=== PATIENT | male | born 1950 | race Caucasian/White ===

== ENCOUNTER 2018-08-11 03:12 | Outpatient (CLI) | payer MEDICARE, OTHER, SELFPAY ==
[2018-08-11 09:03] LABS: ALT 39 U/L (12-78); AST 22 U/L (15-37); Albumin 3.7 g/dL (3.4-5.0); Alkaline Phosphatase 81 U/L (46-116); Anion Gap 10.7 mmol/L (3-11); BUN 17 mg/dL (7-18); Bilirubin, Total 1.1 mg/dL (0.2-1.0); CO2 27.3 mmol/L (21.0-32.0); CREATININE 0.88 mg/dL (0.70-1.30); Calcium 8.8 mg/dL (8.5-10.1); Chloride 103 mmol/L (98-107); Cholesterol 143 mg/dL (50-200); Glucose 95 mg/dL (70-100); HDL Cholesterol 59 mg/dL (40-60); LDL CHOLESTEROL 79 mg/dL (<100); Potassium 4.2 mmol/L (3.5-5.1); Sodium 141 mmol/L (136-145); Triglyceride 80 mg/dL (30-150)
== END 2018-08-11 03:32 ==
PROVIDERS: PCP Family Medicine; Visit Provider Family Medicine
DX: E78.5 Hyperlipidemia, unspecified (principal); I10 Essential (primary) hypertension; I25.810 Atherosclerosis of coronary artery bypass graft(s) without angina pectoris
CPT/HCPCS: 36415; 80053; 80061; 83721

== ENCOUNTER 2019-10-03 01:37 | Outpatient (CLI) | payer MEDICARE, OTHER, SELFPAY ==
[2019-10-03 08:06] LABS: HCT 48.3 % (40.0-50.0); HGB 16.3 g/dL (13.5-17.5); Mean Corp. HGB Concentration 33.7 g/dL (32.0-36.0); Mean Corpuscular Hemoglobin 32.3 pg (27.0-33.0); Mean Corpuscular Volume 95.8 fL (80-95); Mean Platelet Volume 9.4 fL (8.0-11.0); Platelet Count 273 x1000/uL (130-400); RBC 5.04 m/cumm (4.50-6.00); White Blood Cell Count 6.73 k/cumm (4.4-10.8)
[2019-10-03 09:30] LABS: ALT 40 U/L (16-63); AST 17 U/L (15-37); Albumin 3.6 g/dL (3.4-5.0); Alkaline Phosphatase 84 U/L (46-116); Anion Gap 8.9 mmol/L (3-11); BUN 15 mg/dL (7-18); Bilirubin, Total 0.8 mg/dL (0.2-1.0); CO2 28.1 mmol/L (21.0-32.0); CREATININE 0.82 mg/dL (0.70-1.30); Calcium 8.9 mg/dL (8.5-10.1); Calculated LDL 83 mg/dL; Chloride 104 mmol/L (98-107); Cholesterol 159 mg/dL (<200); Glucose 102 mg/dL (74-106); HDL Cholesterol 56 mg/dL (40-60); Potassium 4.1 mmol/L (3.5-5.1); Sodium 141 mmol/L (136-145); Total Protein 7.3 g/dL (6.4-8.2); Triglyceride 102 mg/dL (<150)
== END 2019-10-03 01:57 ==
PROVIDERS: PCP Family Medicine; Visit Provider Family Medicine
DX: E78.5 Hyperlipidemia, unspecified (principal); I25.810 Atherosclerosis of coronary artery bypass graft(s) without angina pectoris
CPT/HCPCS: 36415; 80053; 80061; 85027

== ENCOUNTER 2020-09-01 02:46 | Outpatient (CLI) | payer MEDICARE, OTHER, SELFPAY ==
[2020-09-01 10:31] LABS: ALT 52 U/L (16-63); AST 28 U/L (15-37); Albumin 3.7 g/dL (3.4-5.0); Alkaline Phosphatase 75 U/L (46-116); Anion Gap 10.5 mmol/L (3-11); BUN 17 mg/dL (7-18); Bilirubin, Total 0.8 mg/dL (0.2-1.0); CO2 26.5 mmol/L (21.0-32.0); Calcium 8.9 mg/dL (8.5-10.1); Calculated LDL 86 mg/dL (<100); Chloride 105 mmol/L (98-107); Cholesterol 167 mg/dL (<200); Glucose 102 mg/dL (74-106); HDL Cholesterol 62 mg/dL (40-60); Magnesium 2.2 mg/dL (1.8-2.4); Potassium 4.4 mmol/L (3.5-5.1); Sodium 142 mmol/L (136-145); Total Protein 7.3 g/dL (6.4-8.2); Triglyceride 96 mg/dL (<150)
== END 2020-09-01 03:06 ==
PROVIDERS: PCP Family Medicine; Visit Provider Family Medicine
DX: E78.5 Hyperlipidemia, unspecified (principal); I10 Essential (primary) hypertension; I25.810 Atherosclerosis of coronary artery bypass graft(s) without angina pectoris
CPT/HCPCS: 36415; 80053; 80061; 83735

== ENCOUNTER 2021-03-03 17:01 | Emergency (ER) | payer MEDICARE, OTHER, SELFPAY ==
[2021-03-03 17:07] VITALS: BP 131/72; PULSE 68; RESP 20; TEMP 36.2; O2SAT 95
[2021-03-03] MEDS: Acetaminophen 500 MG TAB 1000 MG PO (17:26)
--- NOTE | 2021-03-03 17:28 | W.ED.GENAD ---
Discharge Plan Disposition Patient Disposition: HOME Condition: Improving Discharge Details Clinical Impression: Laceration of left ring finger Primary Care Provider: Jenise Corbin ED Provider: Jamie Joyce Home Meds and New Rx's Prescriptions: Continued loratadine [Allergy Relief (loratadine)] 10 mg tablet 10 mg PO DAILY RF: 0 atorvastatin 40 mg tablet 40 mg PO DAILY Qty: 90 RF: 12 betamethasone dipropionate 0.05 % ointment 1 applic topical BID PRN (Reason: rash) Qty: 45 RF: 3 clopidogrel [Plavix] 75 mg tablet 75 mg PO DAILY Qty: 90 RF: 4 celecoxib [Celebrex] 200 mg capsule 200 mg PO DAILY Qty: 90 RF: 5 diltiazem HCl [Cartia XT] 180 mg capsule,extended release 24hr 180 mg PO DAILY Qty: 90 RF: 12 magnesium chloride [Mag 64] 64 mg tablet,delayed release (DR/EC) 128 mg PO DAILY Qty: 180 RF: 4 nitroglycerin [Nitrostat] 0.3 mg tablet, sublingual 0.3 mg sublingual Q5-15M MDD 3 PRN (Reason: chest pain) Qty: 25 RF: 4 triamterene-hydrochlorothiazid 37.5-25 mg tablet 0.5 tab PO DAILY Qty: 45 RF: 5 aspirin [Ecotrin Low Strength] 81 MG tablet,delayed release (DR/EC) 81 mg PO DAILY RF: 0 gzvtlpxscrp-miiqzkoxo-rqd C-Mn 1 EACH tablet 1 ea PO BID RF: 0 cinnamon bark (bulk) 1 GM powder 1 tsp PO DAILY RF: 0 multivitamin [Daily Vitamin] 1 EACH tablet 1 tab PO DAILY RF: 0 honey flavor (bulk) 120 ML liquid 1 tsp PO QAM RF: 0 Discharge Instructions Instructions: Finger Laceration (ED) Additional Instructions: Return for removal of sutures in 7 to 10 days time. Return sooner if you develop fever, foul-smelling discharge from the wound, spreading redness, or any other acute concerns. Leave current Band-Aid in place for 48 hours, then may perform once daily gentle soap and water cleanse, pat dry and replace Band-Aid. Wear splint as needed for comfort. Continue your regular medications. Medical Decision Making 70-year-old male who lacerated the volar surface of his right ring finger while lifting up an unknown hitched tailgate on a 1 ton dump truck. Finger was pinched. He states his tetanus is up-to-date. He was not injured in any other way. He has slight dysesthesia of the distal radial aspect of the volar pad of the finger. Sensation is otherwise intact including two-point discrimination approximately 1 cm. Patient referred for x-ray which does not reveal underlying bony injury. The wound was anesthetized with digital block, irrigated, examined in a bloodless field without evidence of foreign body. Repaired with interrupted 8-0 nylon sutures. Splint offered for comfort. Patient will return to ER for removal of stitches. He understands return indications in the interim. HPI General Mode of arrival: ambulatory. Date/Time Provider Initiated Documentation: 03/03/21 17:03. Limitations to Documentation: no limitations. Information obtained by: patient. History of Present Illness 70 year old M presents to the emergency department with the chief complaint of R 4th finger inj, described as moderate, Quality is described as dull and constant, and is localized to the right and upper extremity. Patient reports no radiation. Patient started experiencing this minute(s) and it has been constant. No relieving factors improve symptom(s), No exacerbating factors reported . Patient notes no other symptoms.. Patient did receive the following treatments prior to arrival, none HPI Narrative: R 4th ring finger injury Related Data Home Medications Medication Instructions Recorded Confirmed aspirin [Ecotrin Low Strength] 81 mg PO DAILY tab-cap 04/04/13 03/03/21 yqrblkxdlrj-gjhpsqqgy-eff C-Mn 1 ea PO BID 04/04/13 03/03/21 cinnamon bark (bulk) 1 tsp PO DAILY 07/31/13 03/03/21 multivitamin [Daily Vitamin] 1 tab PO DAILY 07/30/14 03/03/21 honey flavor (bulk) 1 tsp PO QAM 07/13/15 03/03/21 loratadine 10 mg tablet 10 mg PO DAILY 10/09/19 03/03/21 atorvastatin 40 mg tablet 40 mg PO DAILY #90 tab-cap 10/13/20 03/03/21 betamethasone dipropionate 0.05 % 1 applic TOPICAL BID PRN #45 g 10/13/20 03/03/21 topical ointment celecoxib 200 mg capsule 200 mg PO DAILY #90 cap 10/13/20 03/03/21 clopidogrel 75 mg tablet 75 mg PO DAILY #90 tab-cap 10/13/20 03/03/21 diltiazem HCl 180 mg 180 mg PO DAILY #90 tab-cap 10/13/20 03/03/21 capsule,extended release 24 hr magnesium chloride 64 mg 128 mg PO DAILY #180 tab 10/13/20 03/03/21 (magnesium chloride) tablet,delayed release nitroglycerin 0.3 mg sublingual 0.3 mg SUBLINGUAL Q5-15M PRN #25 10/13/20 03/03/21 tablet tab-cap MDD 3 triamterene 37.5 0.5 tab PO DAILY #45 tab 10/13/20 03/03/21 mg-hydrochlorothiazide 25 mg tablet Previous Rx's Medication Instructions Recorded atorvastatin 40 mg tablet 40 mg PO DAILY #90 tab-cap 10/13/20 betamethasone dipropionate 0.05 % 1 applic TOPICAL BID PRN #45 g 10/13/20 topical ointment celecoxib 200 mg capsule 200 mg PO DAILY #90 cap 10/13/20 clopidogrel 75 mg tablet 75 mg PO DAILY #90 tab-cap 10/13/20 diltiazem HCl 180 mg 180 mg PO DAILY #90 tab-cap 10/13/20 capsule,extended release 24 hr magnesium chloride 64 mg 128 mg PO DAILY #180 tab 10/13/20 (magnesium chloride) tablet,delayed release nitroglycerin 0.3 mg sublingual 0.3 mg SUBLINGUAL Q5-15M PRN #25 10/13/20 tablet tab-cap MDD 3 triamterene 37.5 0.5 tab PO DAILY #45 tab 10/13/20 mg-hydrochlorothiazide 25 mg tablet Allergies Allergy/AdvReac Type Severity Reaction Status Date / Time Tetanus Vaccines and Toxoid Allergy Unknown LARGE Unverified 03/03/21 17:11 [Tetanus Vaccines \T\ Toxoid] LOCAL REACTION oxycodone AdvReac Intermediate HALLUCINATI Unverified 03/03/21 17:11 ONS ezetimibe AdvReac INTOLERANT Unverified 03/03/21 17:11 CAT HAIR Allergy Unknown Uncoded 03/03/21 17:11 DUST Allergy Unknown Uncoded 03/03/21 17:11 POLLEN EXTRACTS Allergy Unknown Uncoded 03/03/21 17:11 General Stated Complaint: Laceration HUONG: 4 Review of Systems Narrative: Tetatnus up to date, no other injury [facility], [facility] Medical History Actinic keratosis (08/15/17) CAD (coronary artery disease) [place] 1987 w/ CABG stents placed 05/06 stress test 07/2014 CAD (coronary artery disease) of artery bypass graft (10/15/14) [place] 1987 w/ CABG stents placed 05/06 stress test 07/2014 Chronic cystitis CVA (cerebral vascular accident) CVA (cerebral vascular accident) (10/15/14) about 48yoa risidual left sided parasthesias Diverticulosis (10/15/14) pandiverticulosis Eczema (10/15/14) Essential hypertension Essential hypertension (10/05/13) Herpes zoster (09/22/01) Hyperlipidemia Hyperlipidemia (04/09/13) Old myocardial infarction (09/22/88) Smoker Transient ischemic attack Tubular adenoma of colon (10/15/14) Vertigo Surgical History Appendectomy CABG x 3 2002 Colonoscopy - MAC (06/04/16) 06/04/16 Dr Marek Cano, fragements tubular adenoma, repeat 3 years 2008 2012 Patellectomy Status post appendectomy Status post three vessel coronary artery bypass Status post tonsillectomy Status post vasectomy Tonsillectomy Vasectomy Family History (Updated 10/14/20 @ 11:12 by Krysten Harding) Mother , age 67 Breast cancer Lung cancer Brain cancer Father , age 69 Diabetes Alcohol abuse Heart disease Stroke Paternal Grandfather Hypertensive disorder, systemic arterial Heart disease Paternal Grandmother Hypertensive disorder, systemic arterial Maternal Grandmother Diabetes Social History (Updated 10/14/20 @ 11:07 by Krysten Harding) Smoking/Tobacco Use Status: Former Tobacco Use Quit Date: 10/24/1967 Tobacco: How many years used: 5 Second Hand Exposure: Yes Smoking risk assessment performed?: Yes Alcohol Intake: current Alcohol Intake frequency: 0-2 drinks per day Alcohol type: beer and hard liquor Drug use: Never Substance use type: does not use Caregiver/Support person: No Household members: spouse Housing: house Communication Needs: None Do you need help understanding health information?: Rarely Pets and animals: No Sexually active: Yes Do you think of yourself as: straight/heterosexual Current gender identity: male What is your relationship status?: How often do you talk on the phone with friends or family?: three or more times per week How often do you get together with friends or relatives?: three or more times per week How often do you attend mandaeism or sabianist services?: decline to answer Do you belong to any clubs or organized social groups?: decline to answer Panel score (0-1 are the most socially isolated patients): 2 What type of physical activity do you participate in: walking Duration: 30-45 minutes/day Frequency: 5-6 times per week Adrianna/Synagogue: [employer] Special adrianna needs: No Seatbelt use: always Helmet use: Yes Helmet use: always Drive intox or ride w/intox [employer] driver: No Do you feel safe at home: Yes Do you feel safe in your relationship?: Yes Victim of physical abuse: No Victim of emotional abuse: No Victim of sexual abuse: No Would you like helpful sources: No Exam Narrative Exam Narrative: GEN: awake, alert, oriented 3. Pleasant, well groomed, interactive. HEAD: Normocephalic, atraumatic EXT: Right ring finger laceration, motor intact, slight dysesthesia of the distal radial aspect of the volar pad of the finger, chevron shaped volar, 3 cm laceration overlying the midportion of the palmar aspect of the right ring finger. Full ROM, no edema, no rash Neuro: Grossly normal neurologic exam, conversant, interactive. Psych: Speech fluent, thoughts congruent, affect normal Course Vital Signs Vital signs: Vital Signs Temperature 36.2 C L 03/03/21 17:07 Pulse 68 03/03/21 17:07 Respiratory Rate 20 03/03/21 17:07 Blood Pressure 131/72 03/03/21 17:07 Pulse Oximetry 95 03/03/21 17:07 Temperature 36.2 C L 03/03/21 17:07 Temperature Source Temporal Artery Scan 03/03/21 17:07 Pulse 68 03/03/21 17:07 Respiratory Rate 20 03/03/21 17:07 Respiratory Effort 03/03/21 17:15 Blood Pressure 131/72 03/03/21 17:07 Blood Pressure Position Supine 03/03/21 17:07 Pulse Oximetry 95 03/03/21 17:07 Oxygen Delivery Method Room Air 03/03/21 17:07 Oxygen Flow Rate 0 03/03/21 17:07 Pain Level 2 03/03/21 17:26 Procedures Laceration Laceration 1: Site: hand Side (If applicable): right Size (cm): 3.0 Description: irregular and clean Depth: simple, single layer Local Anesthetic: Lidocaine 1% Pre-repair: wound explored, irrigated extensively and deep structures intact Skin layer closed with: nylon Size (cm): 4-0 Number of sutures: 8 Technique: simple, interrupted
--- NOTE | 2021-03-03 17:52 | DI.RAD_ITS ---
Exam(s) XR FINGER RT RING POST REDUC EXAM: XR FINGER RT RING POST REDUC CLINICAL HISTORY: mid volar pain. TECHNIQUE: 2D digital imaging was performed. COMPARISON: No exams were available for comparison FINDINGS: In there is no evidence of acute fracture or dislocation no radiopaque foreign body. No osseous lesi ons. There is moderate narrowing of the metacarpophalangeal joint of the 3rd finger. No erosions at this level nor elsewhere. Significant degenerative changes also noted at the interphalangeal joint of the thumb. Also degenerative changes at the DIP joints of the 2nd-index finger and small calcific density adjacent to this. Also significant degenerative changes at the articulation between the austin mb metacarpal and trapezium. IMPRESSION: DATA REPOSITORY: RADIATION DOSE DELIVERED:
--- NOTE | 2021-03-03 18:06 | DI.VRAD_ITS ---
PROCEDURE INFORMATION: Exam: XR Right Finger(s) Exam date and time: 03/03/2021 5:54 PM Age: 70 years old Clinical indication: Finger(s); Right; Patient HX: Mid volar pain TECHNIQUE: Imaging protocol: XR Right fingers. Views: Minimum 2 views. COMPARISON: No relevant prior studies available. FINDINGS: Bones/joints: There is arthrosis involving the right triscaphe, thumb carpometacarpal and thumb interphalangeal joints with loss of joint space and marginal osteophyte formation, and there is also prominent subchondral cystic change seen at the thumb carpometacarpal articulation. There is spurring of the volar margin of the 3rd metacarpal head and mild arthrosis involving the right index finger interphalangeal joint. No acute fractures are detected. Soft tissues: Unremarkable. 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 Dictated and Authenticated by: Geremias Chaney MD. Ordering:MILTON Ayala MD
== END 2021-03-03 18:17 | disposition home or self-care (01) ==
PROVIDERS: Emergency Provider Emergency Medicine; PCP Family Medicine
DX: S67.194A Crushing injury of right ring finger, initial encounter (principal); S61.214A Laceration without foreign body of right ring finger without damage to nail, initial encounter; W23.0XXA Caught, crushed, jammed, or pinched between moving objects, initial encounter
CPT/HCPCS: 12002; 73140; 99281

== ENCOUNTER 2021-03-13 08:47 | Emergency (ER) | payer MEDICARE, OTHER, SELFPAY ==
--- NOTE | 2021-03-13 08:51 | W.ED.GENAD ---
Discharge Plan Disposition Patient Disposition: HOME Condition: Good Discharge Details Clinical Impression: Laceration of left ring finger Primary Care Provider: Jenise Corbin ED Provider: Kimberley Mullins Home Meds and New Rx's Prescriptions: No Action loratadine [Allergy Relief (loratadine)] 10 mg tablet 10 mg PO DAILY RF: 0 atorvastatin 40 mg tablet 40 mg PO DAILY Qty: 90 RF: 12 betamethasone dipropionate 0.05 % ointment 1 applic topical BID PRN (Reason: rash) Qty: 45 RF: 3 clopidogrel [Plavix] 75 mg tablet 75 mg PO DAILY Qty: 90 RF: 4 celecoxib [Celebrex] 200 mg capsule 200 mg PO DAILY Qty: 90 RF: 5 diltiazem HCl [Cartia XT] 180 mg capsule,extended release 24hr 180 mg PO DAILY Qty: 90 RF: 12 magnesium chloride [Mag 64] 64 mg tablet,delayed release (DR/EC) 128 mg PO DAILY Qty: 180 RF: 4 nitroglycerin [Nitrostat] 0.3 mg tablet, sublingual 0.3 mg sublingual Q5-15M MDD 3 PRN (Reason: chest pain) Qty: 25 RF: 4 triamterene-hydrochlorothiazid 37.5-25 mg tablet 0.5 tab PO DAILY Qty: 45 RF: 5 aspirin [Ecotrin Low Strength] 81 MG tablet,delayed release (DR/EC) 81 mg PO DAILY RF: 0 vxzdgaxtren-gvhbdccbu-cso C-Mn 1 EACH tablet 1 ea PO BID RF: 0 cinnamon bark (bulk) 1 GM powder 1 tsp PO DAILY RF: 0 multivitamin [Daily Vitamin] 1 EACH tablet 1 tab PO DAILY RF: 0 honey flavor (bulk) 120 ML liquid 1 tsp PO QAM RF: 0 Discharge Instructions Instructions: Finger Laceration (ED) Additional Instructions: Please return with spreading redness, worsening pain, or with any new or concerning symptoms Should you have persistent diminished sensation, please follow-up with orthopedics as listed the follow-up alone Referrals: Stefano Hutson MD [ [facility] STAFF PHYSICIAN] - Medical Decision Making Orthopedic referral should symptoms of paresthesia persist No evidence of secondary cellulitis, discharged home to condition with stable vitals Differential Diagnosis Differential Diagnosis: Laceration, tendon injury, abrasion, cellulitis HPI General Mode of arrival: ambulatory. Date/Time Provider Initiated Documentation: 03/13/21 08:48. Limitations to Documentation: no limitations. Information obtained by: patient. HPI Narrative: This 70-year-old gentleman is here for suture removal. He is due to placed on 03 March. He has some mild paresthesias to the distal aspect of the finger but range of motion is intact patient denies any strength or sensation change. Related Data Home Medications Medication Instructions Recorded Confirmed aspirin [Ecotrin Low Strength] 81 mg PO DAILY tab-cap 04/04/13 03/03/21 tnfagizjzii-ayvxtlklb-ugu C-Mn 1 ea PO BID 04/04/13 03/03/21 cinnamon bark (bulk) 1 tsp PO DAILY 07/31/13 03/03/21 multivitamin [Daily Vitamin] 1 tab PO DAILY 07/30/14 03/03/21 honey flavor (bulk) 1 tsp PO QAM 07/13/15 03/03/21 loratadine 10 mg tablet 10 mg PO DAILY 10/09/19 03/03/21 atorvastatin 40 mg tablet 40 mg PO DAILY #90 tab-cap 10/13/20 03/03/21 betamethasone dipropionate 0.05 % 1 applic TOPICAL BID PRN #45 g 10/13/20 03/03/21 topical ointment celecoxib 200 mg capsule 200 mg PO DAILY #90 cap 10/13/20 03/03/21 clopidogrel 75 mg tablet 75 mg PO DAILY #90 tab-cap 10/13/20 03/03/21 diltiazem HCl 180 mg 180 mg PO DAILY #90 tab-cap 10/13/20 03/03/21 capsule,extended release 24 hr magnesium chloride 64 mg 128 mg PO DAILY #180 tab 10/13/20 03/03/21 (magnesium chloride) tablet,delayed release nitroglycerin 0.3 mg sublingual 0.3 mg SUBLINGUAL Q5-15M PRN #25 10/13/20 03/03/21 tablet tab-cap MDD 3 triamterene 37.5 0.5 tab PO DAILY #45 tab 10/13/20 03/03/21 mg-hydrochlorothiazide 25 mg tablet Previous Rx's Medication Instructions Recorded atorvastatin 40 mg tablet 40 mg PO DAILY #90 tab-cap 10/13/20 betamethasone dipropionate 0.05 % 1 applic TOPICAL BID PRN #45 g 10/13/20 topical ointment celecoxib 200 mg capsule 200 mg PO DAILY #90 cap 10/13/20 clopidogrel 75 mg tablet 75 mg PO DAILY #90 tab-cap 10/13/20 diltiazem HCl 180 mg 180 mg PO DAILY #90 tab-cap 10/13/20 capsule,extended release 24 hr magnesium chloride 64 mg 128 mg PO DAILY #180 tab 10/13/20 (magnesium chloride) tablet,delayed release nitroglycerin 0.3 mg sublingual 0.3 mg SUBLINGUAL Q5-15M PRN #25 10/13/20 tablet tab-cap MDD 3 triamterene 37.5 0.5 tab PO DAILY #45 tab 10/13/20 mg-hydrochlorothiazide 25 mg tablet Allergies Allergy/AdvReac Type Severity Reaction Status Date / Time Tetanus Vaccines and Toxoid Allergy Unknown LARGE Unverified 03/03/21 17:11 [Tetanus Vaccines \T\ Toxoid] LOCAL REACTION oxycodone AdvReac Intermediate HALLUCINATI Unverified 03/03/21 17:11 ONS ezetimibe AdvReac INTOLERANT Unverified 03/03/21 17:11 CAT HAIR Allergy Unknown Uncoded 03/03/21 17:11 DUST Allergy Unknown Uncoded 03/03/21 17:11 POLLEN EXTRACTS Allergy Unknown Uncoded 03/03/21 17:11 General HUONG: 4 Review of Systems Narrative: ROS obtained x3 aside from where indicated in HPI [facility] Medical History Actinic keratosis (08/15/17) CAD (coronary artery disease) [place] 1987 w/ CABG stents placed 05/06 stress test 07/2014 CAD (coronary artery disease) of artery bypass graft (10/15/14) [place] 1987 w/ CABG stents placed 05/06 stress test 07/2014 Chronic cystitis CVA (cerebral vascular accident) CVA (cerebral vascular accident) (10/15/14) about 48yoa risidual left sided parasthesias Diverticulosis (10/15/14) pandiverticulosis Eczema (10/15/14) Essential hypertension Essential hypertension (10/05/13) Herpes zoster (09/22/01) Hyperlipidemia Hyperlipidemia (04/09/13) Old myocardial infarction (09/22/88) Smoker Transient ischemic attack Tubular adenoma of colon (10/15/14) Vertigo Surgical History Appendectomy CABG x 3 2002 Colonoscopy - MAC (06/04/16) 06/04/16 Dr Marek Cano, fragements tubular adenoma, repeat 3 years 2008 2012 Patellectomy Status post appendectomy Status post three vessel coronary artery bypass Status post tonsillectomy Status post vasectomy Tonsillectomy Vasectomy Family History (Updated 10/14/20 @ 11:12 by Krysten Harding) Mother , age 67 Breast cancer Lung cancer Brain cancer Father , age 69 Diabetes Alcohol abuse Heart disease Stroke Paternal Grandfather Hypertensive disorder, systemic arterial Heart disease Paternal Grandmother Hypertensive disorder, systemic arterial Maternal Grandmother Diabetes Social History (Updated 10/14/20 @ 11:07 by Krysten Harding) Smoking/Tobacco Use Status: Former Tobacco Use Quit Date: 10/24/1967 Tobacco: How many years used: 5 Second Hand Exposure: Yes Smoking risk assessment performed?: Yes Alcohol Intake: current Alcohol Intake frequency: 0-2 drinks per day Alcohol type: beer and hard liquor Drug use: Never Substance use type: does not use Caregiver/Support person: No Household members: spouse Housing: house Communication Needs: None Do you need help understanding health information?: Rarely Pets and animals: No Sexually active: Yes Do you think of yourself as: straight/heterosexual Current gender identity: male What is your relationship status?: How often do you talk on the phone with friends or family?: three or more times per week How often do you get together with friends or relatives?: three or more times per week How often do you attend orthodox or evangelical services?: decline to answer Do you belong to any clubs or organized social groups?: decline to answer Panel score (0-1 are the most socially isolated patients): 2 What type of physical activity do you participate in: walking Duration: 30-45 minutes/day Frequency: 5-6 times per week Adrianna/Worship: Yazidism Special adrianna needs: No Seatbelt use: always Helmet use: Yes Helmet use: always Drive intox or ride w/intox driver utility worker: No Do you feel safe at home: Yes Do you feel safe in your relationship?: Yes Victim of physical abuse: No Victim of emotional abuse: No Victim of sexual abuse: No Would you like helpful sources: No Exam Neuro Other: left 4th digit with well-approximated laceration without evidence of secondary infection, ROM intact mild diminished sensation to tuft, brisk cap refill
[2021-03-13 08:52] VITALS: BP 139/75; PULSE 76; RESP 14; TEMP 36.4; O2SAT 99
== END 2021-03-13 09:11 | disposition home or self-care (01) ==
PROVIDERS: Emergency Provider Physician Assistant; PCP Family Medicine
DX: Z48.02 Encounter for removal of sutures (principal); S61.215D Laceration without foreign body of left ring finger without damage to nail, subsequent encounter; X58.XXXD Exposure to other specified factors, subsequent encounter

== ENCOUNTER 2021-09-03 02:24 | Outpatient (CLI) | payer MEDICARE, OTHER, SELFPAY ==
[2021-09-05 14:43] LABS: Lipoprotein (a) 287 nmol/L (<75)
== END 2021-09-03 02:25 | disposition home or self-care (01) ==
LOC: LBO 02:24
PROVIDERS: PCP Family Medicine; Visit Provider Family Medicine
DX: I25.810 Atherosclerosis of coronary artery bypass graft(s) without angina pectoris (principal)
CPT/HCPCS: 36415; 83695

== ENCOUNTER 2021-10-06 03:02 | Outpatient (CLI) | payer MEDICARE, OTHER, SELFPAY ==
[2021-10-06 08:12] LABS: HGB 14.2 g/dL (13.5-17.5); MCH 31.7 pg (27.0-33.0); MCHC 32.3 % (32.0-36.0); MCV 98.2 fL (80-95); Platelet Count 303 10^3/uL (130-400); RBC 4.48 10^6/uL (4.36-5.78); RDW 12.9 % (11.8-14.1); RDW-SD 46.3 fL
[2021-10-06 08:48] LABS: ALT 35 U/L (16-63); AST 18 U/L (15-37); Albumin 3.2 g/dL (3.4-5.0); Alkaline Phosphatase 96 U/L (46-116); Anion Gap 8.6 mmol/L (3-11); BUN 15 mg/dL (7-18); Bilirubin, Total 0.7 mg/dL (0.2-1.0); CO2 28.4 mmol/L (21.0-32.0); CREATININE 0.8 mg/dL (0.70-1.30); Calcium 8.7 mg/dL (8.5-10.1); Calculated LDL 78 mg/dL (<100); Chloride 103 mmol/L (98-107); Cholesterol 138 mg/dL (<200); Glucose 106 mg/dL (74-106); HDL Cholesterol 38 mg/dL (40-60); Magnesium 2.1 mg/dL (1.8-2.4); Potassium 4.2 mmol/L (3.5-5.1); Sodium 140 mmol/L (136-145); Total Protein 7.4 g/dL (6.4-8.2); Triglyceride 111 mg/dL (<150)
== END 2021-10-06 03:03 | disposition home or self-care (01) ==
LOC: LBO 03:02
PROVIDERS: PCP Family Medicine; Visit Provider Family Medicine
DX: I10 Essential (primary) hypertension (principal); E78.5 Hyperlipidemia, unspecified
CPT/HCPCS: 36415; 80053; 80061; 85027; 83735

== ENCOUNTER → 2022-04-05 02:01 | Outpatient (CLI) | payer MEDICARE, OTHER, SELFPAY ==
--- NOTE | 2022-04-05 07:00 | DI.MAMMO_ITS ---
Exam(s) US BREAST LT COMPLETE MG MAMMO DIAGNOSTIC BI EXAM: MG MAMMO DIAGNOSTIC BI CLINICAL HISTORY: lt breast lump under nipple,n63.0. COMPARISON: US US BREAST LT COMPLETE from 04/05/2022 [id number] TECHNIQUE: Craniocaudal and mediolateral oblique Full Field Digital Mammography views of both breast s with Computer Aided Diagnosis followed by Tomosynthesis and left breast ultrasound. FINDINGS: Mammography/Tomosynthesis: Masses/Architectural Distortion: None seen. Microcalcifications: No suspicious pleomorphic-type are seen. Skin Thickening/Nipple Retraction: None. There is breast tissue development in the subareolar region of the left breast. The right breast is completely fatty. Left breast US: Echotexture: Small amount of glandular tissue development is noted in the subareolar region.. Shadowing: No suspicious foci. Cyst: None. Solid lesions: None seen. Ductal dilation: None. IMPRESSION: 1. No evidence of malignancy is noted. Findings are consistent with left gynecomastia. BI-RADS Category 2 - Benign Findings Breast Density - Category A - Almost entirely fatty A negative radiographic report should not delay biopsy if a dominant or clinically suspicious mass is present. Up to ten percent of cancers are not identified on mammography. A negative report may reinforce clinical impression. Adenosis and dense breasts may obscure an underlying neoplasm. False positive reports average 6 to 10%. Patient will receive a letter notifying them of these results.
== END ==
PROVIDERS: PCP Nurse Practitioner Family; Visit Provider Nurse Practitioner
DX: N63.42 Unspecified lump in left breast, subareolar (principal); N62 Hypertrophy of breast
CPT/HCPCS: 76642; 77062; 77066; G0279

== ENCOUNTER 2022-08-03 02:56 | Outpatient (CLI) | payer MEDICARE, OTHER, SELFPAY ==
[2022-08-03 07:48] LABS: Hemoglobin A1C 5.9 % (<5.7)
[2022-08-03 08:30] LABS: ALT 33 U/L (16-63); AST 19 U/L (15-37); Albumin 3.5 g/dL (3.4-5.0); Alkaline Phosphatase 91 U/L (46-116); Anion Gap 7.9 mmol/L (3-11); BUN 16 mg/dL (7-18); Bilirubin, Total 0.7 mg/dL (0.2-1.0); CO2 29.1 mmol/L (21.0-32.0); CREATININE 0.7 mg/dL (0.70-1.30); Calcium 9.2 mg/dL (8.5-10.1); Calculated LDL 67 mg/dL (<100); Chloride 102 mmol/L (98-107); Cholesterol 138 mg/dL (<200); Estimated GFR 96.69 (mL/min/1.73m2); Glucose 94 mg/dL (74-106); HDL Cholesterol 52 mg/dL (40-60); Potassium 4.3 mmol/L (3.5-5.1); Sodium 139 mmol/L (136-145); Total Protein 8.4 g/dL (6.4-8.2); Triglyceride 97 mg/dL (<150)
[2022-08-03 18:52] LABS: PSA, Screening 2.3 ng/mL (<=6.5)
== END 2022-08-03 02:57 | disposition home or self-care (01) ==
LOC: LBO 02:56
PROVIDERS: PCP Nurse Practitioner Family; Visit Provider Nurse Practitioner Family
DX: E78.5 Hyperlipidemia, unspecified (principal); I10 Essential (primary) hypertension; R73.01 Impaired fasting glucose; Z85.46 Personal history of malignant neoplasm of prostate; Z12.5 Encounter for screening for malignant neoplasm of prostate
CPT/HCPCS: 36415; 80053; 80061; 84153; 83036

== ENCOUNTER 2023-01-31 13:52 | Outpatient (CLI) | payer MEDICARE, OTHER, SELFPAY ==
--- NOTE | 2023-01-31 13:45 | RT.EKG_ITS ---
APPROVED REPORT Exam: Resting ECG Reason for Exam: CVA Patient Location: O HR:75 bpm ECG Measurements Heart Rate 75 AXIS RI 187 P 67 QRSd 92 QRS 47 QT 380 T 4 QTc 425 Conclusion Sinus rhythm...normal P axis, V-rate 50- 99 Multiple ventricular premature complexes...V complexes w/ short R-R intervls Left atrial enlargement...P, P'>60mS, <-0.15mV V1
== END 2023-01-31 13:53 | disposition home or self-care (01) ==
LOC: DI.CM 13:53
PROVIDERS: PCP Nurse Practitioner Family; Visit Provider Nurse Practitioner Family
DX: I63.9 Cerebral infarction, unspecified (principal); I49.3 Ventricular premature depolarization; I51.7 Cardiomegaly
CPT/HCPCS: 93010

== ENCOUNTER 2023-02-03 09:26 | Outpatient (CLI) | payer MEDICARE, OTHER, SELFPAY | END 2023-02-03 09:27 | disposition home or self-care (01) | PROVIDERS: PCP Nurse Practitioner Family; Visit Provider Nurse Practitioner Family | DX: I63.9 Cerebral infarction, unspecified (principal) | CPT/HCPCS: 93270 ==

== ENCOUNTER 2023-03-11 07:11 | Outpatient (CLI) | payer MEDICARE, SELFPAY ==
--- NOTE | 2023-03-11 08:28 | W.CARDEVENT ---
Date of service: 03/11/23 Time of Service: 08:29 Cardiac Event Recorder Referring Provider:: Syeda Singh Indications:: Cerebral infarction Cardiac Event Note: This is a cardiac event monitor ordered for cerebral infarction Patient was monitored for a total of 28 days. Rhythm throughout was sinus with an average heart rate of 84. Minimum was 58, maximum 111 There was no atrial fibrillation. There was possible very brief atrial flutter vs sinus rhythm with atrial premature beats and artifact There were occasional ventricular ectopic beats, several 3-4 beat runs of nonsustained ventricular tachycardia There were no apparent patient symptoms
== END 2023-03-11 07:12 | disposition home or self-care (01) ==
LOC: CARDOPNVT 07:11
PROVIDERS: PCP Nurse Practitioner Family; Visit Provider Internal Medicine Cardiovascular Disease
DX: I63.9 Cerebral infarction, unspecified (principal); I49.1 Atrial premature depolarization; I49.3 Ventricular premature depolarization; I47.20 Ventricular tachycardia, unspecified
CPT/HCPCS: 93272

== ENCOUNTER 2023-08-18 03:59 | Outpatient (CLI) | payer MEDICARE, SELFPAY ==
[2023-08-18 12:52] LABS: Hemoglobin A1C 5.6 % (<5.7)
[2023-08-18 12:55] LABS: ALT 46 U/L (16-63); AST 22 U/L (15-37); Albumin 3.7 g/dL (3.4-5.0); Alkaline Phosphatase 82 U/L (46-116); Anion Gap 9.1 mmol/L (3-11); BUN 24 mg/dL (7-18); Bilirubin, Total 0.6 mg/dL (0.2-1.0); CO2 26.9 mmol/L (21.0-32.0); Calcium 9.4 mg/dL (8.5-10.1); Chloride 103 mmol/L (98-107); Estimated GFR 78.49 (mL/min/1.73m2); Glucose 102 mg/dL (74-106); Potassium 4.5 mmol/L (3.5-5.1); Sodium 139 mmol/L (136-145); Total Protein 8.1 g/dL (6.4-8.2)
[2023-08-19 08:53] LABS: Hepatitis C Ab w Rflx HCV PCR Negative (Negative)
== END 2023-08-18 04:00 | disposition home or self-care (01) ==
LOC: LBO 03:59
PROVIDERS: PCP Nurse Practitioner Family; Visit Provider Nurse Practitioner Family
DX: R73.03 Prediabetes (principal); Z00.00 Encounter for general adult medical examination without abnormal findings
CPT/HCPCS: 36415; 80053; 86803; 83036

== ENCOUNTER → 2023-08-23 00:55 | Outpatient (CLI) | payer MEDICARE, SELFPAY ==
--- NOTE | 2023-08-23 07:15 | DI.NM_ITS ---
APPROVED REPORT Exam: Pharmacologic Patient Location: Out-Patient Room/Bed: Stress Nurse: Mariaelena Royal RN Ordering Provider:JOCELYN OROPEZA, Contact Number: [phone] BMI: 27.45 Baseline Rhythm: Sinus Rhythm Comment: Frequent PVC's Indications: CAD, intermittent chest pain, atherosclerotic heart disease Medical History Medical History: CAD, intermittent chest pain, CVA, [place], herpes zoster, TIA, former smoker, TIA, HTN, prediabetes, HLD Cardiac Medications: Aspirin, atorvastatin, celecoxib, clopidogrel, magnesium chloride, multivitamin, nitro, triamterene-hydrochlorothiazide, Allergies: Oxycodone, ezetimibe, tetanus vaccines, cat hair, dust, pollen Cardiac Risk Factors: Family hx, HTN, HLD, CVD, prediabetes, former smoker Previous Cardiac Procedures: Cardiac stents, 3 vessel bipass per patient report Pretest Chest Pain Characteristics: None Exercise History: Physically active Physical Disabilities: None Lung Sounds: Clear to auscultation Heart Sounds: Regular Stress Test Details Test: Pharmacologic stress was paired with low level exercise. Reason for pharmacologic stress test: ? intermittent BBB. Nuclear Acquisition: Rest Tc-99m/Stress Tc-99m 1 day Rest Isotope: Tc-99m Sestamibi. Dose: 9.5 Date: 08/23/2023 Injection Time: 0900 Stress Isotope: Tc-99m Sestamibi. Dose: 31.0 Date: 08/23/2023 Injection Time: 1020 HR Resting HR Supine: 61 bpm Max Heart Rate (APMHR): 145.474450 bpm Resting HR Standin bpm Target HR (85% APMHR): 123.157867 bpm Max HR Achieved: 128 bpm % of APMHR: 88.28 Recovery HR: 71 bpm HR response to stress: Normal HR response to stress BP Resting BP Supine: 150/90 mmHg Resting BP Standin/90 mmHg Max BP: 150/90 mmHg Recovery BP: 140/76 mmHg BP response to stress: Blunted blood pressure response to stress. ECG Resting ECG: Sinus Rhythm Ectopy: Occasional PVC's Stress ECG: Sinus Tachycardia Arrhythmia: Frequent PVC's, couplets, ? patient going in and out of BBB Recovery ECG: Sinus Rhythm Recovery Arrhythmia: Frequent PVC's, couplets, ? patient going in and out of BBB Clinical Stress Symptoms: 3/10 chest discomfort Exercise duration: 07 min00 sec Highest Stage Reached: 3 Exercise capacity: 6.90 METs Angina Score: Non-Limiting Jennings Treadmill Score: 0.4 Rate Pressure Product: 73701 Stress ECG Conclusion 1. Resting electrocardiogram showed first-degree AV block 2. Patient underwent testing using a combination of low-level exercise and pharmacologic stress with regadenoson. Peak workload achieved was a 6.9 METS. Peak heart rate was 88% of predicted for age 3. Electrocardiographic portion of the test was consistent with myocardial ischemia 4. PVCs were noted 5. See MPI report Jennings Treadmill Score is 0.4 which is Moderate risk. Stress Test Summary STAGE Time (mins) Speed (mph) Grade (%) HR BP SpO2 SYMPTOMS METS Supine 61 150/90 98 Standing 72 150/90 98 1 3 1.7 10 101 140/78 98 4.5 1 min post Lexiscan injection 106 150/78 3 min post Lexiscan injection 73 130/70 6 min post Lexiscan injection 75 140/76 MPI Conclusion Myocardial perfusion is abnormal. The posterolateral wall demonstrates moderate reversible ischemia superimposed on some degree of infarction Ejection fraction is 38%. Posterior lateral wall is hypokinetic Radiologist Interpretation Radiologist Interpretation by: Maikol Hobson MD Interpretation Date/Time: 08/23/2023 15:57:37
[2023-08-23] MEDS: Regadenoson 0.4 MG/5 ML SYR IVP (11:18)
== END ==
PROVIDERS: PCP Nurse Practitioner Family; Visit Provider Nurse Practitioner Family
DX: I25.10 Atherosclerotic heart disease of native coronary artery without angina pectoris (principal)
CPT/HCPCS: 78452; 93016; 93018; 93017; J2785

== ENCOUNTER 2023-11-21 03:52 | Outpatient (CLI) | payer MEDICARE, SELFPAY ==
[2023-11-21 12:38] LABS: Calculated LDL 86 mg/dL (<100); Cholesterol 172 mg/dL (<200); HDL Cholesterol 54 mg/dL (40-60); Triglyceride 164 mg/dL (<150)
== END 2023-11-21 03:53 | disposition home or self-care (01) ==
LOC: LOS 03:52
PROVIDERS: PCP Nurse Practitioner Family; Visit Provider Internal Medicine Cardiovascular Disease
DX: E78.5 Hyperlipidemia, unspecified (principal); I25.10 Atherosclerotic heart disease of native coronary artery without angina pectoris
CPT/HCPCS: 36415; 80061

== ENCOUNTER 2024-03-08 05:07 | Outpatient (CLI) | payer MEDICARE, SELFPAY ==
[2024-03-08 09:42] LABS: HCT 49.3 % (40.0-50.0); HGB 16.2 g/dL (13.5-17.5); MCHC 32.9 % (32.0-36.0); MCV 100 fL (80-95); MPV 9.3 fL (8.0-11.0); Platelet Count 230 10^3/uL (130-400); RBC 4.91 10^6/uL (4.36-5.78); RDW 12.8 % (11.8-14.1); RDW-SD 48.2 fL; WBC 6.71 10^3/uL (4.4-10.8)
[2024-03-08 10:50] LABS: ALT 37 U/L (16-63); AST 24 U/L (15-37); Alkaline Phosphatase 75 U/L (46-116); Anion Gap 8.3 mmol/L (3-11); BUN 25 mg/dL (7-18); CO2 29.7 mmol/L (21.0-32.0); Calcium 9.3 mg/dL (8.5-10.1); Calculated LDL 75 mg/dL (<100); Chloride 103 mmol/L (98-107); Cholesterol 157 mg/dL (<200); Estimated GFR 78.49 (mL/min/1.73m2); Glucose 106 mg/dL (74-106); HDL Cholesterol 63 mg/dL (40-60); Magnesium 2.3 mg/dL (1.8-2.4); Potassium 4.6 mmol/L (3.5-5.1); Sodium 141 mmol/L (136-145); TSH (W/Ref FT4) 1.86 uIU/mL (0.36-3.74); Total Protein 8.4 g/dL (6.4-8.2); Triglyceride 96 mg/dL (<150)
[2024-03-08 21:04] LABS: PSA, Screening 2.3 ng/mL (<=6.5)
== END 2024-03-08 05:08 | disposition home or self-care (01) ==
PROVIDERS: PCP Nurse Practitioner Family; Visit Provider Nurse Practitioner Family
DX: Z86.73 Personal history of transient ischemic attack (TIA), and cerebral infarction without residual deficits (principal); Z12.5 Encounter for screening for malignant neoplasm of prostate; L40.9 Psoriasis, unspecified; I25.10 Atherosclerotic heart disease of native coronary artery without angina pectoris
CPT/HCPCS: 36415; 80053; 80061; 84153; 85027; 83735; 84443

== ENCOUNTER 2024-03-31 07:45 | Emergency (ER) | payer MEDICARE, SELFPAY ==
[2024-03-31] VITALS (48 sets, daily range): BP systolic 118–153; BP diastolic 59–91; PULSE 46–81; RESP 12–27; TEMP 36.5; O2SAT 96–98
--- NOTE | 2024-03-31 07:45 | RT.EKG_ITS ---
APPROVED REPORT Exam: Resting ECG Reason for Exam: Patient Location: E HR:63 bpm ECG Measurements Heart Rate 63 AXIS TX 189 P -8 QRSd 96 QRS 60 QT 387 T -21 QTc 397 Conclusion Sinus rhythm...normal P axis, V-rate 60- 99 Ventricular trigeminy...trigeminy string>6 w/ V complexes Borderline ST elevation, anterior leads...ST >0.15mV in V1-V4
[2024-03-31] MEDS: Normal Saline Flush 10 ML SYR IVP (08:00)
--- NOTE | 2024-03-31 08:00 | DI.RAD_ITS ---
Exam(s) XR PORTABLE CHEST AP EXAM: XR PORTABLE CHEST AP CLINICAL HISTORY: chest pain. TECHNIQUE: 2D digital imaging was performed. COMPARISON: No exams were available for comparison FINDINGS: Single AP portable view. There is sternotomy wires and evidence of previous CABG. Mild cardiomegaly. Mediastinum is not widened. Lungs are clear. No infiltrates nor obvious pleural effusions. No evidence of pulmonary edema. IMPRESSION: No acute pulmonary findings on this single AP portable view of the chest. Sternotomy and mild cardiomegaly. DATA REPOSITORY: RADIATION DOSE DELIVERED:
[2024-03-31 08:10] LABS: Abs Immature Grans 0.01 10^3/uL (0.0-0.06); Absolute Basophil Count 0.04 10^3/uL (0.0-0.2); Absolute Eosinophil Count 0.38 10^3/uL (0.0-0.7); Absolute Lymphocyte Count 2.31 10^3/uL (1.2-3.4); Absolute Monocyte Count 0.68 10^3/uL (0.1-0.8); Absolute Neutrophil Count 3.72 10^3/uL (1.2-6.7); Basophils % 0.6 %; Eosinophils % 5.3 %; HCT 47.8 % (40.0-50.0); Immature Grans % 0.1 %; Lymphocytes % 32.4 %; MCH 33.3 pg (27.0-33.0); MCHC 33.5 % (32.0-36.0); MCV 99 fL (80-95); MPV 9.3 fL (8.0-11.0); Monocytes % 9.5 %; Neutrophils % 52.1 %; Platelet Count 211 10^3/uL (130-400); RBC 4.81 10^6/uL (4.36-5.78); RDW 12.7 % (11.8-14.1); RDW-SD 46.7 fL; WBC 7.14 10^3/uL (4.4-10.8)
[2024-03-31 08:25] LABS: PTT Activated 25.8 sec (23.6-32.8)
[2024-03-31 08:28] LABS: ALT 37 U/L (16-63); AST 19 U/L (15-37); Albumin 3.6 g/dL (3.4-5.0); Alkaline Phosphatase 70 U/L (46-116); Anion Gap 9.2 mmol/L (3-11); BUN 20 mg/dL (7-18); Bilirubin, Total 0.9 mg/dL (0.2-1.0); CO2 28.8 mmol/L (21.0-32.0); CREATININE 1.1 mg/dL (0.70-1.30); Calcium 8.8 mg/dL (8.5-10.1); Chloride 103 mmol/L (98-107); Estimated GFR 70.01 (mL/min/1.73m2); Glucose 105 mg/dL (74-106); Magnesium 2.1 mg/dL (1.8-2.4); Potassium 4.5 mmol/L (3.5-5.1); Sodium 141 mmol/L (136-145); Total Protein 7.7 g/dL (6.4-8.2); Troponin I < 50 ng/L (< or =60)
--- NOTE | 2024-03-31 09:02 | DI.VRAD_ITS ---
PROCEDURE INFORMATION: Exam: XR Chest Exam date and time: 03/31/2024 8:45 AM Age: 73 years old Clinical indication: Other: Chest pain TECHNIQUE: Imaging protocol: Radiologic exam of the chest. Views: 1 view. COMPARISON: No relevant prior studies available. FINDINGS: Lungs: No focal consolidation seen. Pleural spaces: No large pleural effusion seen. Heart/Mediastinum: Enlarged cardiac silhouette. Bones/joints: Grossly unremarkable. IMPRESSION: Enlarged cardiac silhouette. Dictated and Authenticated by: Tamia Rao MD. Ordering:CASTRO Alvares MD
--- NOTE | 2024-03-31 09:07 | W.ED.GENAD ---
Discharge Plan Disposition Patient Disposition: Home Condition: Stable Discharge Details Clinical Impression: Acute pain of left shoulder Primary Care Provider: Syeda Singh ED Provider: Giorgio Law Home Meds and New Rx's Prescriptions: Continued loratadine [Allergy Relief (loratadine)] 10 mg tablet 10 mg PO DAILY magnesium chloride [Mag 64] 64 mg tablet,delayed release (DR/EC) 128 mg PO DAILY Qty: 180 4RF aspirin 81 mg tablet,delayed release (DR/EC) 81 mg PO DAILY atorvastatin 80 mg tablet 80 mg PO DAILY uicfrxpjjsi-gukeozion-zum C-Mn 1 EACH tablet 1 ea PO BID cinnamon bark (bulk) 1 GM powder 1 tsp PO DAILY Rx Instructions: MIXES WITH 1 TBSPN HONEY multivitamin [Daily Vitamin] 1 EACH tablet 1 tab PO DAILY triamterene-hydrochlorothiazid 37.5-25 mg tablet 0.5 tab PO DAILY Qty: 45 3RF clopidogrel [Plavix] 75 mg tablet 75 mg PO DAILY Qty: 90 3RF celecoxib [Celebrex] 200 mg capsule 200 mg PO DAILY PRN (Reason: pain) Qty: 90 3RF nitroglycerin 0.4 mg tablet, sublingual 0.4 mg sublingual Q5-15M PRN (Reason: chest pain) Qty: 25 3RF Rx Instructions: 1 tablet every 5 minutes x 3 doses if needed for chest pain. Seek emergency services if not improving after first dose metoprolol succinate 50 mg tablet extended release 24 hr 50 mg PO DAILY Qty: 90 3RF honey flavor (bulk) 120 ML liquid 1 tsp PO QAM Discharge Instructions Instructions: Shoulder Pain (ED) Additional Instructions: Please rest over the next few days. Avoid any activities that worsen pain. Please contact your primary care physician to arrange follow-up. Return to the ER immediately for any worsening or new concerning symptoms. Referrals: Syeda Singh NP [Primary Care Provider] - Discharge Data Discharge Date/Time-TO BE ENTERED AT DEPARTURE: 03/31/24 12:13 HPI General Mode of arrival: ambulatory. Date/Time Provider Initiated Documentation: 03/31/24 07:58. Limitations to Documentation: no limitations. Information obtained by: patient. HPI Narrative: 73-year-old male with multiple medical problems including history of ASCVD, status post CABG and then subsequent stenting, CVA, hyperlipidemia, hypertension, here with chief complaint of left shoulder pain. Patient notes he woke up in the [facility] with left shoulder pain. Pain radiated to his neck. He took some nitroglycerin and went back to bed. When he woke up later in the morning he noted continued pain. Pain is improved without movement and laying flat. He notes when he moves his arm pain seems to worsen. Patient seems to be somewhat of a poor historian with poor short-term memory post CVA. Patient denies chest pain, abdominal pain, shortness of breath, nausea vomiting. Pain does not feel like prior cardiac chest pain. Related Data Home Medications Medication Instructions Recorded Confirmed [id number] C-Mn 750 1 ea PO BID 04/04/13 03/31/24 mg-600 mg-55 mg-5 mg tablet cinnamon bark (bulk) 1 tsp PO DAILY 07/31/13 03/31/24 multivitamin (Daily Vitamin tablet) 1 tab PO DAILY 07/30/14 03/31/24 honey flavor (bulk) 1 tsp PO QAM 07/13/15 03/31/24 loratadine 10 mg tablet (Allergy 10 mg PO DAILY 10/09/19 03/31/24 Relief (loratadine)) magnesium chloride 64 mg 128 mg (2 x 64 mg) PO DAILY #180 10/13/20 03/31/24 (magnesium chloride) tabs tablet,delayed release (Mag 64) aspirin 81 mg tablet,delayed 81 mg PO DAILY 01/31/23 03/31/24 release celecoxib 200 mg capsule (Celebrex) 200 mg PO DAILY PRN pain #90 caps 05/04/23 03/31/24 clopidogrel 75 mg tablet (Plavix) 75 mg PO DAILY #90 tab-caps 05/04/23 03/31/24 nitroglycerin 0.4 mg sublingual 0.4 mg sublingual Q5-15M PRN chest 05/04/23 03/31/24 tablet pain #25 tabs triamterene 37.5 0.5 tab PO DAILY #45 tabs 05/04/23 03/31/24 mg-hydrochlorothiazide 25 mg tablet metoprolol succinate 50 mg 50 mg PO DAILY #90 tabs 11/25/23 03/31/24 tablet,extended release 24 hr atorvastatin 80 mg tablet 80 mg PO DAILY 02/13/24 03/31/24 Previous Rx's Medication Instructions Recorded magnesium chloride 64 mg 128 mg (2 x 64 mg) PO DAILY #180 10/13/20 (magnesium chloride) tabs tablet,delayed release (Mag 64) celecoxib 200 mg capsule (Celebrex) 200 mg PO DAILY PRN pain #90 caps 05/04/23 clopidogrel 75 mg tablet (Plavix) 75 mg PO DAILY #90 tab-caps 05/04/23 nitroglycerin 0.4 mg sublingual 0.4 mg sublingual Q5-15M PRN chest 05/04/23 tablet pain #25 tabs triamterene 37.5 0.5 tab PO DAILY #45 tabs 05/04/23 mg-hydrochlorothiazide 25 mg tablet metoprolol succinate 50 mg 50 mg PO DAILY #90 tabs 11/25/23 tablet,extended release 24 hr Allergies Allergy/AdvReac Type Severity Reaction Status Date / Time Tetanus Vaccines and Toxoid Allergy Unknown LARGE Verified 03/31/24 08:14 [Tetanus Vaccines \T\ Toxoid] LOCAL REACTION oxycodone AdvReac Intermediate HALLUCINATI Verified 03/31/24 08:14 ONS ezetimibe AdvReac INTOLERANT Verified 03/31/24 08:14 CAT HAIR Allergy Mild Wheezing Uncoded 03/31/24 08:14 DUST Allergy Unknown Wheezing Uncoded 03/31/24 08:14 POLLEN EXTRACTS Allergy Unknown Wheezing Uncoded 03/31/24 08:14 General Stated Complaint: Chest Pain HUONG: 2 Review of Systems All systems reviewed & are unremarkable except as noted in HPI and below Constitutional Constitutional: Denies fever(s) Cardiovascular Cardiovascular: Reports as per HPI Exam Const General: cooperative and no acute distress HENND Mouth: moist mucous membranes Eyes Conjunctivae: normal conjunctivae Sclera: normal sclerae Neck Neck: trachea midline Resp Auscultation: clear to auscultation bilaterally, no rales, no rhonchi and no wheezes Cardio Rate: regular rate and not tachycardic Rhythm: regular rhythm Heart Sounds: no murmurs GI Palpation: soft, not firm, no guarding, no masses, not rigid and nontender Back/Spine/Pelvis Other: ttp left trapezius Skin General skin exam: no rashes or lesions noted Neuro General: patient alert, patient awake, patient oriented x3 and tone normal Extrem General: no calf tenderness and no edema Left upper extremity: shoulder/upper arm Details: no tenderness, no swelling, no ecchymosis, no deformity and no unsual warmth Psych Appearance: grossly normal Mental Status: mental status grossly normal Course Vital Signs Vital signs: Vital Signs Temperature 36.5 C 03/31/24 07:51 Pulse 79 03/31/24 07:51 Respiratory Rate 12 03/31/24 07:51 Blood Pressure 149/91 H 03/31/24 07:51 Pulse Oximetry 98 03/31/24 07:51 Temperature 36.5 C 03/31/24 07:51 Temperature Source Oral 03/31/24 07:51 Pulse 50 L 03/31/24 09:01 Pulse 63 03/31/24 09:01 Respiratory Rate 15 03/31/24 09:01 Respiratory Effort Normal, Non-Labored 03/31/24 08:10 Respiratory Depth Normal 03/31/24 08:10 Respiratory Pattern Normal 03/31/24 08:10 Blood Pressure 148/69 H 03/31/24 09:01 Blood Pressure Mean 94 03/31/24 09:01 Blood Pressure Position Supine 03/31/24 07:51 Pulse Oximetry 98 03/31/24 07:51 Oxygen Delivery Method Room Air 03/31/24 07:51 Oxygen Flow Rate 0 03/31/24 07:51 Pain Level 0 03/31/24 07:51 Lab/Test Results Lab/Test Results: Laboratory Tests Range/Units 03/31/24 08:00 WBC (4.4-10.8) 10^3/uL 7.14 RBC (4.36-5.78) 10^6/uL 4.81 Hgb (13.5-17.5) g/dL 16.0 Hct (40.0-50.0) % 47.8 MCV (80-95) fL 99 H MCH (27.0-33.0) pg 33.3 H MCHC (32.0-36.0) % 33.5 RDW (11.8-14.1) % 12.7 Plt Count (130-400) 10^3/uL 211 MPV (8.0-11.0) fL 9.3 Immature Gran % % 0.1 Neutrophils % % 52.1 Lymphocytes % % 32.4 Monocytes % % 9.5 Eosinophils % % 5.3 Basophils % % 0.6 Nucleated RBC % (0.0-0.3) % 0.0 Absolute Neutrophils (1.2-6.7) 10^3/uL 3.72 Absolute Lymphocytes (1.2-3.4) 10^3/uL 2.31 Absolute Monocytes (0.1-0.8) 10^3/uL 0.68 Absolute Eosinophils (0.0-0.7) 10^3/uL 0.38 Absolute Basophils (0.0-0.2) 10^3/uL 0.04 APTT (23.6-32.8) sec 25.8 Sodium (136-145) mmol/L 141 Potassium (3.5-5.1) mmol/L 4.5 Chloride (98-107) mmol/L 103 Carbon Dioxide (21.0-32.0) mmol/L 28.8 Anion Gap (3-11) mmol/L 9.2 BUN (7-18) mg/dL 20 H Creatinine (0.70-1.30) mg/dL 1.1 Est GFR (CKD-EPI 2020) (mL/min/1.73m2) 70.01 Glucose (74-106) mg/dL 105 Calcium (8.5-10.1) mg/dL 8.8 Magnesium (1.8-2.4) mg/dL 2.1 Total Bilirubin (0.2-1.0) mg/dL 0.9 AST (15-37) U/L 19 ALT (16-63) U/L 37 Alkaline Phosphatase (46-116) U/L 70 Troponin I (< or =60) ng/L < 50 Total Protein (6.4-8.2) g/dL 7.7 Albumin (3.4-5.0) g/dL 3.6 Medical Decision Making 910?- 73-year-old male with multiple medical problems including history of ASCVD, status post remote CABG and subsequent stenting, CVA, cognitive impairment with short-term memory loss, hypertension, hyperlipidemia, here with left shoulder pain that woke him in the [facility], radiated into his left neck. Pain no longer present. EKG was reviewed and interpreted by me: Please report, sinus rhythm 63 bpm, ventricular trigeminy, borderline ST elevation noted leads V1 and V2. Does not meet STEMI criteria. -- Initial troponin negative. --Chest x-ray was reviewed and interpreted by radiology: Enlarged cardiac silhouette --Delta troponin negative. Repeat EKG was reviewed and interpreted by me: Patient's been observed in the emergency department for greater than 3 hours and has had no arrhythmia noted. He states he is feeling well and is requesting discharge home. We discussed results and potential treatment options. Patient and prefers discharge and understands importance of timely outpatient follow-up. Disposition decision was made weighing the risks and benefits of hospitalization versus outpatient treatment, the risk for further decompensation, and the patient's wishes. The patient was stable and requested discharge. Prior to discharge, my usual and customary return precautions were reviewed with the patient - this included follow-up instructions and reason to return to the emergency department if condition worsens, does not improve as expected, or other new concerns arise. Quality:SDOH Health Related Social Needs: No Data to Display PFSH All Active Problems (Updated 03/31/24 @ 11:59 by Giorgio Law MD) Acute pain of left shoulder (Acute) ASCVD (arteriosclerotic cardiovascular disease) (Chronic) MS 1987 s/p CABG x 3 in 2002 and SYED to left circumflex artery in 2013. 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 Essential hypertension (Chronic) Hyperlipidemia (Chronic) Psoriasis (Chronic) Prediabetes (Chronic) Sensorineural hearing loss, bilateral (Chronic) Bilateral hearing aids Diverticulosis of colon (Chronic) Medical History Tubular adenoma of colon /2015 CVA (cerebral vascular accident) (~10/2022) And 1997 Myocardial infarction (~1987) Herpes zoster Smoker Transient ischemic attack Surgical History S/P coronary artery stent placement (~2013) SYED to LCX Status post appendectomy Status post three vessel coronary artery bypass (~2002) Status post tonsillectomy Status post vasectomy Family History Mother , age 67 Breast cancer Lung cancer Brain cancer Father , age 69 Diabetes Alcohol abuse Heart disease Stroke Paternal Grandfather Hypertensive disorder, systemic arterial Heart disease Paternal Grandmother Hypertensive disorder, systemic arterial Maternal Grandmother Diabetes Social History Smoking/Tobacco Use Status: Former Tobacco Use tobacco type: cigarettes Tobacco: How many years used: 5 Second Hand Exposure: Yes Smoking risk assessment performed?: Yes Alcohol Intake: current Alcohol Intake frequency: a few times a week Alcohol type: beer and hard liquor Drug use: Never Substance use type: does not use Adopted: No Caregiver/Support person: No Foster care: No Household members: spouse Housing: house Number of Children: 2 number of grandchildren: 4 Communication Needs: None Education Level: high school Do you need help understanding health information?: Rarely current occupation: Retired Pets and animals: No Sexually active: Yes Do you think of yourself as: straight/heterosexual Current gender identity: male What is your relationship status?: How often do you talk on the phone with friends or family?: three or more times per week How often do you get together with friends or relatives?: three or more times per week How often do you attend mormonism or roman catholic services?: decline to answer Do you belong to any clubs or organized social groups?: decline to answer Panel score (0-1 are the most socially isolated patients): 2 What type of physical activity do you participate in: walking Duration: 15-30 minutes/day Frequency: daily Adrianna/Yazdanism: Orthodoxy Special adrianna needs: No Agree to transfusion: Yes Seatbelt use: always Helmet use: Yes Helmet use: always Drive intox or ride w/intox commercial truck driver: No Working smoke detector in home: Yes Carbon monox detector in home: Yes Firearms in home: Yes Firearms unloaded and locked: No Do you feel safe at home: Yes Do you feel safe in your relationship?: Yes Victim of physical abuse: No Victim of emotional abuse: No Victim of sexual abuse: No Would you like helpful sources: No PAWSS Have you Been Recently Intoxicated or Drunk Within the Last 30 days?: Yes Have you Ever Experienced Previous Episodes of Alcohol Withdrawal?: No Have you ever Experienced Withdrawal Seizures?: No Have you ever Experienced Delirium Tremens(DT)s?: No Have you ever undergone Alcohol Rehabilitation Treatment (i.e, inpt ot outpatient treatment programs)?: No Have you ever Experienced Blackouts?: No Have you ever Combined Alcohol with other Downers within the last 90 days?: No Have you ever Combined Alcohol with any other Substance of Abuse during the last 90 days?: No Positive Blood Alcohol level on Presentation? [PCS.BAL]: No Evidence of Increased Autonomic Activity (i.e. HR>120, tremor, sweating, agitation, nausea)?: No Result: 1
[2024-03-31 11:40] LABS: Troponin I < 50 ng/L (< or =60)
--- NOTE | 2024-03-31 11:45 | RT.EKG_ITS ---
APPROVED REPORT Exam: Resting ECG Reason for Exam: repeat for shoulder pain Patient Location: E HR:56 bpm ECG Measurements Heart Rate 56 AXIS NH 228 P -15 QRSd 95 QRS 50 QT 364 T -32 QTc 353 Conclusion Sinus rhythm...normal P axis, V-rate 60- 99 Ventricular trigeminy...trigeminy string>6 w/ V complexes Prolonged NH interval...NH >220, V-rate 50- 90 Nonspecific T abnormalities, inferior leads...T <-0.10mV, II III aVF
== END 2024-03-31 12:13 | disposition home or self-care (01) ==
PROVIDERS: Emergency Provider Student in an Organized Health Care Education/Training Program; PCP Nurse Practitioner Family
DX: M25.512 Pain in left shoulder (principal); I10 Essential (primary) hypertension; E78.5 Hyperlipidemia, unspecified; I25.2 Old myocardial infarction; Z95.1 Presence of aortocoronary bypass graft; Z95.5 Presence of coronary angioplasty implant and graft; Z79.02 Long term (current) use of antithrombotics/antiplatelets; Z87.891 Personal history of nicotine dependence; Z79.82 Long term (current) use of aspirin
CPT/HCPCS: 36415; 80053; 93005; 99284; 71045; 83735; 84484; 85025; 85730; 93010

== ENCOUNTER 2024-04-20 08:08 | Emergency (ER) | payer MEDICARE, SELFPAY ==
[2024-04-20] VITALS (60 sets, daily range): BP systolic 123–153; BP diastolic 57–82; PULSE 48–101; RESP 11–26; O2SAT 96–100
--- NOTE | 2024-04-20 08:00 | RT.EKG_ITS ---
APPROVED REPORT Exam: Resting ECG Reason for Exam: Chest pain Patient Location: E HR:82 bpm ECG Measurements Heart Rate 82 AXIS CO 76 P 0 QRSd 102 QRS 23 QT 381 T -27 QTc 447 Conclusion Sinus rhythm...normal P axis, V-rate 60- 99 Ventricular bigeminy...bigeminy string>4 w/ V complexes Normal sinus rhythm at a rate of 82 with ventricular bigeminy. Interventricular conduction delay. P R and QTc within normal limits. ST segment elevation in 3 and aVF. Left lateral chest wall ST segme nt depressions extending out into lead I and aVL appear slightly more pronounced compared to prior da chad earlier this month. Not meeting occlusion ID criteria.
--- NOTE | 2024-04-20 08:17 | W.ED.GENAD ---
Discharge Plan Disposition Patient Disposition: Transfer-Acute Inpatient Care Specific Acute Inpt Facility: [facility] Condition: Stable Discharge Details Clinical Impression: Non-ST elevation [place] (NSTEMI) Primary Care Provider: Syeda Singh ED Provider: Surinder Haddad Home Meds and New Rx's Prescriptions: No Action loratadine [Allergy Relief (loratadine)] 10 mg tablet 10 mg PO DAILY magnesium chloride [Mag 64] 64 mg tablet,delayed release (DR/EC) 128 mg PO DAILY Qty: 180 4RF aspirin 81 mg tablet,delayed release (DR/EC) 81 mg PO DAILY atorvastatin 80 mg tablet 80 mg PO DAILY wunuykrlbmi-dvhibajwd-cop C-Mn 1 EACH tablet 1 ea PO BID cinnamon bark (bulk) 1 GM powder 1 tsp PO DAILY Rx Instructions: MIXES WITH 1 TBSPN HONEY multivitamin [Daily Vitamin] 1 EACH tablet 1 tab PO DAILY triamterene-hydrochlorothiazid 37.5-25 mg tablet 0.5 tab PO DAILY Qty: 45 3RF clopidogrel [Plavix] 75 mg tablet 75 mg PO DAILY Qty: 90 3RF celecoxib [Celebrex] 200 mg capsule 200 mg PO DAILY PRN (Reason: pain) Qty: 90 3RF nitroglycerin 0.4 mg tablet, sublingual 0.4 mg sublingual Q5-15M PRN (Reason: chest pain) Qty: 25 3RF Rx Instructions: 1 tablet every 5 minutes x 3 doses if needed for chest pain. Seek emergency services if not improving after first dose metoprolol succinate 50 mg tablet extended release 24 hr 50 mg PO DAILY Qty: 90 3RF honey flavor (bulk) 120 ML liquid 1 tsp PO QAM HPI General Date/Time Provider Initiated Documentation: 04/20/24 08:17. HPI Narrative: 73 year-old male presents to ED today by POV/ambulating with a chief complaint of chest pain with onset around 0500 this morning upon awakening. Patient has extensive cardiac history with stents. Quality described as left sided discomfort currently- looks as though he is in significant pain, no radiation to fever, recent illness, endorses lightheadedness and shortness of breath, denies diaphoresis at onset, denies slurred speech, severe headache, weakness. Severity is described as severe at onset, mild currently. Palliating factors include took 81mg ASA this morning, and on SL nitro with some relief of pain. Provoking factors include nothing specific, no exertion prior to onset. Events leading up to the incident/Associated Symptoms: CABG x3, stents, history of CVA. Patient not anticoagulated. Related Data Home Medications Medication Instructions Recorded Confirmed bgmoqclkcjv-qohddntcg-ofu C-Mn 750 1 ea PO BID 04/04/13 04/20/24 mg-600 mg-55 mg-5 mg tablet cinnamon bark (bulk) 1 tsp PO DAILY 07/31/13 04/20/24 multivitamin (Daily Vitamin tablet) 1 tab PO DAILY 07/30/14 04/20/24 honey flavor (bulk) 1 tsp PO QAM 07/13/15 04/20/24 loratadine 10 mg tablet (Allergy 10 mg PO DAILY 10/09/19 04/20/24 Relief (loratadine)) magnesium chloride 64 mg 128 mg (2 x 64 mg) PO DAILY #180 10/13/20 04/20/24 (magnesium chloride) tabs tablet,delayed release (Mag 64) aspirin 81 mg tablet,delayed 81 mg PO DAILY 01/31/23 04/20/24 release celecoxib 200 mg capsule (Celebrex) 200 mg PO DAILY PRN pain #90 caps 05/04/23 04/20/24 clopidogrel 75 mg tablet (Plavix) 75 mg PO DAILY #90 tab-caps 05/04/23 04/20/24 nitroglycerin 0.4 mg sublingual 0.4 mg sublingual Q5-15M PRN chest 05/04/23 04/20/24 tablet pain #25 tabs triamterene 37.5 0.5 tab PO DAILY #45 tabs 05/04/23 04/20/24 mg-hydrochlorothiazide 25 mg tablet metoprolol succinate 50 mg 50 mg PO DAILY #90 tabs 11/25/23 04/20/24 tablet,extended release 24 hr atorvastatin 80 mg tablet 80 mg PO DAILY 02/13/24 04/20/24 Previous Rx's Medication Instructions Recorded magnesium chloride 64 mg 128 mg (2 x 64 mg) PO DAILY #180 10/13/20 (magnesium chloride) tabs tablet,delayed release (Mag 64) celecoxib 200 mg capsule (Celebrex) 200 mg PO DAILY PRN pain #90 caps 05/04/23 clopidogrel 75 mg tablet (Plavix) 75 mg PO DAILY #90 tab-caps 05/04/23 nitroglycerin 0.4 mg sublingual 0.4 mg sublingual Q5-15M PRN chest 05/04/23 tablet pain #25 tabs triamterene 37.5 0.5 tab PO DAILY #45 tabs 05/04/23 mg-hydrochlorothiazide 25 mg tablet metoprolol succinate 50 mg 50 mg PO DAILY #90 tabs 11/25/23 tablet,extended release 24 hr Allergies Allergy/AdvReac Type Severity Reaction Status Date / Time Tetanus Vaccines and Toxoid Allergy Unknown LARGE Verified 04/20/24 08:18 [Tetanus Vaccines \T\ Toxoid] LOCAL REACTION oxycodone AdvReac Intermediate HALLUCINATI Verified 04/20/24 08:18 ONS ezetimibe AdvReac INTOLERANT Verified 04/20/24 08:18 CAT HAIR Allergy Mild Wheezing Uncoded 04/20/24 08:18 DUST Allergy Unknown Wheezing Uncoded 04/20/24 08:18 POLLEN EXTRACTS Allergy Unknown Wheezing Uncoded 04/20/24 08:18 General Stated Complaint: Chest Pain HUONG: 2 Review of Systems All systems reviewed & are unremarkable except as noted in HPI and below Exam Narrative Exam Narrative: GENERAL APPEARANCE: Well-nourished, non-toxic, awake and alert, atraumatic, no acute distress. SKIN: Warm, pink, dry, intact, without rashes/lesions/ulcerations. HEAD: Normocephalic, atraumatic, normal hair distribution for gender/age. EYES: Normal conjunctiva, no exudates on lids/lashes. ENT: Nares patent, no circumoral cyanosis, no facial swelling NECK: Supple, trachea midline, painless cervical ROM. LUNGS/CHEST: Lungs CTA bilaterally- no rhonchi/rales/wheezes diffusely, non-labored respirations, normal A/P diameter, symmetrical expansion, no chest wall deformity HEART (CV/PV): Regular rate and rhythm without murmur, no carotid bruit, no peripheral edema, no JVD. ABDOMEN: Soft, non-distended, no guarding, no tenderness. MSK: Normal ROM, no swelling/deformity to bilateral UEs or LEs, moving all extremities without weakness, no cyanosis, spine midline without tenderness, normal curvature. NEURO: Mental Status AAOx4 - alert to person, place, time, events No facial droop, no forehead involvement. Motor: No focal weakness - strength 5/5 in bilateral UEs and LEs, proximal and distal, symmetric. Sensory: sensation intact to light touch globally. Gait normal: patient ambulated without ataxia into ED room. PSYCH: euthymic, cooperative, pleasant, appropriate speech Course Vital Signs Vital signs: Vital Signs Pulse 86 04/20/24 08:14 Respiratory Rate 14 04/20/24 08:14 Blood Pressure 146/82 H 04/20/24 08:14 Pulse Oximetry 98 04/20/24 08:14 Temperature Source Temporal Artery Scan 04/20/24 08:14 Pulse 86 04/20/24 08:14 Respiratory Rate 14 04/20/24 08:14 Blood Pressure 146/82 H 04/20/24 08:14 Blood Pressure Position Sitting 04/20/24 08:14 Pulse Oximetry 98 04/20/24 08:14 Oxygen Delivery Method Room Air 04/20/24 08:14 Oxygen Flow Rate 0 04/20/24 08:14 Pain Level 5 04/20/24 08:14 Medical Decision Making This dictation utilizes [id number] dictation software and may contain unedited grammatical errors. 73 year-old male presents to ED today by POV/ambulating with a chief complaint of chest pain with onset around 0500 this morning upon awakening. Patient has extensive cardiac history with stents. Quality described as left sided discomfort currently- looks as though he is in significant pain, no radiation to fever, recent illness, endorses lightheadedness and shortness of breath, denies diaphoresis at onset, denies slurred speech, severe headache, weakness. Severity is described as severe at onset, mild currently. Palliating factors include took 81mg ASA this morning, and on SL nitro with some relief of pain. Provoking factors include nothing specific, no exertion prior to onset. Events leading up to the incident/Associated Symptoms: CABG x3, stents, history of CVA. Patients' medical history: History of CVA-1997 and 2022, myocardial infarction, TIA, status post coronary artery stent placement in 2013, CABG X 12/2002, hyperlipidemia, prediabetes. Family and social history: lives independently with , eats well, exercises. Pertinent exam findings / vital signs include no JVD or profound heart murmur, neuro intact, benign abdomen, lungs CTA. Differential / pathologies of concern include ACS, less likely PE, not stroke. Diagnostic studies of: -CBC, CMP, Lipase, Serial Trop I, EKG, CXR. -CBC benign -CMP benign -Lipase wnl -Initial trop 58, had prior <50- will likely go up -1hr repeat troponin is 98 -3hr trop 132 -EKG shows sinus rhythm at 82 bpm with ventricular bigeminy, ST segment elevation in lead III and aVF, some ST depression in 1 and aVL, V4, dynamic change since most recent EKG earlier this month -R sided EKG shows NSR -77 bpm with persistent inferior ST segment elevation in lead III more pronounced compared to priors, mild ST depression in lead I and aVL -CXR shows no acute abnormality Interventions of: -243 ASA given, nitro PRN, morphine PRN -Consult [facility] for slightly bumped trop, EKG changes, convincing story. Accepted for transfer by [facility] - Dr. Pleitez as accepting at 0924. Recommend repeat 1hr stat trop, R sided EKG, start heparin ACS protocol ED Course/Assessment/Plan: 73-year-old male presents with chest pain onset at rest upon awakening this morning, has extensive cardiac history with stents, CABG X3 many years ago. Appears in significant distress with some EKG changes showing new ST depressions and mild ST segment elevation in lead III and aVF, he was accepted to [facility] at 09 24. Awaiting bed, patient is currently pain-free. Initial troponins are rising indicating patient is likely having NSTEMI, no other acute lab abnormalities, no abnormality on chest x-ray. Provided 243 ASA, nitro/morphine PRN, and patient is on heparin. -6hr trop pending at shift-change. Patient signed out to Brandie Garcia NP with admission accepted to [facility] [facility], bed has been assigned. Findings not consistent with STEMI, hypoxic respiratory failure, cardiac arrest. Disposition of Non-ST Elevation [place] (NSTEMI). Patient verbalized understanding of the plan and return to ED criteria and engaged in shared decision making. Medical Records Medical records reviewed: Yes I reviewed the patient's medical records. Imaging Data Radiologic Study: Attestation: I personally reviewed and interpreted this imaging study as follows: Imaging: X-Ray Radiologist's impression: EXAM: XR PORTABLE CHEST AP CLINICAL HISTORY: chest pain TECHNIQUE: 2D digital imaging was performed of the chest. One image was obtained. An AP view was obtained. COMPARISON: CR,XR XR PORTABLE CHEST AP from 03/31/2024 FINDINGS: MEDIASTINUM: Normal. HEART: Cardiomegaly. Status post CABG. PULMONARY VASCULATURE: Normal. LUNGS: Clear. PLEURAL SPACE: No pleural effusion or pneumothorax. BONE:Within normal limits for the patient's age. OTHER FINDINGS:Normal. IMPRESSION: No acute pulmonary findings. Lab Data Lab results reviewed: Yes I reviewed the patient's lab results. Labs: Laboratory Tests Range/Units 04/20/24 04/20/24 04/20/24 08:19 08:24 09:30 WBC (4.4-10.8) 10^3/uL 7.36 RBC (4.36-5.78) 10^6/uL 4.51 Hgb (13.5-17.5) g/dL 15.1 Hct (40.0-50.0) % 44.6 MCV (80-95) fL 99 H MCH (27.0-33.0) pg 33.5 H MCHC (32.0-36.0) % 33.9 RDW (11.8-14.1) % 13.1 Plt Count (130-400) 10^3/uL 236 MPV (8.0-11.0) fL 9.9 Immature Gran % % 0.3 Neutrophils % % 53.1 Lymphocytes % % 32.5 Monocytes % % 8.6 Eosinophils % % 5.0 Basophils % % 0.5 Nucleated RBC % (0.0-0.3) % 0.0 Absolute Neutrophils (1.2-6.7) 10^3/uL 3.91 Absolute Lymphocytes (1.2-3.4) 10^3/uL 2.39 Absolute Monocytes (0.1-0.8) 10^3/uL 0.63 Absolute Eosinophils (0.0-0.7) 10^3/uL 0.37 Absolute Basophils (0.0-0.2) 10^3/uL 0.04 PT (9.1-11.1) sec 11.7 H INR (0.9-1.1) 1.2 H APTT (23.6-32.8) sec 26.1 Sodium (136-145) mmol/L 139 Potassium (3.5-5.1) mmol/L 4.1 Chloride (98-107) mmol/L 103 Carbon Dioxide (21.0-32.0) mmol/L 28.0 Anion Gap (3-11) mmol/L 8.0 BUN (7-18) mg/dL 30 H Creatinine (0.70-1.30) mg/dL 1.1 Est GFR (CKD-EPI 2020) (mL/min/1.73m2) 70.01 Glucose (74-106) mg/dL 109 H Calcium (8.5-10.1) mg/dL 8.6 Total Bilirubin (0.2-1.0) mg/dL 0.92 AST (15-37) U/L 23 ALT (16-63) U/L 41 Alkaline Phosphatase (46-116) U/L 71 Troponin I (< or =60) ng/L 58 98 H* Total Protein (6.4-8.2) g/dL 7.8 Albumin (3.4-5.0) g/dL 3.7 Lipase Cancelled 52 Range/Units 04/20/24 11:25 WBC (4.4-10.8) 10^3/uL RBC (4.36-5.78) 10^6/uL Hgb (13.5-17.5) g/dL Hct (40.0-50.0) % MCV (80-95) fL MCH (27.0-33.0) pg MCHC (32.0-36.0) % RDW (11.8-14.1) % Plt Count (130-400) 10^3/uL MPV (8.0-11.0) fL Immature Gran % % Neutrophils % % Lymphocytes % % Monocytes % % Eosinophils % % Basophils % % Nucleated RBC % (0.0-0.3) % Absolute Neutrophils (1.2-6.7) 10^3/uL Absolute Lymphocytes (1.2-3.4) 10^3/uL Absolute Monocytes (0.1-0.8) 10^3/uL Absolute Eosinophils (0.0-0.7) 10^3/uL Absolute Basophils (0.0-0.2) 10^3/uL PT (9.1-11.1) sec INR (0.9-1.1) APTT (23.6-32.8) sec Sodium (136-145) mmol/L Potassium (3.5-5.1) mmol/L Chloride (98-107) mmol/L Carbon Dioxide (21.0-32.0) mmol/L Anion Gap (3-11) mmol/L BUN (7-18) mg/dL Creatinine (0.70-1.30) mg/dL Est GFR (CKD-EPI 2020) (mL/min/1.73m2) Glucose (74-106) mg/dL Calcium (8.5-10.1) mg/dL Total Bilirubin (0.2-1.0) mg/dL AST (15-37) U/L ALT (16-63) U/L Alkaline Phosphatase (46-116) U/L Troponin I (< or =60) ng/L 132 H* Total Protein (6.4-8.2) g/dL Albumin (3.4-5.0) g/dL Lipase Quality:SDOH Health Related Social Needs: No Data to Display PFSH All Active Problems (Updated 04/20/24 @ 12:24 by AMADO Carrington) Non-ST elevation [place] (NSTEMI) (Acute) Acute pain of left shoulder (Acute) ASCVD (arteriosclerotic cardiovascular disease) (Chronic) [place] 1987 s/p CABG x 3 in 2002 and SYED to left circumflex artery in 2013. 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 Essential hypertension (Chronic) Hyperlipidemia (Chronic) Psoriasis (Chronic) Prediabetes (Chronic) Sensorineural hearing loss, bilateral (Chronic) Bilateral hearing aids Diverticulosis of colon (Chronic) Medical History Tubular adenoma of colon 2008/2012/2015 CVA (cerebral vascular accident) (~10/2022) And 1997 Myocardial infarction (~1987) Herpes zoster Smoker Transient ischemic attack Surgical History S/P coronary artery stent placement (~2013) SYED to LCX Status post appendectomy Status post three vessel coronary artery bypass (~2002) Status post tonsillectomy Status post vasectomy Family History Mother , age 67 Breast cancer Lung cancer Brain cancer Father , age 69 Diabetes Alcohol abuse Heart disease Stroke Paternal Grandfather Hypertensive disorder, systemic arterial Heart disease Paternal Grandmother Hypertensive disorder, systemic arterial Maternal Grandmother Diabetes Social History Smoking/Tobacco Use Status: Former Tobacco Use tobacco type: cigarettes Tobacco: How many years used: 5 Second Hand Exposure: Yes Smoking risk assessment performed?: Yes Alcohol Intake: current Alcohol Intake frequency: a few times a week Alcohol type: beer and hard liquor Drug use: Never Substance use type: does not use Adopted: No Caregiver/Support person: No Foster care: No Household members: spouse Housing: house Number of Children: 2 number of grandchildren: 4 Communication Needs: None Education Level: high school Do you need help understanding health information?: Rarely current occupation: Retired Pets and animals: No Sexually active: Yes Do you think of yourself as: straight/heterosexual Current gender identity: male What is your relationship status?: How often do you talk on the phone with friends or family?: three or more times per week How often do you get together with friends or relatives?: three or more times per week How often do you attend restoration or christian services?: decline to answer Do you belong to any clubs or organized social groups?: decline to answer Panel score (0-1 are the most socially isolated patients): 2 What type of physical activity do you participate in: walking Duration: 15-30 minutes/day Frequency: daily Adrianna/Zoroastrianism: Uatsdin Special adrianna needs: No Agree to transfusion: Yes Seatbelt use: always Helmet use: Yes Helmet use: always Drive intox or ride w/intox 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 Stable throughout ED visit, do not expect any interventions will be required Last updated by Surinder Haddad PA at 04/20/24 15:14
[2024-04-20] MEDS: Aspirin 81 MG CHEW 243 MG CH (08:32)
[2024-04-20 08:41] LABS: Abs Immature Grans 0.02 10^3/uL (0.0-0.06); Absolute Basophil Count 0.04 10^3/uL (0.0-0.2); Absolute Eosinophil Count 0.37 10^3/uL (0.0-0.7); Absolute Lymphocyte Count 2.39 10^3/uL (1.2-3.4); Absolute Monocyte Count 0.63 10^3/uL (0.1-0.8); Absolute Neutrophil Count 3.91 10^3/uL (1.2-6.7); Basophils % 0.5 %; HCT 44.6 % (40.0-50.0); HGB 15.1 g/dL (13.5-17.5); Immature Grans % 0.3 %; Lymphocytes % 32.5 %; MCH 33.5 pg (27.0-33.0); MCHC 33.9 % (32.0-36.0); MCV 99 fL (80-95); MPV 9.9 fL (8.0-11.0); Monocytes % 8.6 %; Neutrophils % 53.1 %; Platelet Count 236 10^3/uL (130-400); RBC 4.51 10^6/uL (4.36-5.78); RDW 13.1 % (11.8-14.1); RDW-SD 47.1 fL; WBC 7.36 10^3/uL (4.4-10.8)
--- NOTE | 2024-04-20 08:48 | DI.RAD_ITS ---
Exam(s) XR PORTABLE CHEST AP EXAM: XR PORTABLE CHEST AP CLINICAL HISTORY: chest pain TECHNIQUE: 2D digital imaging was performed of the chest. One image was obtained. An AP view was ob tained. COMPARISON: CR,XR XR PORTABLE CHEST AP from 03/31/2024 FINDINGS: MEDIASTINUM: Normal. HEART: Cardiomegaly. Status post CABG. PULMONARY VASCULATURE: Normal. LUNGS: Clear. PLEURAL SPACE: No pleural effusion or pneumothorax. BONE:Within normal limits for the patient's age. OTHER FINDINGS:Normal. IMPRESSION: No acute pulmonary findings. DATA REPOSITORY: RADIATION DOSE DELIVERED:
[2024-04-20 08:49] LABS: INR 1.2 (0.9-1.1); PTT Activated 26.1 sec (23.6-32.8); Prothrombin Time 11.7 sec (9.1-11.1)
[2024-04-20 08:54] LABS: ALT 41 U/L (16-63); AST 23 U/L (15-37); Albumin 3.7 g/dL (3.4-5.0); Alkaline Phosphatase 71 U/L (46-116); BUN 30 mg/dL (7-18); Bilirubin, Total 0.92 mg/dL (0.2-1.0); CREATININE 1.1 mg/dL (0.70-1.30); Calcium 8.6 mg/dL (8.5-10.1); Chloride 103 mmol/L (98-107); Estimated GFR 70.01 (mL/min/1.73m2); Glucose 109 mg/dL (74-106); Lipase 52 U/L (16-77); Potassium 4.1 mmol/L (3.5-5.1); Sodium 139 mmol/L (136-145); Total Protein 7.8 g/dL (6.4-8.2); Troponin I 58 ng/L (< or =60)
--- NOTE | 2024-04-20 09:15 | RT.EKG_ITS ---
APPROVED REPORT Exam: Resting ECG Reason for Exam: R sided EKG; chest pain Patient Location: E HR:77 bpm ECG Measurements Heart Rate 77 AXIS OK 206 P -49 QRSd 99 QRS 24 QT 380 T -12 QTc 379 Conclusion Sinus rhythm...normal P axis, V-rate 60- 99 Multiple ventricular premature complexes...V complexes w/ short R-R intervls Anterolateral infarct, age indeterminate...Q >35mS, flat/neg T, V3-V6,I,aVL Right-sided ECG showing normal sinus rhythm at a rate of 77. Persistent inferior ST segment elevatio n in lead III. No significant ST segment elevations also. Mild ST segment depression in lead I and aVL. Prolonged OK with first-degree block at a rate of 206 ms. QTc within normal limits.
[2024-04-20] MEDS: Heparin in 0.45% NaCl 25,000 UNIT/250 ML BAG 8.5 UNIT IV (09:51)
[2024-04-20 09:56] LABS: Troponin I 98 ng/L (< or =60)
[2024-04-20 11:52] LABS: Troponin I 132 ng/L (< or =60)
[2024-04-20 15:32] LABS: Troponin I 251 ng/L (< or =60)
--- NOTE | 2024-04-20 15:40 | W.EDPROG ---
Date of service: 04/20/24 Time of Service: 15:30 Medical Decision Making Handoff report received from Surinder Haddad, candelario ASIYA. Please see his note for full HPI/ROS and physical exam. Pan is a 73-year-old male presents to the emergency department today for evaluation of chest pain, diagnosed with NSTEMI. Initial troponin 58, followed by repeat of 98, 132, then 251. EKG reassuring, notable for multiple PVCs, heart rate 77. Persistent inferior ST segment elevation 3, mild ST segment depression in lead I and aVL. While in the emergency department 243 aspirin given, with nitro and morphine as needed. [place] [facility]. 1600: I did check in to see patient before he was [place] [facility] Resting comfortably with at bedside, denies chest pain, shortness of breath, lightheadedness at this time; heparin is running per protocol. 1645: Pan reports mild L sided headache, no associated dizziness, vision changes, weakness, obvious neurodeficits concerning for spontaneous intracranial hemorrhage or other serious etiology at this time. Patient is alert and oriented, clear speech. Tylenol given. Quality:[facility] Health Related Social Needs: No Data to Display Sign Out Sign Out Data: Sign Out Comment: Patient awaiting transfer for NSTEMI, SYLVIAEX @ 1615. Stable throughout ED visit, do not expect any interventions will be required Last updated by Surinder Haddad PA at 04/20/24 15:14 Discharge Plan Disposition Patient Disposition: Transfer-Acute Inpatient Care Specific Acute Inpt Facility: [facility] Condition: Stable Discharge Details Clinical Impression: Non-ST elevation [place] (NSTEMI) Primary Care Provider: Syeda Singh ED Provider: Brandie Leroy Home Meds and New Rx's Prescriptions: No Action loratadine [Allergy Relief (loratadine)] 10 mg tablet 10 mg PO DAILY magnesium chloride [Mag 64] 64 mg tablet,delayed release (DR/EC) 128 mg PO DAILY Qty: 180 4RF aspirin 81 mg tablet,delayed release (DR/EC) 81 mg PO DAILY atorvastatin 80 mg tablet 80 mg PO DAILY elmkhwvhnid-szoplmgbl-vhb C-Mn 1 EACH tablet 1 ea PO BID cinnamon bark (bulk) 1 GM powder 1 tsp PO DAILY Rx Instructions: MIXES WITH 1 TBSPN HONEY multivitamin [Daily Vitamin] 1 EACH tablet 1 tab PO DAILY triamterene-hydrochlorothiazid 37.5-25 mg tablet 0.5 tab PO DAILY Qty: 45 3RF clopidogrel [Plavix] 75 mg tablet 75 mg PO DAILY Qty: 90 3RF celecoxib [Celebrex] 200 mg capsule 200 mg PO DAILY PRN (Reason: pain) Qty: 90 3RF nitroglycerin 0.4 mg tablet, sublingual 0.4 mg sublingual Q5-15M PRN (Reason: chest pain) Qty: 25 3RF Rx Instructions: 1 tablet every 5 minutes x 3 doses if needed for chest pain. Seek emergency services if not improving after first dose metoprolol succinate 50 mg tablet extended release 24 hr 50 mg PO DAILY Qty: 90 3RF honey flavor (bulk) 120 ML liquid 1 tsp PO QAM
[2024-04-20] MEDS: Acetaminophen 325 MG TAB 650 MG PO (16:58)
== END 2024-04-20 17:03 | disposition short-term general hospital (02) ==
PROVIDERS: Physician Assistant; Emergency Provider Nurse Practitioner Family; PCP Nurse Practitioner Family
DX: R07.9 Chest pain, unspecified (principal); I21.4 Non-ST elevation (NSTEMI) myocardial infarction; I25.10 Atherosclerotic heart disease of native coronary artery without angina pectoris; Z95.5 Presence of coronary angioplasty implant and graft; Z95.1 Presence of aortocoronary bypass graft; Z86.73 Personal history of transient ischemic attack (TIA), and cerebral infarction without residual deficits; I25.2 Old myocardial infarction; E78.5 Hyperlipidemia, unspecified; F17.210 Nicotine dependence, cigarettes, uncomplicated
CPT/HCPCS: 00123; 36415; 80053; 83690; 93005; 96365; 96366; 96375; 99285; 71045; 84484; 85025; 85610; 85730; 93010; J1644

== ENCOUNTER 2024-05-09 13:29 | Outpatient (CLI) | payer MEDICARE, SELFPAY ==
--- NOTE | 2024-05-09 13:15 | RT.EKG_ITS ---
APPROVED REPORT Exam: Resting ECG Reason for Exam: CAD Patient Location: O HR:59 bpm ECG Measurements Heart Rate 59 AXIS FL 197 P -9 QRSd 103 QRS 34 QT 400 T -2 QTc 397 Conclusion Sinus rhythm...normal P axis, V-rate 50- 99 Borderline T abnormalities, inferior leads...T flat/neg, II III aVF
== END 2024-05-09 13:30 | disposition home or self-care (01) ==
LOC: DI.CM 13:29
PROVIDERS: PCP Nurse Practitioner Family; Visit Provider Nurse Practitioner Family
DX: I25.10 Atherosclerotic heart disease of native coronary artery without angina pectoris (principal); I48.91 Unspecified atrial fibrillation; I21.4 Non-ST elevation (NSTEMI) myocardial infarction
CPT/HCPCS: 93010

== ENCOUNTER 2024-05-14 09:38 | Outpatient (CLI) | payer MEDICARE, SELFPAY | END 2024-05-14 09:39 | disposition home or self-care (01) | PROVIDERS: PCP Nurse Practitioner Family; Visit Provider Nurse Practitioner Family | DX: I48.91 Unspecified atrial fibrillation (principal) | CPT/HCPCS: 93246 ==

== ENCOUNTER 2024-05-18 11:01 | Outpatient (RCR) | payer MEDICARE, SELFPAY | END 2024-05-23 23:59 | disposition home or self-care (01) | LOC: CR 11:01 | PROVIDERS: PCP Nurse Practitioner Family; Visit Provider Internal Medicine Cardiovascular Disease | DX: I21.4 Non-ST elevation (NSTEMI) myocardial infarction (principal) | CPT/HCPCS: S9472 ==

== ENCOUNTER 2024-06-05 09:56 | Outpatient (CLI) | payer MEDICARE, SELFPAY ==
--- NOTE | 2024-06-05 15:23 | W.CARDEVENT ---
Date of service: 06/05/24 Time of Service: 15:23 Cardiac Event Recorder Referring Provider:: Syeda Singh Indications:: Atrial fibrillation Cardiac Event Note: This is a cardiac event monitor. Patient was monitored for 7 days 31 minutes Rhythm throughout was sinus with an average heart rate of 81. Minimum was 49, maximum 100 There were rare atrial premature beats. There was no atrial fibrillation There were frequent ventricular ectopic beats. There were several brief runs of nonsustained ventricular tachycardia. These were generally 4-5 beats in duration. There was no high-grade AV block, no pauses greater than 3 seconds
== END 2024-06-05 09:57 | disposition home or self-care (01) ==
LOC: CARDOPNVT 09:56
PROVIDERS: PCP Nurse Practitioner Family; Visit Provider Internal Medicine Cardiovascular Disease
DX: I48.91 Unspecified atrial fibrillation (principal); I49.3 Ventricular premature depolarization
CPT/HCPCS: 93248

== ENCOUNTER 2024-06-15 13:32 | Outpatient (RCR) | payer MEDICARE, SELFPAY | END 2024-06-23 23:59 | disposition home or self-care (01) | LOC: CR 13:32 | PROVIDERS: PCP Nurse Practitioner Family; Visit Provider Internal Medicine Cardiovascular Disease | DX: I21.4 Non-ST elevation (NSTEMI) myocardial infarction (principal); Z51.89 Encounter for other specified aftercare | CPT/HCPCS: S9472 ==

== ENCOUNTER 2024-06-20 10:56 | Inpatient (IN) | payer MEDICARE, SELFPAY ==
[2024-06-20] VITALS (64 sets, daily range): BP systolic 102–161; BP diastolic 39–99; PULSE 58–121; RESP 13–33; TEMP 36.6; O2SAT 92–98
--- NOTE | 2024-06-20 10:45 | RT.EKG_ITS ---
APPROVED REPORT Exam: Resting ECG Reason for Exam: dizziness Patient Location: E HR:66 bpm ECG Measurements Heart Rate 66 AXIS NM 182 P 4 QRSd 98 QRS 25 QT 410 T 48 QTc 417 Conclusion Sinus rhythm...normal P axis, V-rate 60- 99 Multiple ventricular premature complexes...V complexes w/ short R-R intervls Narrow complex normal sinus rhythm at a rate of 66. Normal axis. Intervals within normal limits. M ild new ST segment elevation in aVF. Slightly more pronounced ST segment elevation in lead III. No ST segment depressions. Several PVCs.
--- NOTE | 2024-06-20 11:03 | W.ED.GENAD ---
Discharge Plan Discharge Details Chief Complaint: Nausea/Vomit/Diar Clinical Impression: Myocardial injury, Weakness Primary Care Provider: Syeda Singh ED Provider: Woo Cardoso [place] Meds and New Rx's Prescriptions: No Action loratadine [Allergy Relief (loratadine)] 10 mg tablet 10 mg PO DAILY magnesium chloride [Mag 64] 64 mg tablet,delayed release (DR/EC) 128 mg PO DAILY Qty: 180 4RF aspirin 81 mg tablet,delayed release (DR/EC) 81 mg PO DAILY atorvastatin 80 mg tablet 80 mg PO DAILY triamterene-hydrochlorothiazid 37.5-25 mg tablet 0.5 tab PO DAILY Qty: 45 3RF clopidogrel [Plavix] 75 mg tablet 75 mg PO DAILY Qty: 90 3RF nitroglycerin 0.4 mg tablet, sublingual 0.4 mg sublingual Q5-15M PRN (Reason: chest pain) Qty: 25 3RF Rx Instructions: 1 tablet every 5 minutes x 3 doses if needed for chest pain. Seek emergency services if not improving after first dose apixaban 5 mg tablet 5 mg PO BID Qty: 180 3RF lbzquhlexzp-lozlsvnsu-sjv C-Mn 1 EACH tablet 1 ea PO BID cinnamon bark (bulk) 1 GM powder 1 tsp PO DAILY Rx Instructions: MIXES WITH 1 TBSPN HONEY multivitamin [Daily Vitamin] 1 EACH tablet 1 tab PO DAILY metoprolol succinate 50 mg tablet extended release 24 hr 50 mg PO DAILY Qty: 90 3RF pantoprazole 40 mg tablet,delayed release (DR/EC) 40 mg PO DAILY Rx Instructions: [place] [facility] [place] celecoxib [Celebrex] 200 mg capsule 200 mg PO DAILY PRN (Reason: pain) Qty: 90 3RF honey flavor (bulk) 120 ML liquid 1 tsp PO QAM HPI General Date/Time Provider Initiated Documentation: 06/20/24 11:03. HPI Narrative: MDM Patient overall very well-appearing normothermic and not tachycardic 74-year-old male with significant history of coronary artery disease with decreased energy concerning for the possibility of ACS versus acute electrolyte abnormality for which patient will receive labs and cardiac monitoring. No pain out of proportion to suggest necrotizing soft tissue infection. Patient has had diarrhea but has a soft nontender abdomen so I am not suspicious for intra-abdominal process I do not feel he requires a CT scan of his abdomen. I considered sepsis however the patient was not tachycardic nor febrile and he appears well so I did not order lactate treat empirically with IV antibiotics nor check blood cultures. No dysuria or frequency so doubt UTI. Patient has not been vomiting to suggest increased risk for small bowel obstruction. No chest pain to suggest pneumonia nor ACS. No rash to chest to suggest zoster. Patient is neurologically intact so my suspicion for acute CVA is low so I did not feel that he required an MRI nor a neurology consult. No nystagmus nor dizziness so I did not apply the hints exam as I was not suspicious for posterior circulation CVA. Patient does have a history of cognitive impairment and prior stroke which was likely the cause of his transient confusion several nights ago. I considered acute heart failure however the patient is not volume overloaded so I withheld chest x-ray and diuretics. I did not think that that represented a TIA given that the patient is neurologically intact do not feel he requires hospitalization for TIA workup. Given sick contact and patient's son will complete POC COVID swab and if negative will proceed to PCR. No confusion at the moment to suggest encephalitis. No nuchal rigidity nor fevers to suggest meningitis I do not feel he requires an MRI. No tonic-clonic activity to suggest seizure so I did not feel that he required an EEG. No recent tick bites to suggest a tickborne illness so I diuretics a tick panel. Will provide 250 cc of crystalloid and reassess following labs. 11:51 AM Iewiv-aq-qnlr COVID influenza all negative. CBC shows leukopenia which is new. No anemia. No thrombocytopenia. Patient also has lymphopenia. Will increase sensitivity for COVID with PCR nasal swab. 1 PM COVID influenza RSV PCR all negative. 1:33 PM Patient was making troponin to the level of 133 ng/L. This is slightly lower than his maximal troponin earlier this summer when he was transferred to [facility] He had no SHIRA and normal renal function. I repeated the ECG and his < [address] segment elevation in aVF had improved slightly. Will touch base with cardiology at [facility]. Patient received 324 mg of aspirin. Basic metabolic panel no SHIRA. Mild hyperglycemia but no anion gap and normal bicarbonate??not consistent with DKA. Normal reassuring magnesium. Patient reportedly has been adherent with his home medications per his who he refers to as the boss. 2:15 PM I spoke with Dr. Alatorre from cardiology who will review the patient's EKGs with the cardiology attending. I uploaded an intermediate ECG from April following the patient's inpatient cardiology stay at [facility]. 2:37 PM I spoke with Dr. Alatorre from cardiology at [facility]. He had reviewed the patient's case with the interventional attending who requested an echocardiogram. He advised against heparinization and clopidogrel load. Patient had had an echo performed as an inpatient at [facility] prior to discharge. It showed moderate LV dilatation with an EF of approximately 32% with mild RV dilatation. We do not have an echocardiogram in our system. 3:40 PM Unfortunately an echocardiogram cannot be obtained today. I printed the results off of the [facility] echocardiogram. Given that patient is making troponin and cardiology advised an echocardiogram will elected to keep patient in-house to obtain echocardiogram in the morning and monitor serial troponins. I met with the patient and his and they are amenable to this plan. Chart review at [facility] reveals that pt had a staged with impella support. 3:50 PM Patient having chest pain for which I ordered a repeat ECG. I signed patient out at bedside to Dr. Moran. I ordered a nitro and a repeat troponin. Chronic conditions affecting the care of the patient: Coronary artery disease History obtained from an outside historian: Patient's External record review: [facility] E[place] Diagnostic interpretations performed by me: Per my independent interpretation EKG shows: Narrow complex normal sinus rhythm at a rate of 66. Normal axis. Intervals within normal limits. Mild new ST segment elevation in aVF. Slightly more pronounced ST segment elevation in lead III. No ST segment depressions. Several PVCs. ]Medications: Continue 50 cc crystalloid Social determinants of health affecting disposition: N/A Management discussed with: Dr. Dean gutierrez Treatment/interventions considered: N/A Response to therapies provided: N/A HPI This is a 74-year-old male with history of coronary artery disease status post stenting at [facility] last month prior to the emergency department via private vehicle in setting of decreased energy and had some dizziness this morning. Patient reportedly had a single episode of diarrhea 3 days ago. He has not recently been on any antibiotics. He took a dose of Imodium and his diarrhea resolved. Yesterday he had decreased energy and was confused and reportedly wandering around his house at approximately 5 AM. His noted that he had cold sweats at that point in time. He had decreased p.o. by mouth yesterday. He slept well overnight. This morning he was nauseous and had a small episode of emesis. He was only able to eat a small amount of breakfast. notes that he has a prior history of CVA and has had short-term memory lapses in the past. He has not been confused this morning. He is not dizzy now. He denies abdominal pain chest pain fevers cough and shortness of breath beyond baseline. He does have baseline he gets some shortness of breath when he walks a distance. Exam General: Well-appearing in no acute distress speaking in complete sentences. Head: Normocephalic, atraumatic. Eye:[Pupils equal, round reactive to light.] Extraocular eye movements intact. No conjunctival injection. No scleral icterus. Ear, nose, mouth, throat: Grossly normal inspection. Normal voice, handling secretions normally. Neck: Trachea midline. Cardiovascular: Well-perfused distal extremities. Regular rate and rhythm Respiratory: Nonlabored respiration. Clear lungs bilaterally soft nontender Gastrointestinal: Nondistended abdomen. Musculoskeletal: No significant lower extremity pitting edema. Moving all 4 extremities spontaneously. Skin: Normal for age and race, grossly normal temperature and turgor. No acute rash. Neurologic: Alert and appropriate, no apparent acute deficits. GCS 15. Cranial nerves II through XII intact grossly. 5 out of 5 bilateral upper and lower extremity strength. Psychiatric: Mood and manner are appropriate. Grooming and personal hygiene are appropriate. Related Data Home Medications ?Medication ?Instructions ?Recorded ?Confirmed puvygbbsjeu-vhzlefbzr-szm C-Mn 750 1 ea PO BID 04/04/13 06/20/24 mg-600 mg-55 mg-5 mg tablet cinnamon bark (bulk) 1 tsp PO DAILY 07/31/13 06/20/24 multivitamin (Daily Vitamin tablet) 1 tab PO DAILY 07/30/14 06/20/24 honey flavor (bulk) 1 tsp PO QAM 07/13/15 06/20/24 loratadine 10 mg tablet (Allergy 10 mg PO DAILY 10/09/19 06/20/24 Relief (loratadine)) magnesium chloride 64 mg 128 mg (2 x 64 mg) PO DAILY #180 10/13/20 06/20/24 (magnesium chloride) tabs tablet,delayed release (Mag 64) aspirin 81 mg tablet,delayed 81 mg PO DAILY 01/31/23 06/20/24 release metoprolol succinate 50 mg 50 mg PO DAILY #90 tabs 11/25/23 06/20/24 tablet,extended release 24 hr atorvastatin 80 mg tablet 80 mg PO DAILY 02/13/24 06/20/24 pantoprazole 40 mg tablet,delayed 40 mg PO DAILY 05/03/24 06/20/24 release apixaban 5 mg tablet 5 mg PO BID #180 tabs 05/09/24 06/20/24 clopidogrel 75 mg tablet (Plavix) 75 mg PO DAILY #90 tabs 05/09/24 06/20/24 nitroglycerin 0.4 mg sublingual 0.4 mg sublingual Q5-15M PRN chest 05/09/24 06/20/24 tablet pain #25 tabs triamterene 37.5 0.5 tab PO DAILY #45 tabs 05/09/24 06/20/24 mg-hydrochlorothiazide 25 mg tablet celecoxib 200 mg capsule (Celebrex) 200 mg PO DAILY PRN pain #90 caps 05/21/24 06/20/24 Previous Rx's ?Medication ?Instructions ?Recorded magnesium chloride 64 mg 128 mg (2 x 64 mg) PO DAILY #180 10/13/20 (magnesium chloride) tabs tablet,delayed release (Mag 64) metoprolol succinate 50 mg 50 mg PO DAILY #90 tabs 11/25/23 tablet,extended release 24 hr apixaban 5 mg tablet 5 mg PO BID #180 tabs 05/09/24 clopidogrel 75 mg tablet (Plavix) 75 mg PO DAILY #90 tabs 05/09/24 nitroglycerin 0.4 mg sublingual 0.4 mg sublingual Q5-15M PRN chest 05/09/24 tablet pain #25 tabs triamterene 37.5 0.5 tab PO DAILY #45 tabs 05/09/24 mg-hydrochlorothiazide 25 mg tablet celecoxib 200 mg capsule (Celebrex) 200 mg PO DAILY PRN pain #90 caps 05/21/24 Allergies Allergy/AdvReac Type Severity Reaction Status Date / Time Tetanus Vaccines and Toxoid Allergy Unknown LARGE Verified 06/20/24 11:01 (Tetanus Vaccines \T\ Toxoid) LOCAL REACTION oxycodone AdvReac Intermediate HALLUCINATI Verified 06/20/24 11:01 ONS ezetimibe AdvReac INTOLERANT Verified 06/20/24 11:01 CAT HAIR Allergy Mild Wheezing Uncoded 06/20/24 11:01 DUST Allergy Unknown Wheezing Uncoded 06/20/24 11:01 POLLEN EXTRACTS Allergy Unknown Wheezing Uncoded 06/20/24 11:01 General Stated Complaint: Nausea/Vomit/Diar HUONG: 3 Course Vital Signs Vital signs: Vital Signs Temperature 36.6 C 06/20/24 10:57 Pulse 65 06/20/24 10:57 Respiratory Rate 16 06/20/24 10:57 Blood Pressure 114/61 06/20/24 10:57 Pulse Oximetry 92 06/20/24 10:57 Temperature 36.6 C 06/20/24 10:57 Temperature Source Temporal Artery Scan 06/20/24 10:57 Pulse 65 06/20/24 10:57 Respiratory Rate 16 06/20/24 10:57 Blood Pressure 114/61 06/20/24 10:57 Blood Pressure Position Sitting 06/20/24 10:57 Pulse Oximetry 92 06/20/24 10:57 Oxygen Delivery Method Room Air 06/20/24 10:57 Oxygen Flow Rate 0 06/20/24 10:57 Pain Level 0 06/20/24 10:57 Medical Decision Making Quality:SDOH Health Related Social Needs: No Data to Display PFSH All Active Problems (Updated 06/20/24 @ 15:41 by Woo Cardoso MD) Weakness (Acute) Myocardial injury (Acute) Atrial fibrillation (Chronic ~03/2024) ASCVD (arteriosclerotic cardiovascular disease) (Chronic) [place] 1987 s/p CABG x 3 in 2002 and SYED to left circumflex artery in 2013. NSTEMI 03/2024 s/p SYED to LAD. 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 Essential hypertension (Chronic) Hyperlipidemia (Chronic) Psoriasis (Chronic) Prediabetes (Chronic) Sensorineural hearing loss, bilateral (Chronic) Bilateral hearing aids Diverticulosis of colon (Chronic) Medical History (Updated 06/20/24 @ 15:41 by Woo Cardoso MD) Tubular adenoma of colon CVA (cerebral vascular accident) (~10/2022) And 1997 Myocardial infarction (~1987) Herpes zoster Smoker Transient ischemic attack Surgical History (Updated 05/04/24 @ 09:29 by Syeda Singh NP) S/P coronary artery stent placement (04/24/24) SYED to LCX 2013, SYED to LAD 2023 Status post appendectomy Status post three vessel coronary artery bypass (~2002) Status post tonsillectomy Status post vasectomy Family History Mother , age 67 Breast cancer Lung cancer Brain cancer Father , age 69 Diabetes Alcohol abuse Heart disease Stroke Paternal Grandfather Hypertensive disorder, systemic arterial Heart disease Paternal Grandmother Hypertensive disorder, systemic arterial Maternal Grandmother Diabetes Social History Smoking/Tobacco Use Status: Former Tobacco Use tobacco type: cigarettes Tobacco: How many years used: 5 Second Hand Exposure: Yes Smoking risk assessment performed?: Yes Alcohol Intake: current Alcohol Intake frequency: a few times a week Alcohol type: beer and hard liquor Drug use: Never Substance use type: does not use Adopted: No Caregiver/Support person: No Foster care: No Household members: spouse Housing: house Number of Children: 2 number of grandchildren: 4 Communication Needs: None Education Level: high school Do you need help understanding health information?: Rarely current occupation: Retired Pets and animals: No Sexually active: Yes Do you think of yourself as: straight/heterosexual Current gender identity: male What is your relationship status?: How often do you talk on the phone with friends or family?: three or more times per week How often do you get together with friends or relatives?: three or more times per week How often do you attend buddhist or episcopalian services?: decline to answer Do you belong to any clubs or organized social groups?: decline to answer Panel score (0-1 are the most socially isolated patients): 2 What type of physical activity do you participate in: walking Duration: 15-30 minutes/day Frequency: daily Adrianna/Amish: Yazidism Special adrianna needs: No Agree to transfusion: Yes Seatbelt use: always Helmet use: Yes Helmet use: always Drive intox or ride w/intox wagon driver salesperson: No Working smoke detector in home: Yes Carbon monox detector in home: Yes Firearms in home: Yes Firearms unloaded and locked: No Do you feel safe at home: Yes Do you feel safe in your relationship?: Yes Victim of physical abuse: No Victim of emotional abuse: No Victim of sexual abuse: No Would you like helpful sources: No
[2024-06-20] MEDS: Normal Saline 500 ML 250 ML IV (11:27)
[2024-06-20 11:31] LABS: Abs Immature Grans 0.02 10^3/uL (0.0-0.06); Absolute Basophil Count 0.01 10^3/uL (0.0-0.2); Absolute Lymphocyte Count 0.26 10^3/uL (1.2-3.4); Absolute Monocyte Count 0.17 10^3/uL (0.1-0.8); Basophils % 0.2 %; HCT 45.1 % (40.0-50.0); HGB 15.2 g/dL (13.5-17.5); Immature Grans % 0.5 %; Lymphocytes % 6.4 %; MCH 33.5 pg (27.0-33.0); MCHC 33.7 % (32.0-36.0); MCV 99 fL (80-95); MPV 9.7 fL (8.0-11.0); Monocytes % 4.2 %; Neutrophils % 88.7 %; Platelet Count 133 10^3/uL (130-400); RBC 4.54 10^6/uL (4.36-5.78); RDW 12.4 % (11.8-14.1); RDW-SD 46.5 fL; WBC 4.06 10^3/uL (4.4-10.8)
[2024-06-20 12:47] LABS: COVID-19 PCR Negative (Negative); Influenza A PCR Negative (Negative); Influenza B PCR Negative (Negative); RSV PCR Negative (Negative)
[2024-06-20 12:50] LABS: Source Nasopharynx
--- NOTE | 2024-06-20 13:15 | RT.EKG_ITS ---
APPROVED REPORT Exam: Resting ECG Reason for Exam: weakness Patient Location: E HR:59 bpm ECG Measurements Heart Rate 59 AXIS CO 185 P -7 QRSd 103 QRS 27 QT 447 T 43 QTc 443 Conclusion Sinus bradycardia...rate< 60 Ventricular premature complex...V complex w/ short R-R interval Sinus bradycardia rate of 59. Normal axis. Interventricular conduction delay. CO and QTc within no rmal limits. Improved ST segment elevation in aVF. PVC. No acute injury pattern. No significant c hange compared to prior.
[2024-06-20 13:16] LABS: Anion Gap 10.6 mmol/L (3-11); BUN 23 mg/dL (7-18); CO2 24.4 mmol/L (21.0-32.0); CREATININE 1.1 mg/dL (0.70-1.30); Calcium 9.1 mg/dL (8.5-10.1); Chloride 99 mmol/L (98-107); Estimated GFR 69.57 (mL/min/1.73m2); Glucose 117 mg/dL (74-106); Magnesium 2.3 mg/dL (1.8-2.4); Potassium 3.9 mmol/L (3.5-5.1); Sodium 134 mmol/L (136-145)
[2024-06-20 13:23] LABS: Troponin I 133 ng/L (< or =60)
[2024-06-20] MEDS: Aspirin 81 MG CHEW 324 MG CH (13:24)
[2024-06-20 14:05] LABS: Troponin I 113 ng/L (< or =60)
--- NOTE | 2024-06-20 15:30 | DI.RAD_ITS ---
Exam(s) XR PORTABLE CHEST AP EXAM: XR PORTABLE CHEST AP CLINICAL HISTORY: weakness TECHNIQUE: 2D digital imaging was performed. COMPARISON: CR XR PORTABLE CHEST AP from 04/20/2024 FINDINGS: LUNGS: Clear. No pleural abnormality seen. HEART: Enlarged. Status post CABG. AORTA: Normal diameter. BONES: Sternal wires. Spine mostly obscured. Soft tissues: Unremarkable. IMPRESSION: No acute findings. DATA REPOSITORY: RADIATION DOSE DELIVERED:
--- NOTE | 2024-06-20 15:45 | RT.EKG_ITS ---
APPROVED REPORT Exam: Resting ECG Reason for Exam: chest pain Patient Location: E HR:87 bpm ECG Measurements Heart Rate 87 AXIS OK 201 P 51 QRSd 101 QRS 37 QT 350 T 111 QTc 422 Conclusion Sinus rhythm...normal P axis, V-rate 60- 99 Ventricular trigeminy...trigeminy string>6 w/ V complexes Left atrial enlargement...P, P'>60mS, <-0.15mV V1 Probable anteroseptal infarct, recent...Q, ST>0.15mV, T neg, V1-V2 Abnormal T, consider ischemia, lateral leads...T <-0.20mV, I aVL V5 V6 Physician: elevation in V1-2, lateral depression in V4-6. These are new findings, but it does not radha t stemi criterion
--- NOTE | 2024-06-20 15:45 | RT.EKG_ITS ---
APPROVED REPORT Exam: Resting ECG Reason for Exam: chest pain Patient Location: E HR:83 bpm ECG Measurements Heart Rate 83 AXIS NC 212 P 57 QRSd 107 QRS 40 QT 355 T 110 QTc 418 Conclusion Sinus rhythm...normal P axis, V-rate 60- 99 Borderline prolonged NC interval...NC >212, V-rate 50- 90 Left atrial enlargement...P, P'>60mS, <-0.15mV V1 Probable anteroseptal infarct, recent...Q, ST>0.15mV, T neg, V1-V2 Abnormal T, consider ischemia, lateral leads...T <-0.20mV, I aVL V5 V6 33 normal sinus rhythm at a rate of [address] segment elevations V1 and V2 with diff use ST segment depressions left lateral chest wall leads extending out to 1 and aVL. Concerning for acute injury pattern.
[2024-06-20] MEDS: nitroGLYcerin 0.4 MG TAB ×2 (15:56→16:08)
[2024-06-20 16:30] LABS: Troponin I 82 ng/L (< or =60)
--- NOTE | 2024-06-20 17:18 | W.PM.HP.N ---
Date of service: 06/20/24 Time of Service: 17:18 Assessment and Plan Assessment and plan (1) Fever: Status: Acute Assessment and plan: T max 100.7 w/o leukocytosis but lymphocytopenia blood culture UA (2) Weakness: Status: Acute (3) Atrial fibrillation: Status: Chronic Assessment and plan: Hisotry of now in SR HR 66 on EKG On home dose metoprolol (4) ASCVD (arteriosclerotic cardiovascular disease): Status: Chronic Assessment and plan: Stent a month ago at [facility] [place] Eliquis and Plavix On Statin ASA 324 mg for chest pain given in ED Now on ASA 81 mg will investigate the reason ASA 81 mg was held on 05/09/24 by PCP, might not be needed at discharge (5) History of stroke: Status: Chronic Assessment and plan: As above (6) Hyperlipidemia: Status: Chronic Assessment and plan: Continue home statin dose (7) Nausea & vomiting: Status: Acute Assessment and plan: PRN ondansetron (8) Elevated troponin: Status: Acute Assessment and plan: C/o chest pain resolving with nitro SL, ASA 324 given in ED Troponin on arrival 133, then 113 Chest pain and EKG change with repeat trop 82, then 138 and AM trop 121- no further trending unless symptomatic [facility] cardiology recommnded Echocardiogram and MPI. Did not recommend Heparin Echo this AM MPI this AM Discussed with Dr. Plummer History of Present Illness History of Present Illness Chief Complaint: Chest pain Narrative: This 74-year-old male patient with a past medical history of coronary artery disease status post stenting at [facility] a month ago with NSTEMI, HFrEF with an LVEF of 32%, CVA with short-term memory lapse presented to the ED at [facility] today for complaints of decreased energy and dizziness. The patient reported a single episode of diarrhea 3 days prior to presentation resolving with 1 dose of Imodium; reported use of prior antibiotics. Episode of confusion reported around 5 AM this morning with noticing cold sweats. Decreased oral intake reported yesterday as well as nausea and small episode of emesis this morning. On arrival to the ED the patient was no longer dizzy, denied abdominal pain, chest pain, fever, cough, or shortness of breath beyond baseline. The patient reported having baseline shortness of breath upon walking a certain distance. In the ED the initial EKG showed sinus rhythm rate [address] segment elevation in aVF and slightly more pronounced segment elevation in lead III, no ST segment depression at the time. Blood work was remarkable for initial troponin at 133, MCV at 99, absolute lymphocytopenia at 0.26, sodium at 134. Subsequent troponins was 113. Pulm consultation with [facility] cardiology, recommendation was given to keep the patient overnight and proceed with stress test and echocardiogram in the morning. Later in the emergency room the patient developed chest pain. A subsequent EKG showed slight elevation of ST segment in V1 and V2 as well as ST depression in V4, V5 and V6. The patient which she received nitro glycerin sublingual with resolution of chest pain. Aspirin and Plavix were also administered to the patient. Upon consulting [facility] cardiology team, STEMI criteria were not met as per consult. Repeated troponin showed a level of 82. Troponin to be repeated in 3 hours and trend. The hospitalist was consulted and the plan plan remains to admit the patient overnight for stress test and echocardiogram after discussion with Dr. Moran. The patient was admitted to the medical surgical floor with telemetry for evaluation and management of chest pain, elevated troponin and EKG changes.Upon discussion with Dr. Moran, heparin is not a recommendation as per [facility] cardiology; continue home dose Eliquis and home dose plavix. When seen, the patient reported another episode of nausea with position change and emesis after eating dinner. The patient denied dizziness, change in vision, chest pain, abdominal pain. oral temperature s/p vomiting was 100.7, a UA and blood cultures were added the to workup in the ED and pending. Patient had a sick contact upper respiratory viral results are negative today.The patient is a full code, but POA/spouse and family members verbalized understanding that code status could be reevaluated and reversed if needed. Review of Systems All systems reviewed & are unremarkable except as noted in HPI and below PFSH All Active Problems (Updated 06/21/24 @ 10:00 by Ursula Mason APRN) Elevated troponin (Acute) Nausea & vomiting (Acute) Fever (Acute) Weakness (Acute) Myocardial injury (Acute) Atrial fibrillation (Chronic ~03/2024) ASCVD (arteriosclerotic cardiovascular disease) (Chronic) MA 1987 s/p CABG x 3 in 2002 and SYED to left circumflex artery in 2013. NSTEMI 03/2024 s/p SYED to LAD. 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 Essential hypertension (Chronic) Hyperlipidemia (Chronic) Psoriasis (Chronic) Prediabetes (Chronic) Sensorineural hearing loss, bilateral (Chronic) Bilateral hearing aids Diverticulosis of colon (Chronic) Medical History Tubular adenoma of colon CVA (cerebral vascular accident) (~10/2022) And 1997 Myocardial infarction (~1987) Herpes zoster Smoker Transient ischemic attack Surgical History S/P coronary artery stent placement (04/24/24) SYED to LCX 2013, SYED to LAD 2023 Status post appendectomy Status post three vessel coronary artery bypass (~2002) Status post tonsillectomy Status post vasectomy Family History Mother , age 67 Breast cancer Lung cancer Brain cancer Father , age 69 Diabetes Alcohol abuse Heart disease Stroke Paternal Grandfather Hypertensive disorder, systemic arterial Heart disease Paternal Grandmother Hypertensive disorder, systemic arterial Maternal Grandmother Diabetes Social History Smoking/Tobacco Use Status: Former Tobacco Use tobacco type: cigarettes Tobacco: How many years used: 5 Second Hand Exposure: Yes Smoking risk assessment performed?: Yes Alcohol Intake: current Alcohol Intake frequency: a few times a week Alcohol type: beer and hard liquor Drug use: Never Substance use type: does not use Adopted: No Caregiver/Support person: No Foster care: No Household members: spouse Housing: house Number of Children: 2 number of grandchildren: 4 Communication Needs: None Education Level: high school Do you need help understanding health information?: Rarely current occupation: Retired Pets and animals: No Sexually active: Yes Do you think of yourself as: straight/heterosexual Current gender identity: male What is your relationship status?: How often do you talk on the phone with friends or family?: three or more times per week How often do you get together with friends or relatives?: three or more times per week How often do you attend mosque or alevism services?: decline to answer Do you belong to any clubs or organized social groups?: decline to answer Panel score (0-1 are the most socially isolated patients): 2 What type of physical activity do you participate in: walking Duration: 15-30 minutes/day Frequency: daily Adrianna/Denominational: Zoroastrianism Special adrianna needs: No Agree to transfusion: Yes Seatbelt use: always Helmet use: Yes Helmet use: always Drive intox or ride w/intox route driver: No Working smoke detector in home: Yes Carbon monox detector in home: Yes Firearms in home: Yes Firearms unloaded and locked: No Do you feel safe at home: Yes Do you feel safe in your relationship?: Yes Victim of physical abuse: No Victim of emotional abuse: No Victim of sexual abuse: No Would you like helpful sources: No Meds Allergies and Home Medications Allergies Allergy/AdvReac Type Severity Reaction Status Date / Time Tetanus Vaccines and Toxoid Allergy Unknown LARGE Verified 06/20/24 11:01 (Tetanus Vaccines \T\ Toxoid) LOCAL REACTION oxycodone AdvReac Intermediate HALLUCINATI Verified 06/20/24 11:01 ONS ezetimibe AdvReac INTOLERANT Verified 06/20/24 11:01 CAT HAIR Allergy Mild Wheezing Uncoded 06/20/24 11:01 DUST Allergy Unknown Wheezing Uncoded 06/20/24 11:01 POLLEN EXTRACTS Allergy Unknown Wheezing Uncoded 06/20/24 11:01 Home Medications ?Medication ?Instructions ?Recorded ?Confirmed ?Type [id number] C-Mn 750 1 ea PO BID 04/04/13 06/20/24 History mg-600 mg-55 mg-5 mg tablet cinnamon bark (bulk) 1 tsp PO DAILY 07/31/13 06/20/24 History multivitamin (Daily Vitamin tablet) 1 tab PO DAILY 07/30/14 06/20/24 History honey flavor (bulk) 1 tsp PO QAM 07/13/15 06/20/24 History loratadine 10 mg tablet (Allergy 10 mg PO DAILY 10/09/19 06/20/24 History Relief (loratadine)) magnesium chloride 64 mg 128 mg (2 x 64 mg) PO DAILY #180 10/13/20 06/20/24 Rx (magnesium chloride) tabs tablet,delayed release (Mag 64) aspirin 81 mg tablet,delayed 81 mg PO DAILY 01/31/23 06/20/24 History release metoprolol succinate 50 mg 50 mg PO DAILY #90 tabs 11/25/23 06/20/24 Rx tablet,extended release 24 hr atorvastatin 80 mg tablet 80 mg PO DAILY 02/13/24 06/20/24 History pantoprazole 40 mg tablet,delayed 40 mg PO DAILY 05/03/24 06/20/24 History release apixaban 5 mg tablet 5 mg PO BID #180 tabs 05/09/24 06/20/24 Rx clopidogrel 75 mg tablet (Plavix) 75 mg PO DAILY #90 tabs 05/09/24 06/20/24 Rx nitroglycerin 0.4 mg sublingual 0.4 mg sublingual Q5-15M PRN chest 05/09/24 06/20/24 Rx tablet pain #25 tabs triamterene 37.5 0.5 tab PO DAILY #45 tabs 05/09/24 06/20/24 Rx mg-hydrochlorothiazide 25 mg tablet celecoxib 200 mg capsule (Celebrex) 200 mg PO DAILY PRN pain #90 caps 05/21/24 06/20/24 Rx Exam Narrative Exam Narrative: Constitutional The patient stretcher w nausea and emesis s/p dinner intake, no chest pain , no abd pain, spouse and children at beside [facility]: Facial structures with normal appearance Eyes: Well aligned, intact ROM Neuro:alert and oriented X3, non-focal Resp: Clear lung bilaterally Cardio: regular rhythm, S1, S2, no murmur, capillary refill<3 sec., bilateral radial and dorsalis pedis pulses are positive GI: Abdomen is not distended, soft and non tender, bowel sounds are present : Negative Costovertebral angle tenderness Integumentary: No skin lesions or rash on exposed skin Extremities: strength 5/5 to bilateral lower and upper extremities Psych: RASS 0, congruent mood and normal affect. Results Labs 06/21/24 06:25 06/21/24 06:25 Labs: Laboratory Results - last 24 hr 06/20/24 06/20/24 06/20/24 11:18 11:54 13:35 WBC 4.06 L RBC 4.54 Hgb 15.2 Hct 45.1 MCV 99 H MCH 33.5 H MCHC 33.7 RDW 12.4 Plt Count 133 MPV 9.7 Immature Gran % 0.5 Neutrophils % 88.7 Lymphocytes % 6.4 Monocytes % 4.2 Eosinophils % 0.0 Basophils % 0.2 Nucleated RBC % 0.0 Absolute Neutrophils 3.60 Absolute Lymphocytes 0.26 L Absolute Monocytes 0.17 Absolute Eosinophils 0.00 Absolute Basophils 0.01 Sodium 134 L Potassium 3.9 Chloride 99 Carbon Dioxide 24.4 Anion Gap 10.6 BUN 23 H Creatinine 1.1 Est GFR (CKD-EPI 2020) 69.57 Glucose 117 H Calcium 9.1 Magnesium 2.3 Troponin I 133 H* 113 H* COVID-19 Source Nasopharynx SARS-CoV-2 (PCR) Negative Influenza Type A (PCR) Negative Influenza Type B (PCR) Negative RSV (PCR) Negative 06/20/24 16:03 WBC RBC Hgb Hct MCV MCH MCHC RDW Plt Count MPV Immature Gran % Neutrophils % Lymphocytes % Monocytes % Eosinophils % Basophils % Nucleated RBC % Absolute Neutrophils Absolute Lymphocytes Absolute Monocytes Absolute Eosinophils Absolute Basophils Sodium Potassium Chloride Carbon Dioxide Anion Gap BUN Creatinine Est GFR (CKD-EPI 2020) Glucose Calcium Magnesium Troponin I 82 H* COVID-19 Source SARS-CoV-2 (PCR) Influenza Type A (PCR) Influenza Type B (PCR) RSV (PCR) Last Vital Signs Temp 36.6 C 06/20/24 10:57 Pulse 92 H 06/20/24 16:46 Resp 25 H 06/20/24 16:46 BP 155/99 H 06/20/24 16:46 Pulse Ox 95 06/20/24 16:13 Time Spent Time spent with Patient: >75 minutes Time was spent: preparing to see the patient(eg.review tests), obtaining and/or reviewing separately otained hiistory, ordering medications,tests, procedures, referring, communicating with other health child care worker, indepentently interpreting results, counseling the patient and care coordination
--- NOTE | 2024-06-20 17:48 | ED.PROG_ITS ---
Date of service: 06/20/24 Time of Service: 17:49 Medical Decision Making Patient was signed out to me by my colleague Dr. Cardoso. Initially the plan with [facility] had been to admit, and perform echo and potential stress testing as well as serial troponins. Just prior to this happening the patient did get up and went to the bathroom, when he got back he developed chest pain, EKG was performed which showed ST elevations in V1 and V2 and depressions in V4 V5 and V6. These were new changes. He was given nitroglycerin and his pain resolved. We did reach back out to [facility] and I discussed the case with Dr. Alatorre, he reviewed the case, and at this time confirms that he does not believe that he meets STEMI criteria. He recommends continuation of plan of serial troponin trending, echo, and reassessment. He recommends and request that we reach out to him if anything changes, the troponins go up, or the echo comes back atypical. Additionally [facility] does not recommend heparinization as the patient is on Eliquis. They recommend continuation of aspirin and Plavix. I discussed the case with the hospitalist team. They agree with the plan, and the patient will be admitted. I have extensively reviewed the treatment plan with the patient. I have addressed all patient concerns at this time. I have also discussed the plan with the admitting physician and they agree with the current assessment and plan and have agreed to assume responsibility for the patient. All parties demonstrate verbal understanding and agreement with our assessment and plan at this time. The documentation in this chart was dictated using [employer] dictation software. Please excuse any dictation errors. Of note after discussion with the transfer team at 5:51 PM the patient did have an episode of nausea and threw up once, he also spiked a fever. Chest x-ray was negative, COVID flu and RSV negative. We will add a urinalysis to look for other potential infectious etiology, as well as blood cultures. This information/update will be given to the medicine team. Quality:[facility] Health Related Social Needs: No Data to Display Sign Out Sign Out Data: Sign Out Comment: high risk CP w/ECG changes & PCI < 2 months ago. FU: -repeat trop, -responsive to nitro, -CXR, and -possibility of re-engagement w/cards at [facility] (I spoke to Belinda Diego @ Transfer Center) Last updated by Woo Cardoso MD at 06/20/24 16:06 Discharge Plan Disposition Patient Disposition: Admit to [facility] Condition: Stable Discharge Details Clinical Impression: Myocardial injury, Weakness, Fever Admit Date/Time: 06/20/24 17:16 Admit Provider: Tristin Plummer Attending Provider: Tristin Plummer Primary Care Provider: Syeda Singh ED Provider: Surinder Moran Discharge Data Discharge Date/Time-TO BE ENTERED AT DEPARTURE: 06/21/24 00:10
[2024-06-20] MEDS: Ondansetron 4 MG/2 ML VIAL IVP (17:52)
[2024-06-20 18:58] LABS: Bilirubin Negative (Negative); Blood Small (Negative); Clarity Clear (Clear); Glucose Negative (Negative); Ketones Negative (Negative); Leukocyte Esterase Negative (Negative); Nitrite Negative (Negative); Specific Gravity >= 1.030 (1.005-1.025); Urobilinogen 0.2 mg/dL (Up to 0.2); pH 5.5 (5-8)
[2024-06-20 19:06] LABS: Bacteria Negative HPF (Negative); C & S Indicated? No; Crystals Negative HPF (Negative); Epithelial Cells Negative HPF (Negative); Mucus Moderate (Negative); RBC 0-2 HPF (0-2); WBC Negative HPF (0-5)
--- NOTE | 2024-06-20 20:45 | RT.EKG_ITS ---
APPROVED REPORT Exam: Resting ECG Reason for Exam: chest pain Patient Location: E HR:73 bpm ECG Measurements Heart Rate 73 AXIS SC 207 P 23 QRSd 99 QRS 33 QT 373 T 65 QTc 411 Conclusion Sinus rhythm...normal P axis, V-rate 60- 99 Probable left atrial enlargement...P >50mS, <-0.10mV V1 Consider anteroseptal infarct...Q >30mS, dimin R, V1-V2 Physician: minimal elevation in V1-2 with minimal depression in V4-5. No stemi, notably improved from prior ekg
--- NOTE | 2024-06-20 23:51 | W.PCEDHO ---
Registration Status: Primary Language: Preferred Language: ED Information & Data Chief Complaint Nausea/Vomit/Diar 06/20/24 11:03 Triage Note Pt c/o diarrhea that started 06/20/24 10:57 on Tuesday. Pt states he is more tired than normal and had some dizziness this morning. Pt felt disoriented this morning and states he was clammy. Pt is in cardiac care and was told to come to the ER to get checked out. Pt had a stent placed in April at [facility]. Denies CP/SOB. Medical / Surgical History (Last Reviewed 06/20/24 @ 18:26 by Ursula Mason APRN) Tubular adenoma of colon CVA (cerebral vascular accident) (~10/2022) Myocardial infarction (~1987) Herpes zoster Smoker Transient ischemic attack (Last Reviewed 06/20/24 @ 18:26 by Ursula Mason APRN) S/P coronary artery stent placement (04/24/24) Status post appendectomy Status post three vessel coronary artery bypass (~2002) Status post tonsillectomy Status post vasectomy Most Recent Vital Signs Temperature 36.6 C 06/20/24 10:57 Temperature Source Temporal Artery Scan 06/20/24 10:57 Pulse 70 06/20/24 20:24 Pulse 81 06/20/24 21:30 Respiratory Rate 23 06/20/24 21:30 Respiratory Effort Normal 06/20/24 11:02 Blood Pressure 125/54 L 06/20/24 20:24 Blood Pressure Mean 79 06/20/24 20:24 Blood Pressure Position Sitting 06/20/24 10:57 Pulse Oximetry 95 06/20/24 16:13 Oxygen Delivery Method Room Air 06/20/24 10:57 Oxygen Flow Rate 0 06/20/24 10:57 Pain Level 0 06/20/24 16:13 Allergies Tetanus Vaccines and Toxoid (Tetanus Vaccines \T\ Toxoid) Allergy (Unknown, Verified 06/20/24 11:01) LARGE LOCAL REACTION oxycodone Adverse Reaction (Intermediate, Verified 06/20/24 11:01) HALLUCINATIONS ezetimibe Adverse Reaction (Verified 06/20/24 11:01) INTOLERANT CAT HAIR Allergy (Mild, Uncoded 06/20/24 11:01) Wheezing DUST Allergy (Unknown, Uncoded 06/20/24 11:01) Wheezing POLLEN EXTRACTS Allergy (Unknown, Uncoded 06/20/24 11:01) Wheezing IV IV Catheter Type [Left Saline Lock Antecubital] IV Catheter Gauge [Left 20 Antecubital] Diagnostics 06/20/24 06/20/24 06/20/24 Range/Units 18:50 16:03 13:35 WBC (4.4-10.8) 10^3/uL RBC (4.36-5.78) 10^6/uL Hgb (13.5-17.5) g/dL Hct (40.0-50.0) % MCV (80-95) fL MCH (27.0-33.0) pg MCHC (32.0-36.0) % RDW (11.8-14.1) % Plt Count (130-400) 10^3/uL MPV (8.0-11.0) fL Immature Gran % % Neutrophils % % Lymphocytes % % Monocytes % % Eosinophils % % Basophils % % Nucleated RBC % (0.0-0.3) % Absolute Neutrophils (1.2-6.7) 10^3/uL Absolute Lymphocytes (1.2-3.4) 10^3/uL Absolute Monocytes (0.1-0.8) 10^3/uL Absolute Eosinophils (0.0-0.7) 10^3/uL Absolute Basophils (0.0-0.2) 10^3/uL Sodium (136-145) mmol/L Potassium (3.5-5.1) mmol/L Chloride (98-107) mmol/L Carbon Dioxide (21.0-32.0) mmol/L Anion Gap (3-11) mmol/L BUN (7-18) mg/dL Creatinine (0.70-1.30) mg/dL Est GFR (CKD-EPI 2020) (mL/min/1.73m2) Glucose (74-106) mg/dL Calcium (8.5-10.1) mg/dL Magnesium (1.8-2.4) mg/dL Troponin I 82 H* 113 H* (< or =60) ng/L Urine Color Yellow (Yellow) Urine Clarity Clear (Clear) Urine pH 5.5 (5-8) Ur Specific Crawford >= 1.030 H (1.005-1.025) Urine Protein 100 H (Neg-Trace) mg/dL Urine Ketones Negative (Negative) mg/dL Urine Blood Small H (Negative) Urine Nitrite Negative (Negative) Urine Bilirubin Negative (Negative) Urine Urobilinogen 0.2 (Up to 0.2) mg/dL Ur Leukocyte Esterase Negative (Negative) Urine RBC 0-2 (0-2) HPF Urine WBC Negative (0-5) HPF Ur Epithelial Cells Negative (Negative) HPF Urine Crystals Negative (Negative) HPF Urine Bacteria Negative (Negative) HPF Urine Mucus Moderate (Negative) Ur Culture Indicated? No Urine Glucose Negative (Negative) mg/dL COVID-19 Source SARS-CoV-2 (PCR) (Negative) Influenza Type A (PCR) (Negative) Influenza Type B (PCR) (Negative) RSV (PCR) (Negative) 06/20/24 06/20/24 Range/Units 11:54 11:18 WBC 4.06 L (4.4-10.8) 10^3/uL RBC 4.54 (4.36-5.78) 10^6/uL Hgb 15.2 (13.5-17.5) g/dL Hct 45.1 (40.0-50.0) % MCV 99 H (80-95) fL MCH 33.5 H (27.0-33.0) pg MCHC 33.7 (32.0-36.0) % RDW 12.4 (11.8-14.1) % Plt Count 133 (130-400) 10^3/uL MPV 9.7 (8.0-11.0) fL Immature Gran % 0.5 % Neutrophils % 88.7 % Lymphocytes % 6.4 % Monocytes % 4.2 % Eosinophils % 0.0 % Basophils % 0.2 % Nucleated RBC % 0.0 (0.0-0.3) % Absolute Neutrophils 3.60 (1.2-6.7) 10^3/uL Absolute Lymphocytes 0.26 L (1.2-3.4) 10^3/uL Absolute Monocytes 0.17 (0.1-0.8) 10^3/uL Absolute Eosinophils 0.00 (0.0-0.7) 10^3/uL Absolute Basophils 0.01 (0.0-0.2) 10^3/uL Sodium 134 L (136-145) mmol/L Potassium 3.9 (3.5-5.1) mmol/L Chloride 99 (98-107) mmol/L Carbon Dioxide 24.4 (21.0-32.0) mmol/L Anion Gap 10.6 (3-11) mmol/L BUN 23 H (7-18) mg/dL Creatinine 1.1 (0.70-1.30) mg/dL Est GFR (CKD-EPI 2020) 69.57 (mL/min/1.73m2) Glucose 117 H (74-106) mg/dL Calcium 9.1 (8.5-10.1) mg/dL Magnesium 2.3 (1.8-2.4) mg/dL Troponin I 133 H* (< or =60) ng/L Urine Color (Yellow) Urine Clarity (Clear) Urine pH (5-8) Ur Specific Crawford (1.005-1.025) Urine Protein (Neg-Trace) mg/dL Urine Ketones (Negative) mg/dL Urine Blood (Negative) Urine Nitrite (Negative) Urine Bilirubin (Negative) Urine Urobilinogen (Up to 0.2) mg/dL Ur Leukocyte Esterase (Negative) Urine RBC (0-2) HPF Urine WBC (0-5) HPF Ur Epithelial Cells (Negative) HPF Urine Crystals (Negative) HPF Urine Bacteria (Negative) HPF Urine Mucus (Negative) Ur Culture Indicated? Urine Glucose (Negative) mg/dL COVID-19 Source Nasopharynx SARS-CoV-2 (PCR) Negative (Negative) Influenza Type A (PCR) Negative (Negative) Influenza Type B (PCR) Negative (Negative) RSV (PCR) Negative (Negative) 06/20/24 19:16 Blood Culture - Pending Blood 06/20/24 19:00 Blood Culture - Pending Blood Intake and Output - 24 Hour Total 06/20/24 10:56 thru 06/20/24 13:27 Intake Total 510 Balance 510 Weight 73.028 kg Intake: IV 510 Falls Risk Assessment History of Falls No History 06/20/24 11:02 Contributing Factors No Factors 06/20/24 11:02 Ambulatory Aids Independent 06/20/24 11:02 Tubes/Lines None 06/20/24 11:02 Gait Evaluation No gait disturbance 06/20/24 11:02 Cognition No cognitive impairment 06/20/24 11:02 Fall Total Score 0 06/20/24 11:02 Level of Risk Standard/Low Risk 06/20/24 11:02 Problems (Last Reviewed 06/20/24 @ 18:26 by Ursula Mason APRN) Weakness (Acute) Myocardial injury (Acute) v v v v v v v v v Sending and/or Receiving Nurses: Please use comment section below to note any information pertinent to the patient hand-off not included above. Information / Comments: Report received from: kendal
[2024-06-21] VITALS (20 sets, daily range): BP systolic 92–115; BP diastolic 54–66; PULSE 60–136; RESP 16–20; TEMP 35.7–39.3; O2SAT 93–97
--- NOTE | 2024-06-21 | DI.NM_ITS ---
APPROVED REPORT Exam: Pharmacologic Patient Location: In-Patient Room/Bed: 210 Stress Nurse: Mariaelena Royal RN; Brandie Tafoya RN Ordering Provider:JOSE LUIS VALERI, Contact Number: BMI: 26.62 Baseline Rhythm: Sinus Rhythm Comment: 1st degree block, PVCs Indications: chest pain, increased troponins Medical History Medical History: [place], afib, ASCVD, NSTEMI, cognitive impairment, HLD, HTN, prediabetes, CVA, smoker, T IA Cardiac Medications: magnsium chloride, aspirin, atorvastatin, triamterene-hydrochlorothiazide, plavi x, nitroglycerin, apixaban, metoprolol succinate, celebrix Allergies: tetanus vaccines, oxycodone, ezetimibe Cardiac Risk Factors: family hx, prediabetes, HTN, HLD, CVD, former smoker Previous Cardiac Procedures: CABG, PCI Pretest Chest Pain Characteristics: No chest pain Exercise History: Physically active Physical Disabilities: generalized weakness Lung Sounds: Clear to auscultation Heart Sounds: Regular Stress Test Details Test: Pharmacologic stress testing performed using 0.4 mg of regadenoson per 5 mL given IV over 10 s econds. Reason for pharmacologic stress test: physical limitation. Nuclear Acquisition: Rest Tc-99m/Stress Tc-99m 1 day Rest Isotope: Tc-99m Sestamibi. Dose: 10.0 Date: 06/21/2024 Injection Time: 1230 Stress Isotope: Tc-99m Sestamibi. Dose: 30.0 Date: 06/21/2024 Injection Time: 1415 HR Resting HR Supine: 73 bpm Max Heart Rate (APMHR): 144.388361 bpm Target HR (85% APMHR): 122.289803 bpm Max HR Achieved: 85 bpm % of APMHR: 59.03 Recovery HR: 81 bpm BP Resting BP Supine: 118/60 mmHg Max BP: 118/72 mmHg Recovery BP: 108/60 mmHg ECG Resting ECG: Sinus Rhythm, 1st degree AV block Ectopy: none Comment: rare PVCs Stress ECG: Sinus Rhythm, 1st degree AV block ST Change: Nondiagnostic low heart rate Arrhythmia: rare PACs Recovery ECG: Sinus Rhythm, 1st degree AV block Recovery ST Change: Nondiagnostic low heart rate Recovery Arrhythmia: None Clinical Stress Symptoms: Dyspnea Angina Score: None Rate Pressure Product: [id number] Stress ECG Conclusion 1. Resting electrocardiogram showed poor R wave progression 2. Patient underwent testing using pharmacologic stress with regadenoson 3. Peak heart rate achieved was 59% of predicted heart rate for age 4. Electrocardiographic portion of the test was nondiagnostic 5. See MPI report Stress Test Summary STAGE HR BP SpO2 Symptoms NOTES Supine 73 118/60 89-92 1 min post Lexiscan injection 85 118/72 91 SOB 3 min post Lexiscan injection 84 98/50 95 6 min post Lexiscan injection 81 108/60 95 SOB resolved MPI Conclusion Technically suboptimal study LV is dilated, EF is calculated at 27%. The basal posterolateral wall appears infarcted Myocardial perfusion does not demonstrate any definite ischemia but is suboptimal Radiologist Interpretation Radiologist agrees with Lard Mixer's Interpretation. Radiologist Interpretation by: Eunice Pleitez MD Interpretation Date/Time: 06/21/2024 15:55:31
[2024-06-21] MEDS: Apixaban 5 MG TAB PO ×3 (00:36→20:54)
[2024-06-21 01:25] LABS: Troponin I 138 ng/L (< or =60)
[2024-06-21] MEDS: Acetaminophen 325 MG TAB 650 MG PO ×3 (03:08→17:42)
[2024-06-21 07:08] LABS: Abs Immature Grans 0.02 10^3/uL (0.0-0.06); MCH 32.9 pg (27.0-33.0); MCHC 32.6 % (32.0-36.0); MCV 101 fL (80-95); MPV 10.9 fL (8.0-11.0); Platelet Count 84 10^3/uL (130-400); RBC 4.56 10^6/uL (4.36-5.78); RDW 12.5 % (11.8-14.1); RDW-SD 47.1 fL; WBC 3.53 10^3/uL (4.4-10.8)
[2024-06-21 07:34] LABS: Absolute Neutrophil Count 2.89 10^3/uL (1.2-6.7); Atypical Lymphocytes % 1 %; Bands % 8 %
[2024-06-21 07:35] LABS: Absolute Lymphocyte Count 0.53 10^3/uL (1.2-3.4); Absolute Monocyte Count 0.11 10^3/uL (0.1-0.8)
[2024-06-21 07:36] LABS: Diff Comment Manual Differential; RBC Morphology Normal
[2024-06-21] MEDS: Aspirin 81 MG CHEW PO (07:40)
[2024-06-21] MEDS: Pantoprazole 40 MG TABCR PO (07:40)
[2024-06-21] MEDS: Multivitamin TAB 1 TAB PO (07:41)
[2024-06-21] MEDS: Loratidine 10 MG TAB PO (07:41)
[2024-06-21] MEDS: Metoprolol CR 50 MG TABCR PO (07:41)
[2024-06-21] MEDS: Clopidogrel 75 MG TAB PO (07:41)
--- NOTE | 2024-06-21 08:00 | DI.US_ITS ---
APPROVED REPORT EXAM: Comprehensive 2D, Doppler, and color-flow Echocardiogram Patient Location: In-Patient Room/Bed: 210 Applications Trainer: Payton Espitia RDCS (AE) Indications: Chest pain, EKG changes, CHF, H/O [place] [facility] [place] for function Other Information Study Quality: Adequate. Technically limited study due to exam performed bedside. Conclusion Normal left ventricular wall thickness and chamber size. Left ventricular end-diastolic dimension is 5.7 cm Ejection fraction is 45 to 50% Inferior posterior wall motion abnormalities are suggested Normal biatrial size Compared to an echocardiogram from March at [facility], LV systolic function has improved Wall motion Left Ventricle The left ventricle is normal size. Left ventricular systolic function is mild to moderately decreased . Limited echo performed for function evaluation. There is normal left ventricular wall thickness. In ferior posterior wall motion abnormalities are suggested LVEF is 45-50%. Atria The left atrium size is normal. The right atrium size is normal. Great Vessels IVC is normal in size and collapses >50% with inspiration. Pericardium There is no pericardial effusion. 2D Dimensions IVSD d PLAX 0.90 cm M: 0.6-1.2 LVPW d PLAX 0.91 cm M: 0.6 - 1.2 LVID d PLAX 5.67 cm M: 4.2 - 5.8 LVDs 4.72 cm M: 2.5 - 4.0 LV EF Teichholz 34.6 % FS 16.76 % LV EDV (Teich) 158.1 mL LV ESV (Teich) 103.3 mL Auto EF LV EDV A4C 148.0 mL LV EDV A2C 168.8 mL LV EDV BP 158.1 mL LV ESV A4C 81.7 mL LV ESV A2C 82.4 mL LV ESV BP 82.3 mL LVEF(%) A4C 44.8 % LVEF(%) A2C 51.2 % LVEF(%) BP 48.0 % LV SV A4C 66.2 ml LV SV A2C 86.4 ml LV SV BP 75.9 ml LV CO A4C 5.2 L/min LV CO A2C 6.5 L/min LV CO BP 5.8 L/min HR A4C 77.92 BPM HR A2C 75.00 BPM LV EDV Index (BP) LV Strain Long Pk Overal Avg (s) 12.00
[2024-06-21 08:05] LABS: Anion Gap 8.6 mmol/L (3-11); BUN 18 mg/dL (7-18); CO2 26.4 mmol/L (21.0-32.0); CREATININE 0.9 mg/dL (0.70-1.30); Calcium 9.2 mg/dL (8.5-10.1); Chloride 98 mmol/L (98-107); Estimated GFR 88.51 (mL/min/1.73m2); Glucose 97 mg/dL (74-106); Magnesium 2.4 mg/dL (1.8-2.4); Potassium 3.9 mmol/L (3.5-5.1); Sodium 133 mmol/L (136-145)
[2024-06-21 08:06] LABS: Troponin I 121 ng/L (< or =60)
[2024-06-21] MEDS: Triamterene 37.5/HCTZ 25 CAP PO (08:35)
--- NOTE | 2024-06-21 10:11 | PGE_ITS ---
Date of Service Date of service: 06/21/24 Time of Service: 10:11 Assessment and Plan Assessment and plan (1) Fever: Status: Acute Assessment and plan: T max 100.7 w/o leukocytosis but lymphocytopenia on admit but Tmax 38.6 overnight with increased thrombocytopenia at 84 and ongoing lymphocytopenia -LFT's added to AM lab- normal except for sight elevation in AST -Suspecting anaplasmosis will initiate doxycycline IV -Small scab resembling insect bite left gluteal-intergluteal fold border -tick and bloodborne disease panel -Considering hepatitis panel blood culture pending UA negative CBC and CMP in AM (2) Weakness: Status: Acute Assessment and plan: Generalized with SOB on 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 [place] Eliquis and Plavix On Statin ASA 324 mg for chest pain given in ED Now on ASA 81 mg will investigate the reason ASA 81 mg was held on 05/09/24 by PCP, might not be needed at discharge (5) History of stroke: Status: Chronic Assessment and plan: As above (6) Hyperlipidemia: Status: Chronic Assessment and plan: Continue home statin dose (7) Nausea & vomiting: Status: Acute Assessment and plan: PRN ondansetron (8) Elevated troponin: Status: Acute Assessment and plan: C/o chest pain resolving with nitro SL, ASA 324 given in ED Troponin on arrival 133, then 113 Chest pain and EKG change with repeat trop 82, then 138 and AM trop 121- no further trending unless symptomatic [facility] Echocardiogram and MPI. Did not recommend Heparin Echo this AM results pending LVEF 32% on 04/22/2024 MPI this AM- pending Cardiology consult (9) Discharge planning issues: Status: Acute Assessment and plan: Will keep overnight Discussed with Dr. Downey Subjective Subjective Patient reports: feels better, voiding w/o difficulty and fever; denies diarrhea, nausea, vomiting or shortness of breath Exam Narrative Exam Narrative: Constitutional The patient in bed w/o acute distress, c/o headache - febrile overnight HENMT: Facial structures with normal appearance Neuro:alert and oriented X2, non-focal Resp: Clear lung bilaterally Cardio: regular rhythm, S1, S2, no murmur, capillary refill<3 sec., bilateral radial and pedal positive GI: Abdomen is not distended, soft and non tender, bowel sounds are present : Negative Costovertebral angle tenderness Integumentary: slight redness to intergleuteal fold - scab like insect bit to left glut. Psych: RASS 0, congruent mood and normal affect. Objective Last Vital Signs Temp 38.5 C H 06/21/24 08:10 Pulse 88 06/21/24 08:10 Resp 18 06/21/24 08:10 BP 106/66 06/21/24 08:10 Pulse Ox 94 06/21/24 08:10 Laboratory Results - last 24 hr 06/20/24 06/20/24 06/20/24 11:18 11:54 13:35 WBC 4.06 L RBC 4.54 Hgb 15.2 Hct 45.1 MCV 99 H MCH 33.5 H MCHC 33.7 RDW 12.4 Plt Count 133 MPV 9.7 Immature Gran % 0.5 Neutrophils % 88.7 Band Neutrophils % Lymphocytes % 6.4 Atypical Lymphs % Monocytes % 4.2 Eosinophils % 0.0 Basophils % 0.2 Nucleated RBC % 0.0 Absolute Neutrophils 3.60 Absolute Lymphocytes 0.26 L Absolute Monocytes 0.17 Absolute Eosinophils 0.00 Absolute Basophils 0.01 RBC Morphology Sodium 134 L Potassium 3.9 Chloride 99 Carbon Dioxide 24.4 Anion Gap 10.6 BUN 23 H Creatinine 1.1 Est GFR (CKD-EPI 2020) 69.57 Glucose 117 H Calcium 9.1 Magnesium 2.3 Troponin I 133 H* 113 H* Urine Color Urine Clarity Urine pH Ur Specific [place] Urine Protein Urine Ketones Urine Blood Urine Nitrite Urine Bilirubin Urine Urobilinogen Ur Leukocyte Esterase Urine RBC Urine WBC Ur Epithelial Cells Urine Crystals Urine Bacteria Urine Mucus Ur Culture Indicated? Urine Glucose COVID-19 Source Nasopharynx SARS-CoV-2 (PCR) Negative Influenza Type A (PCR) Negative Influenza Type B (PCR) Negative RSV (PCR) Negative 06/20/24 06/20/24 06/21/24 16:03 18:50 00:39 WBC RBC Hgb Hct MCV MCH MCHC RDW Plt Count MPV Immature Gran % Neutrophils % Band Neutrophils % Lymphocytes % Atypical Lymphs % Monocytes % Eosinophils % Basophils % Nucleated RBC % Absolute Neutrophils Absolute Lymphocytes Absolute Monocytes Absolute Eosinophils Absolute Basophils RBC Morphology Sodium Potassium Chloride Carbon Dioxide Anion Gap BUN Creatinine Est GFR (CKD-EPI 2020) Glucose Calcium Magnesium Troponin I 82 H* 138 H* Urine Color Yellow Urine Clarity Clear Urine pH 5.5 Ur Specific [place] >= 1.030 H Urine Protein 100 H Urine Ketones Negative Urine Blood Small H Urine Nitrite Negative Urine Bilirubin Negative Urine Urobilinogen 0.2 Ur Leukocyte Esterase Negative Urine RBC 0-2 Urine WBC Negative Ur Epithelial Cells Negative Urine Crystals Negative Urine Bacteria Negative Urine Mucus Moderate Ur Culture Indicated? No Urine Glucose Negative COVID-19 Source SARS-CoV-2 (PCR) Influenza Type A (PCR) Influenza Type B (PCR) RSV (PCR) 06/21/24 06:25 WBC 3.53 L RBC 4.56 Hgb 15.0 Hct 46.0 MCV 101 H MCH 32.9 MCHC 32.6 RDW 12.5 Plt Count 84 L MPV 10.9 Immature Gran % 0.0 Neutrophils % 74.0 Band Neutrophils % 8 Lymphocytes % 14.0 Atypical Lymphs % 1 Monocytes % 3.0 Eosinophils % 0.0 Basophils % 0.0 Nucleated RBC % 0.0 Absolute Neutrophils 2.89 Absolute Lymphocytes 0.53 L Absolute Monocytes 0.11 Absolute Eosinophils 0.00 Absolute Basophils 0.00 RBC Morphology Normal Sodium 133 L Potassium 3.9 Chloride 98 Carbon Dioxide 26.4 Anion Gap 8.6 BUN 18 Creatinine 0.9 Est GFR (CKD-EPI 2020) 88.51 Glucose 97 Calcium 9.2 Magnesium 2.4 Troponin I 121 H* Urine Color Urine Clarity Urine pH Ur Specific [place] Urine Protein Urine Ketones Urine Blood Urine Nitrite Urine Bilirubin Urine Urobilinogen Ur Leukocyte Esterase Urine RBC Urine WBC Ur Epithelial Cells Urine Crystals Urine Bacteria Urine Mucus Ur Culture Indicated? Urine Glucose COVID-19 Source SARS-CoV-2 (PCR) Influenza Type A (PCR) Influenza Type B (PCR) RSV (PCR) Time Spent with Patient Time Spent with Patient: >50 minutes Time was spent: preparing to see the patient(eg.review tests), obtaining and/or reviewing separately otained hiistory, ordering medications,tests, procedures, referring, communicating with other health nursing care attendant, indepentently interpreting results, counseling the patient and care coordination
[2024-06-21 10:12] LABS: Lab Add On Test DONE
[2024-06-21 10:38] LABS: ALT 51 U/L (16-63); AST 68 U/L (15-37); Albumin 3.2 g/dL (3.4-5.0); Alkaline Phosphatase 88 U/L (46-116); Bilirubin, Total 0.94 mg/dL (0.2-1.0); Total Protein 7.8 g/dL (6.4-8.2)
--- NOTE | 2024-06-21 10:38 | PDOC.CMIN ---
Date of service: 06/21/24 Time of Service: 10:42 Care Management Initial Assmt Initial Assessment Reason for Hospitalization: NVD Functional Status/Living Situation Patient Presentation: Pan was sitting up in his chair when CM met with him. He was visiting with his , Gabriella, and their son, Loyd. Pan stated that he and his live in [place], and their two sons live on the same road and are very supportive. They have four grandchildren who are also supportive, two of which live out of town. 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 Pan considers himself independent, still drives locally, and enjoys spending time on his tractor. Gabriella stated that per provider, Pan will remain overnight. He had an echo this morning, and is scheduled to have a stress test, likely this afternoon. Per report, he is being treated with IV antibiotics, and has blood and urine cultures pending, as well as a tick panel. CM will continue to follow. Town of Residence: [place] Resides with: Spouse Natural Supports: , Gabriella Sons, Loyd and Johny Four grandchildren Employment Status: Retired Instrumental Activities of Daily Living (ADLs): Independent Medications Medication Management: No Issues/Barriers identified Advance Directives Advance Directives: Do you have an Advance Directive: Y 09/11/13 15:55 AD On File at [facility]: Y 06/06/13 08:15 Date Asked 12/21/18 06/21/24 10:09 AD Date Reviewed 06/21/24 06/21/24 00:21 COLST On File at [facility] COLST Date Scanned Code Status Resuscitation Status Full Code Insurance Coverage/Financial Issues Insurance: [facility]. [facility] supplement. Care Team Visit Care Team Role Provider Type Syeda Singh NP Primary Care Provider NURSE PRACTITIONER Surinder Moran DO Emergency Provider [facility] STAFF PHYSICIAN Tristin Plummer MD Admit Provider [facility] STAFF PHYSICIAN Attending Provider Discharge Potential Discharge Needs: PCP F/U Appt Anticipated Barriers to Discharge: None Identified Patient/Family Education Needs: Review discharge instructions, discuss Ask Me Three Transportation: Private vehicle Plan: Anticipate Pan will return home once medically cleared. His will drive him home via private vehicle. He will follow up with his PCP and discharge plan of care. CM will continue to follow. PFSH All Active Problems (Updated 06/21/24 @ 13:47 by Ursula Mason APRN) Discharge planning issues (Acute) Elevated troponin (Acute) Nausea & vomiting (Acute) Fever (Acute) Weakness (Acute) Myocardial injury (Acute) Atrial fibrillation (Chronic ~03/2024) ASCVD (arteriosclerotic cardiovascular disease) (Chronic) [place] 1987 s/p CABG x 3 in 2002 and SYED to left circumflex artery in 2013. NSTEMI 03/2024 s/p SYED to LAD. 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 Essential hypertension (Chronic) Hyperlipidemia (Chronic) Psoriasis (Chronic) Prediabetes (Chronic) Sensorineural hearing loss, bilateral (Chronic) Bilateral hearing aids Diverticulosis of colon (Chronic) Medical History Tubular adenoma of colon 2008/2012/2015 CVA (cerebral vascular accident) (~10/2022) And 1997 Myocardial infarction (~1987) Herpes zoster Smoker Transient ischemic attack Surgical History S/P coronary artery stent placement (04/24/24) SYED to LCX 2013, SYED to LAD 2023 Status post appendectomy Status post three vessel coronary artery bypass (~2002) Status post tonsillectomy Status post vasectomy Family History Mother , age 67 Breast cancer Lung cancer Brain cancer Father , age 69 Diabetes Alcohol abuse Heart disease Stroke Paternal Grandfather Hypertensive disorder, systemic arterial Heart disease Paternal Grandmother Hypertensive disorder, systemic arterial Maternal Grandmother Diabetes Social History Smoking/Tobacco Use Status: Former Tobacco Use tobacco type: cigarettes Tobacco: How many years used: 5 Second Hand Exposure: Yes Smoking risk assessment performed?: Yes Alcohol Intake: current Alcohol Intake frequency: a few times a week Alcohol type: beer and hard liquor Drug use: Never Substance use type: does not use Adopted: No Caregiver/Support person: No Foster care: No Household members: spouse Housing: house Number of Children: 2 number of grandchildren: 4 Communication Needs: None Education Level: high school Do you need help understanding health information?: Rarely current occupation: Retired Pets and animals: No Sexually active: Yes Do you think of yourself as: straight/heterosexual Current gender identity: male What is your relationship status?: How often do you talk on the phone with friends or family?: three or more times per week How often do you get together with friends or relatives?: three or more times per week How often do you attend congregational or episcopalian services?: decline to answer Do you belong to any clubs or organized social groups?: decline to answer Panel score (0-1 are the most socially isolated patients): 2 What type of physical activity do you participate in: walking Duration: 15-30 minutes/day Frequency: daily Adrianna/Mosque: Anabaptist Special adrianna needs: No Agree to transfusion: Yes Seatbelt use: always Helmet use: Yes Helmet use: always Drive intox or ride w/intox jitney driver: No Working smoke detector in home: Yes Carbon monox detector in home: Yes Firearms in home: Yes Firearms unloaded and locked: No Do you feel safe at home: Yes Do you feel safe in your relationship?: Yes Victim of physical abuse: No Victim of emotional abuse: No Victim of sexual abuse: No Would you like helpful sources: No SDOH(Care Management) Screening Will the Patient Participate in the Screening?: Unable to obtain
[2024-06-21] MEDS: DOXYCYCLINE 100 MG in Normal Saline 100 ML IVPB ×2 (10:45→21:00)
[2024-06-21] MEDS: Glucosamine/Chondroitin CAP 1 CAP PO ×2 (10:45→21:20)
[2024-06-21 11:14] LABS: Bilirubin, Direct 0.3 mg/dL (0.0-0.2)
--- NOTE | 2024-06-21 12:15 | PT.INIE ---
PT Notes Visit Reasons: Elevated Troponin, New EKG Changes, Chest Pain Inpatient Physical Therapy Evaluation Date: 06/21/2024 Referring Doctor: Ursula Mason PT Orders: PT CONSULT: Eval for assistive device Precautions: IV right upper extremity, left visual deficits Patient Profile/Admitting Diagnosis: This 74-year-old male patient with a past medical history of coronary artery disease status post stenting at [facility] a month ago with NSTEMI, HFrEF with an LVEF of 32%, CVA with short-term memory lapse presented to the ED at [facility] today for complaints of decreased energy and dizziness. . Episode of confusion reported around 5 AM this morning with noticing cold sweats. In the ED the initial EKG showed sinus rhythm rate [address] segment elevation in aVF and slightly more pronounced segment elevation in lead III, no ST segment depression at the time. Blood work was remarkable for initial troponin at 133, MCV at 99, absolute lymphocytopenia at 0.26, sodium at 134. Subsequent troponins was 113. Pulm consultation with [facility] cardiology, recommendation was given to keep the patient overnight and proceed with stress test/PMI and echocardiogram in the morning. Later in the emergency room the patient developed chest pain. A subsequent EKG showed slight elevation of ST segment in V1 and V2 as well as ST depression in V4, V5 and V6. The patient which he received nitro glycerin sublingual with resolution of chest pain. Aspirin and Plavix were also administered to the patient. Upon consulting [facility] cardiology team, STEMI criteria were not met as per consult. Repeated troponin showed a level of 82. Troponin to be repeated in 3 hours and trend. The hospitalist was consulted and the plan plan remains to admit the patient overnight for PMI and echocardiogram after discussion with Dr. Moran. The patient was admitted to the medical surgical floor with telemetry for evaluation and management of chest pain, elevated troponin and EKG changes. PFSH All Active Problems Elevated troponin (Acute) Nausea & vomiting (Acute) Fever (Acute) Weakness (Acute) Myocardial injury (Acute) Atrial fibrillation (Chronic ~03/2024) ASCVD (arteriosclerotic cardiovascular disease) (Chronic) [place] 1987 s/p CABG x 3 in 2002 and SYED to left circumflex artery in 2013. NSTEMI 03/2024 s/p SYED to LAD.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Essential hypertension (Chronic) Hyperlipidemia (Chronic) Psoriasis (Chronic) Prediabetes (Chronic) Sensorineural hearing loss, bilateral (Chronic) Bilateral hearing aidsDiverticulosis of colon (Chronic) Medical History Tubular adenoma of colon CVA (cerebral vascular accident) (~10/2022) And 1997Myocardial infarction (~1987) Herpes zoster Smoker Transient ischemic attack Surgical History S/P coronary artery stent placement (04/24/24) SYED to LCX 2013, SYED to LAD 2023Status post appendectomy Status post three vessel coronary artery bypass (~2002) Status post tonsillectomy Status post vasectomy Subjective: Patient reports he is very hot. Patient reports he needs verbal cues for direction (left to right) due to visual deficits related to post CVA. Patient denies chest pain, headache, dizziness and nausea. Home situation: Lives with in one-story home steps to enter with 1 rail. Patient was attending cardiac rehab program as an outpatient 3 times per week until hospitalization. Patient ambulates without device independently. Independent ADLs assists with meal preparation and how making.. He reports no DME at home. Objective: General Observation: Male supine in bed with IV fluids in place. Mental Status: Alert and oriented x 3 Pain: Denies Vital Signs: pre:115/63, HR: 76 sat 95% on RA post: 118/65 HR 74 sat 94% on RA ROM: Right Upper Extremity: WNL Left Upper Extremity: WNL Right Lower Extremity: WNL Left Lower Extremity: WNL Strength: (No MMT due to cardiac status) Right Upper Extremity: >/= to 3/5 Left Upper Extremity: >/= to 3/5 Right Lower Extremity: >/= to 3/5 Left Lower Extremity: >/= to 3/5 Sensation: Intact Coordination: Diminished/decreased accuracy left upper and lower extremity rapid alternating movements, [id number], [id number] Bed Mobility/Transfers: Min assist supine to sit for trunk CGA sit to stand cues for hand placement Gait: FWW CGA 150 feet cues for direction Deviation: Drift to the left; difficulty avoiding objects on the left with walker Stairs: 5 steps to rails CGA step to pattern Balance: Static Sitting: Normal Dynamic Sitting: Normal Static Standing: Fair plus Dynamic Standing: Fair plus Special Tests: Mobility Limitations Standardized Measure [facility] AM-PAC 6 clicks Basic Mobility Inpatient Short Form: Raw Score: 22 CMS Score: 20.91% disability Informed Consent/Education: Patient instructed in purpose of PT consult and plan of care. Assessment: Patient is a 74year old male referred to physical therapy services with the diagnosis of fever, elevated troponins. Patient presents with clinical signs and symptoms consistent with admitting diagnosis, as demonstrated by the following impairment level findings: 1. Decreased strength to major muscle groups BUE/LE 2. Impaired standing balance 3. Impaired activity tolerance 4. Impaired coordination left upper and lower extremity 5. Visual deficits on the left Impairments are contributing to the following functional limitations: 1. AMPAC score. 2. Decline in bed mobility skills 3. Defined and transfer skills 4. Difficulty with ambulation without assistive device and physical assist 5. Increased completion time for mobility and ADL performance 6. Difficulty with managing steps alone safely Patient is assessed as a Moderate 25877 complexity based on the following: History: Patient is 74-year-old man with multiple comorbidities including CVA , ASCVD, A-fib, HTN, left visual deficits. Examination: as above Presentation: evolving Decision Making: mod Goals: Goals X1 week 1. Supine-Sit independent 2. Sit-Supine independent 3. Sit-Stand independent 4. Stand-Sit independent 5. Bed-Chair independent with least restrictive device 6. Chair-Bed independent with least restrictive device 7. Gait supervision with least restrictive device > 200 feet 8. Stairs 5 steps with rail supervised 9. Independent with home exercise program Plan of Care/Treatment Plan: 1-2x/day, 7 days/week x 1 week. Plan of care has been reviewed with the QUALITY TECHNICIAN providing the service under Physical Therapy direction. Initiate Physical Therapy intervention for strengthening, bed mobility, transfers, gait, stairs, balance training, use of assistive device. DISCHARGE RECOMMENDATIONS: When medically appropriate patient would benefit from: [X] Home with services HH PT versus return to cardiac rehab program TREATMENT CODE/TIME: 64871, 71059, [id number] Please sign an return this page within 30 days if you agree with the above POC. Thank you! Physician Signature [facility]
--- NOTE | 2024-06-21 17:01 | NUR.NOTE ---
Upon rounding, patient's family verbalized concern that patient has not been sleeping much since admission. Patient is A/O x 4 but per family, patient has not been himself, is restless and impulsive and per nurse report this AM, patient had been disoriented this AM. 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 Received new order for melatonin. See MAR and orders for detail.
[2024-06-21] MEDS: Atorvastatin 40 MG TAB 80 MG PO (20:53)
[2024-06-21] MEDS: Melatonin 3 MG TAB PO (20:54)
[2024-06-21] MEDS: Normal Saline Flush 10 ML SYR IVP (20:54)
[2024-06-22 02:43] VITALS: BP 104/58; PULSE 61; RESP 16; TEMP 36.6; O2SAT 95
[2024-06-22 06:49] LABS: HCT 44.4 % (40.0-50.0); HGB 14.9 g/dL (13.5-17.5); MCH 33.3 pg (27.0-33.0); MCHC 33.6 % (32.0-36.0); MCV 99 fL (80-95); RBC 4.47 10^6/uL (4.36-5.78); RDW 12.4 % (11.8-14.1); WBC 2.83 10^3/uL (4.4-10.8)
[2024-06-22 07:15] LABS: ALT 62 U/L (16-63); AST 91 U/L (15-37); Albumin 2.8 g/dL (3.4-5.0); Alkaline Phosphatase 88 U/L (46-116); Anion Gap 8.5 mmol/L (3-11); BUN 19 mg/dL (7-18); Bilirubin, Total 1.11 mg/dL (0.2-1.0); CO2 27.5 mmol/L (21.0-32.0); CREATININE 0.9 mg/dL (0.70-1.30); Calcium 8.9 mg/dL (8.5-10.1); Chloride 99 mmol/L (98-107); Estimated GFR 88.51 (mL/min/1.73m2); Glucose 83 mg/dL (74-106); Potassium 3.8 mmol/L (3.5-5.1); Sodium 135 mmol/L (136-145); Total Protein 7.3 g/dL (6.4-8.2)
[2024-06-22] MEDS: Pantoprazole 40 MG TABCR PO (07:20)
[2024-06-22 07:24] VITALS: BP 109/65; PULSE 66; RESP 16; TEMP 36.7; O2SAT 93
[2024-06-22 07:32] LABS: Absolute Lymphocyte Count 1.05 10^3/uL (1.2-3.4); Absolute Monocyte Count 0.23 10^3/uL (0.1-0.8); Absolute Neutrophil Count 1.56 10^3/uL (1.2-6.7); Atypical Lymphocytes % 5 %; Bands % 2 %
[2024-06-22 07:33] LABS: Platelet Count 76 10^3/uL (130-400)
[2024-06-22 07:34] LABS: Diff Comment Manual Differential; RBC Morphology Normal
[2024-06-22] MEDS: Glucosamine/Chondroitin CAP 1 CAP PO ×2 (08:20→20:15)
[2024-06-22] MEDS: Clopidogrel 75 MG TAB PO (08:21)
[2024-06-22] MEDS: Loratidine 10 MG TAB PO (08:21)
[2024-06-22] MEDS: Apixaban 5 MG TAB PO ×2 (08:21→20:15)
[2024-06-22] MEDS: Metoprolol CR 50 MG TABCR PO (08:21)
[2024-06-22] MEDS: DOXYCYCLINE 100 MG in Normal Saline 100 ML IVPB ×2 (08:21→22:06)
[2024-06-22] MEDS: Aspirin 81 MG CHEW PO (08:21)
[2024-06-22] MEDS: Triamterene 37.5/HCTZ 25 CAP PO (08:21)
[2024-06-22] MEDS: Multivitamin TAB 1 TAB PO (08:21)
[2024-06-22] MEDS: Normal Saline Flush 10 ML SYR IVP (08:22)
[2024-06-22 11:30] VITALS: BP 116/80; PULSE 70; RESP 15; TEMP 36.3; O2SAT 96
--- NOTE | 2024-06-22 11:45 | PTTR_ITS ---
PT Notes Visit Reasons: Elevated Troponin, New EKG Changes, Chest Pain Inpatient Physical Therapy Treatment Note [facility] Date: 06/22/2024 PRECAUTIONS: Activity as tolerated SUBJECTIVE: Patient reports sleeping well feeling much better than yesterday. Patient asking if he can take a shower (nursing notified) OBJECTIVE: Alert and oriented male supine in bed eager to walk and return home. Telemetry in place; IV line,?hearing aids in place ? PAIN: Denies VITALS: ? Monitored by telemetry Therapeutic Activities ([id number]): Direct one-on-one instruction in dynamic activities to improve functional performance. ? BED MOBILITY/TRANSFERS? Rolling L/R: Independent Supine-sit: Independent? Sit-supine: Independent? Sit-stand: Independent ? Stand-sit: Independent ? Bed-Chair: Independent?with and without device ? Chair-bed: Independent with and without device Dynamic balance: reaching floor item retrieval without upper extremity support; item transport during functional mobility, Provided skilled cues and instruction on performance and technique throughout. Gait Training ([id number]): Direct one-on-one instruction and skilled instru ction in: [x] turning and movement with proper form [x] Provided verbal cues for equipment management and technique [x] Patient education regarding pacing and breathing techniques to maximize activity tolerance? GAIT? Assistive Device: FWW 1st trial? ?; 2nd No device ? Weight bearing: full Assist: distant supervision cues for directionality turning with FWW? Distance:?200 feet 1st trial; 2nd trial? ?170 feet x 2 ?including turns and obstacle management ? Deviation: reciprocal pattern? STAIRS:5 steps without rail SBA reciprocal pattern ascending ; step to pattern descending? ASSESSMENT: Patient demonstrates significant improvement in activity tolerance and ability to negotiate objects on the left as compared to initial evaluation. Demonstrates ability to ambulate without device and perform stairs with superv ision. Patient is functionally appropriate for discharge to home when medically stable. PLAN: continue strengthening functional mobility and balance until discharge to home TREATMENT CODE/TIME: 42120, 28395 /1053?1120 DISCHARGE RECOMMENDATION: Home and return to Cardiac Rehab program when medically appropriate
--- NOTE | 2024-06-22 11:49 | PDOC.CMPRO ---
Date of service: 06/22/24 Time of Service: 11:49 Care Management Progress Note Progress Note Text Progress Note Text: Pan was sitting up on the edge of his bed when CM met with him. He was finishing up his lunch, and his , Gabrilela was visiting. They stated that Alphonse met with the provider earlier, who is reaching out [place] [facility], which will help determine his discharge plan. Alphonse stated that he is hoping to be able to return home today. He reported that he is feeling much better today. CM will continue to follow. Discharge Potential Discharge Needs: [place] [place] and PCP F/U Appt Anticipated Barriers to Discharge: None Identified Patient/Family Education Needs: Review discharge instructions, discuss Ask Me Three Transportation: Private vehicle Plan: Anticipate Pan will return home once medically cleared. His will drive him home via private vehicle. He will follow up with his PCP and discharge plan of care. CM will continue to follow. SDOH(Care Management) Screening Will the Patient Participate in the Screening?: Unable to obtain
--- NOTE | 2024-06-22 12:21 | RT.EKG_ITS ---
APPROVED REPORT Exam: Resting ECG Reason for Exam: Serial EKG; chest pain Patient Location: I HR:68 bpm ECG Measurements Heart Rate 68 AXIS KS 193 P 33 QRSd 106 QRS 20 QT 396 T 58 QTc 422 Conclusion Sinus rhythm...normal P axis, V-rate 50- 99 Ventricular premature complex...V complex w/ short R-R interval Left atrial enlargement...P, P'>60mS, <-0.15mV V1
[2024-06-22 15:25] VITALS: BP 124/74; PULSE 64; RESP 16; TEMP 36.6; O2SAT 95
--- NOTE | 2024-06-22 16:08 | PHA.REVIEW2 ---
Pharmacy Admission Review Admission Clinical Review Admission Pharmacy Review: Discharge planning issues (Acute) Elevated troponin (Acute) Nausea & vomiting (Acute) Fever (Acute) Weakness (Acute) Myocardial injury (Acute) Tetanus Vaccines and Toxoid (Tetanus Vaccines \T\ Toxoid) Allergy (Unknown, Verified 06/20/24 11:01) LARGE LOCAL REACTION oxycodone Adverse Reaction (Intermediate, Verified 06/20/24 11:01) HALLUCINATIONS ezetimibe Adverse Reaction (Verified 06/20/24 11:01) INTOLERANT CAT HAIR Allergy (Mild, Uncoded 06/20/24 11:01) Wheezing DUST Allergy (Unknown, Uncoded 06/20/24 11:01) Wheezing POLLEN EXTRACTS Allergy (Unknown, Uncoded 06/20/24 11:01) Wheezing Resuscitation Status Full Code Height 5 ft 5 in Weight 70.1 kg Pharmacy Admission Review Renal Dosing Renal Dosing: BUN 19 mg/dL (7-18) H 06/22/24 06:28 Creatinine 0.9 mg/dL (0.70-1.30) 06/22/24 06:28 Medications needing adjustments: Reviewed (CrCl 62.3 mL/min, BUN increased from 18) List of meds needing interventions: Current medications are okay Anticoagulation Anticoagulation: Hgb 14.9 g/dL (13.5-17.5) 06/22/24 06:28 Hct 44.4 % (40.0-50.0) 06/22/24 06:28 Plt Count 76 10^3/uL (130-400) L 06/22/24 06:28 Creatinine 0.9 mg/dL (0.70-1.30) 06/22/24 06:28 DVT Prophylaxis: Reviewed (PLT decreased from 84) Medications: Apixaban (5mg PO BID) Relevant Labs Relevant Labs: Sodium 135 mmol/L (136-145) L 06/22/24 06:28 Potassium 3.8 mmol/L (3.5-5.1) 06/22/24 06:28 Chloride 99 mmol/L (98-107) 06/22/24 06:28 Magnesium 2.4 mg/dL (1.8-2.4) 06/21/24 06:25 Electrolytes, C-Reactive P, ESR: Reviewed (Na increased from 133, AST/ALT increaexd from 68/51 to 91/62) Cardiac Review Cardiac Review: Troponin I 121 ng/L (< or =60) H* 06/21/24 06:25 BP, HR, EF%: Reviewed (HR and BP WNL) List meds needing interventions: Current orders for: metoprolol XL 50mg daily and triamterene/HCTZ 37.5mg/25mg once daily QTc Review QTc: Reviewed (422 from 06/22/24) IV to PO Switch IV Medications: Reviewed (doxycycline) Home Meds Home Med List reviewed: Reviewed Relevent Home Meds Not ordered & why?: magnesium chloride Current Meds Current Medication Order Review: Intervened Comments: Added IV admission order set Pharmacy Antibiotic Review Relevant Labs: WBC 2.83 10^3/uL (4.4-10.8) L 06/22/24 06:28 Temperature 36.6 C Temperature 36.3 C Temperature 36.7 C Microbiology 06/20/24 19:16 Blood Culture - Preliminary Blood NO GROWTH 24 HOURS 06/20/24 19:00 Blood Culture - Preliminary Blood NO GROWTH 24 HOURS Pharmacy Antibiotic Activity: C/S review and Reviewed, no change Comments: Patient is on doxycycline 100mg q12h, day 2. Blood cultures showing no growth. Last elevated temperature was 37.8 C yesterady at 1742.
--- NOTE | 2024-06-22 16:33 | W.PM.PROGNOT ---
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 (3) Atrial fibrillation: Status: Resolved Assessment and plan: History of now in SR HR 68, occasional PVC's and Bigeminy Continue metoprolol (4) ASCVD (arteriosclerotic cardiovascular disease): Status: Chronic Assessment and plan: Stent a month ago at [facility] On Eliquis and Plavix On Statin ASA 81 mg (5) History of stroke: Status: Chronic Assessment and plan: Memory is poor (6) Hyperlipidemia: Status: Chronic Assessment and plan: Continue home statin dose (7) Nausea & vomiting: Status: Acute Assessment and plan: PRN ondansetron (8) Elevated troponin: Status: Acute Assessment and plan: No chest pain [facility] doubts this is ACS (discussed in depth with Kosta Albrecht PA-C Treat fever, associated symtoms [facility] cardiology recommended Echocardiogram and MPI completed EF 40-50% by echo (9) Discharge planning issues: Status: Acute Assessment and plan: Home when stable Subjective Subjective Patient reports: no new complaints, feels better, tolerating liquids well and tolerating a regular diet; denies diarrhea, nausea, vomiting or shortness of breath Interval history since last seen: Semi fowlers in bed, awake, alert, no complaints. at the bedside, reports patient has memory problems and she would like all communication Exam Const General: cooperative and no acute distress HENMT Mouth: moist mucous membranes Eyes Conjunctivae: normal conjunctivae Sclera: normal sclerae Neck Neck: trachea midline Resp Auscultation: clear to auscultation bilaterally, no rales, no rhonchi and no wheezes Cardio Rate: regular rate and not tachycardic Rhythm: regular rhythm Heart Sounds: no murmurs GI Palpation: soft, not firm, no guarding, no masses, not rigid and nontender Skin General skin exam: no rashes or lesions noted Neuro General: patient alert, patient awake, patient oriented x3 and tone normal Extrem General: no calf tenderness and no edema Psych Appearance: grossly normal Mental Status: mental status grossly normal Objective Last Vital Signs Temp 36.6 C 06/22/24 15:25 Pulse 64 06/22/24 15:25 Resp 16 06/22/24 15:25 BP 124/74 06/22/24 15:25 Pulse Ox 95 06/22/24 15:25 Laboratory Results - last 24 hr 06/22/24 06:28 WBC 2.83 L RBC 4.47 Hgb 14.9 Hct 44.4 MCV 99 H MCH 33.3 H MCHC 33.6 RDW 12.4 Plt Count 76 L MPV 11.0 Immature Gran % 0.0 Neutrophils % 53.0 Band Neutrophils % 2 Lymphocytes % 32.0 Atypical Lymphs % 5 Monocytes % 8.0 Eosinophils % 0.0 Basophils % 0.0 Nucleated RBC % 0.0 Absolute Neutrophils 1.56 Absolute Lymphocytes 1.05 L Absolute Monocytes 0.23 Absolute Eosinophils 0.00 Absolute Basophils 0.00 RBC Morphology Normal Sodium 135 L Potassium 3.8 Chloride 99 Carbon Dioxide 27.5 Anion Gap 8.5 BUN 19 H Creatinine 0.9 Est GFR (CKD-EPI 2020) 88.51 Glucose 83 Calcium 8.9 Total Bilirubin 1.11 H AST 91 H ALT 62 Alkaline Phosphatase 88 Total Protein 7.3 Albumin 2.8 L Time Spent with Patient Time Spent with Patient: >50 minutes Time was spent: preparing to see the patient(eg.review tests), obtaining and/or reviewing separately otained hiistory, ordering medications,tests, procedures, referring, communicating with other health manager long term care, indepentently interpreting results, counseling the patient and care coordination
[2024-06-22] MEDS: cefTRIAXone 1 GM/50 ML BAG IVPB (17:44)
--- NOTE | 2024-06-22 17:48 | DI.RAD_ITS ---
Exam(s) XR CHEST 2V PA LATERAL EXAM: XR CHEST 2V PA LATERAL CLINICAL HISTORY: Cough/fever TECHNIQUE: 2D digital imaging was performed. Two views. COMPARISON: CR,XR XR PORTABLE CHEST AP from 03/31/2024 CR XR PORTABLE CHEST AP from 04/20/2024 CR XR PORTABLE CHEST AP from 06/20/2024 CT,NM,TMT NM MPI REST STRESS GRP from 06/21/2024 FINDINGS: HEART: Dilated, unchanged. Status post CABG. Aorta: Not dilated. PULMONARY VASCULATURE: Normal. MEDIASTINUM: Unremarkable. LUNGS: Clear. PLEURAL SPACE: No pleural effusion or pneumothorax. BONE:Sternal wires. SOFT TISSUES: Unremarkable. IMPRESSION: No acute abnormality. DATA REPOSITORY: RADIATION DOSE DELIVERED:
[2024-06-22] MEDS: Benzonatate 100 MG CAP PO ×2 (18:36→22:05)
[2024-06-22 19:11] VITALS: BP 114/70; PULSE 69; RESP 15; TEMP 36.6; O2SAT 98
[2024-06-22 19:27] LABS: Hepatitis A Antibody IgM Negative (Negative); Hepatitis B Core Antibody Negative (Negative); Hepatitis B surface Ag Negative (Negative); Hepatitis C Ab w Rflx HCV PCR Negative (Negative)
[2024-06-22] MEDS: Atorvastatin 40 MG TAB 80 MG PO (20:14)
[2024-06-22] MEDS: Melatonin 3 MG TAB PO (20:15)
[2024-06-22 23:01] VITALS: BP 102/58; PULSE 60; RESP 15; TEMP 36.8; O2SAT 95
[2024-06-23] VITALS (57 sets, daily range): BP systolic 61–119; BP diastolic 40–76; PULSE 57–94; RESP 15–26; TEMP 36.3–36.9; O2SAT 93–98
--- NOTE | 2024-06-23 06:00 | RT.EKG_ITS ---
APPROVED REPORT Exam: Resting ECG Reason for Exam: back in A [facility] Patient Location: I HR:76 bpm ECG Measurements Heart Rate 76 AXIS ID [id number] P [id number] QRSd 104 QRS 21 QT 383 T 57 QTc 431 Conclusion Atrial fibrillation...V-rate 58- 86, irreg A-activity Ventricular premature complex...V complex w/ short R-R interval
[2024-06-23] MEDS: Metoprolol 25 MG TAB PO (06:40)
[2024-06-23 07:01] LABS: HCT 42.5 % (40.0-50.0); HGB 14.3 g/dL (13.5-17.5); MCH 32.9 pg (27.0-33.0); MCHC 33.6 % (32.0-36.0); MCV 98 fL (80-95); MPV 11.4 fL (8.0-11.0); RBC 4.35 10^6/uL (4.36-5.78); RDW 12.3 % (11.8-14.1); RDW-SD 44.3 fL; WBC 5.66 10^3/uL (4.4-10.8)
[2024-06-23] MEDS: Pantoprazole 40 MG TABCR PO (07:10)
[2024-06-23 07:11] LABS: Anion Gap 8.7 mmol/L (3-11); BUN 24 mg/dL (7-18); CO2 27.3 mmol/L (21.0-32.0); Chloride 100 mmol/L (98-107); Glucose 99 mg/dL (74-106); Magnesium 1.9 mg/dL (1.8-2.4); Potassium 3.7 mmol/L (3.5-5.1); Sodium 136 mmol/L (136-145)
[2024-06-23 07:21] LABS: Troponin I 791 ng/L (< or =60)
[2024-06-23 07:52] LABS: Absolute Eosinophil Count 0.06 10^3/uL (0.0-0.7); Absolute Lymphocyte Count 3.17 10^3/uL (1.2-3.4); Absolute Monocyte Count 0.68 10^3/uL (0.1-0.8); Absolute Neutrophil Count 1.75 10^3/uL (1.2-6.7); Atypical Lymphocytes % 7 %; Platelet Count 86 10^3/uL (130-400)
[2024-06-23 07:53] LABS: Diff Comment Manual Differential; RBC Morphology Normal
[2024-06-23] MEDS: Clopidogrel 75 MG TAB PO (08:36)
[2024-06-23] MEDS: Multivitamin TAB 1 TAB PO (08:37)
[2024-06-23] MEDS: Glucosamine/Chondroitin CAP 1 CAP PO (08:37)
[2024-06-23] MEDS: Apixaban 5 MG TAB PO (08:37)
[2024-06-23] MEDS: Loratidine 10 MG TAB PO (08:37)
[2024-06-23] MEDS: Aspirin 81 MG CHEW PO (08:37)
[2024-06-23] MEDS: DOXYCYCLINE 100 MG in Normal Saline 100 ML IVPB (08:38)
[2024-06-23] MEDS: Normal Saline Flush 10 ML SYR IVP ×2 (08:38→09:54)
[2024-06-23] MEDS: Triamterene 37.5/HCTZ 25 CAP PO (08:38)
--- NOTE | 2024-06-23 08:58 | PGE_ITS ---
Date of Service Date of service: 06/23/24 Time of Service: 08:58 Assessment and Plan Assessment and plan (1) Non-ST elevation MS (NSTEMI): Status: Inactive Assessment and plan: Troponin up to 791- value qualifying for NSTEMI with the symptomatology and history Subsequent 656 at 0935 AM but will repeat at 12:30 PM as the patient continued to have chest pain not resolved with nitroglycerin SL with episode of hypotension- resolving s/p 100 cc NS and 15 mintues . [facility] consulted -Spoke to AMADO Albrecht : Discussion including urgent cath VS ICU CVCC -Subsequent discussion with Dr. Crane cardilogy fellow resulted in acceptance under Dr. Wilde of the patient to the ICU CVCC- bed pending -recommendation for plavix load 600 mg, ASA 324, MSO4 for chest pain, no heparin drip, no IVF -Nitro for further chest pain with consideration for vapressors if hypotension reoccured Patient transferred to ICU her at [facility] pending transfer On Eliquis home dose On Plavix 75 mg daily -supplemented to meet recommendation On ASA 81- supplemented to meet recommendation Morphine PRN chest pain (2) Elevated troponin: Status: Acute Assessment and plan: Chest pain wanning and waxing with elevation in troponins on admission and again this AM with chest pain; see NSTEMI point. [facility] cardiology recommended Echocardiogram and MPI completed EF 40-50% by echo , questionable posterior wall event confirmed with MPI as poster0-lateral wall infarction Echocardiogram conclusion: Normal left ventricular wall thickness and chamber size. Left ventricular end- diastolic dimension is 5.7 cm Ejection fraction is 45 to 50% Inferior posterior wall motion abnormalities are suggested Normal biatrial size Compared to an echocardiogram from March at [facility], LV systolic function has improved MPI Conclusion Technically suboptimal study LV is dilated, EF is calculated at 27%. The basal posterolateral wall appears infarcted Myocardial perfusion does not demonstrate any definite ischemia but is suboptimal (3) Fever: Status: Acute Assessment and plan: WBC 2.83 Plt 76 -LFT's added to AM lab- normal except for sight elevation in AST -tick and bloodborne disease panel pending Continue doxycycline Cough yesterday -improved today, fever 06/21 at 17:42- remains afebrile - CXR showed No acute abnormality on 06/22 -Continue ceftriaxone blood culture - negative at 48 h UA negative CBC and CMP in AM (4) Weakness: Status: Acute Assessment and plan: Increased this AM with episode of chest pain and hypotension with diaphoresis s/p nitro SL PT consult completed, please see notes- Home with HH PT VS cardiac rehab (5) Atrial fibrillation: Status: Resolved Assessment and plan: Initially in NSR - Atrial fibrillation this AM at 0530, remains in MVR HR 64-[address] segment elevation or depression, + PVC Metoprolol succinate 50 mg Q 24 hours changing to metoprolol tartrate 12.5 mg PO Q 6 hours hold for HR < 60 (6) ASCVD (arteriosclerotic cardiovascular disease): Status: Chronic Assessment and plan: Stent a month ago at [facility] Continue Eliquis and Plavix, Statin ASA 81 mg was stopped on by PCP then resumed this visit, will continue (7) History of stroke: Status: Chronic Assessment and plan: Memory is poor ,no residual focal deficits (8) Hyperlipidemia: Status: Chronic Assessment and plan: on home statin dose (9) Nausea & vomiting: Status: Acute Assessment and plan: PRN ondansetron No further episodes X 48 hours (10) Discharge planning issues: Status: Acute Assessment and plan: [facility] transfer pending bed to ICU CVCC. discussed with Dr. Downey Subjective Subjective Patient reports: voiding w/o difficulty, afebrile (no further headaches X 24 hours +, no fever X 24 hours +) and other (Persistent left sided visceral- liked chest pain irradiating to left neck, jaw, and arm, wanning and waxing with nitro intake ; diaphoresis, weakness); denies nausea, vomiting or shortness of breath Exam Narrative Exam Narrative: Constitutional The patient in bed, ill looking, increased palor with increased chest pain intensity and radiation to left arm and left inferior mandibular area as the patient became hypotensive s/p one nitro 0.4 SL HENMT: Facial structures with normal appearance Neuro:alert and oriented X 3, non-focal Resp: Clear lung bilaterally Cardio: A-fib MRV this AM at 05:30, HR 64-71 throughout the AM regular rhythm, S1, S2, no murmur, capillary refill<3 sec., bilateral radial and pedal positive GI: Abdomen is not distended, soft and non tender, bowel sounds are present Integumentary:previous scab like insect bite to left glut. Psych: RASS 0, congruent mood and normal affect. Objective Last Vital Signs Temp 36.6 C 06/23/24 07:45 Pulse 73 06/23/24 07:45 Resp 18 06/23/24 07:45 BP 100/54 L 06/23/24 07:45 Pulse Ox 96 06/23/24 07:45 Laboratory Results - last 24 hr 06/23/24 05:55 WBC 5.66 RBC 4.35 L Hgb 14.3 Hct 42.5 MCV 98 H MCH 32.9 MCHC 33.6 RDW 12.3 Plt Count 86 L MPV 11.4 H Immature Gran % See Differential Neutrophils % 31.0 Lymphocytes % 49.0 Atypical Lymphs % 7 Monocytes % 12.0 Eosinophils % 1.0 Basophils % 0.0 Nucleated RBC % 0.0 Absolute Neutrophils 1.75 Absolute Lymphocytes 3.17 Absolute Monocytes 0.68 Absolute Eosinophils 0.06 Absolute Basophils 0.00 RBC Morphology Normal Sodium 136 Potassium 3.7 Chloride 100 Carbon Dioxide 27.3 Anion Gap 8.7 BUN 24 H Creatinine 1.0 Est GFR (CKD-EPI 2020) 78.00 Glucose 99 Calcium 9.0 Magnesium 1.9 Troponin I 791 H* Time Spent with Patient Time Spent with Patient: >50 minutes Time was spent: preparing to see the patient(eg.review tests), obtaining and/or reviewing separately otained hiistory, ordering medications,tests, procedures, referring, communicating with other health personal caregiver, indepentently interpreting results, counseling the patient and care coordination
--- NOTE | 2024-06-23 09:30 | RT.EKG_ITS ---
APPROVED REPORT Exam: Resting ECG Reason for Exam: new chest pain Patient Location: I HR:76 bpm ECG Measurements Heart Rate 76 [place] [id number] P [id number] QRSd 101 QRS -14 QT 394 T 66 QTc 444 Conclusion Atrial fibrillation...V-rate 80- 81, irreg A-activity Ventricular premature complex...V complex w/ short R-R interval Probable left ventricular hypertrophy...(RaVL+SV3)xQRSd >280 Inferior infarct, old...Q >35mS, II III aVF
[2024-06-23 10:23] LABS: Troponin I 656 ng/L (< or =60)
[2024-06-23] MEDS: Aspirin 81 MG CHEW 162 MG CH (11:46)
[2024-06-23] MEDS: Clopidogrel 300 MG TAB 525 MG PO (11:46)
--- NOTE | 2024-06-23 12:36 | PDOC.CMDIS ---
Date of service: 06/23/24 Time of Service: 12:36 LACE Index Scoring Tool Questions: Length of Stay (in days): 3 Was the patient admitted via the E.D.?: Yes Comorbidities: Previous M.I. E.D. Visits: 3 Answers: Total Score: 10 Risk of Readmission: High Risk Care Management Discharge Plan Reason for Hospitalization: NSTEMI Discharge Plan: Transfer to [facility] Cardiology ICU pending bed availability. 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 Patient/Family Education Needs: Review transfer instructions, ask me three. SDOH Health Related Social Needs: No Data to Display Referrals and interventions: pt reports memory impairment
--- NOTE | 2024-06-23 12:59 | CE_ITS ---
Date of service: 06/23/24 Time of Service: 11:00 Event Note: On sign out, recurrence of atrial fibrillation reported around 5:30 am. Troponin at that point returned higher, 791. EKG confirms Afib, no STEMI. Metoprolol changed from 50mg succinate to 25mg TID tartrate. At around 10:30 am I was called because patient had left sided chest to neck and arm pain, was pale. Repeat EKG again did not show significant pain, vital signs were stable until he was given NTG. At that point he became diaphoretic and blood pressure dropped to 70s systolic. Rapid response called. He remained alert but his pain continued. He was initially started on IV fluids, but this was stopped after 100ml. His blood pressure came up after 20-30 minutes without additional intervention. At that point he still had 3/10 chest pain. His lung remained clear and cardiac exam unchanged, irregularly irregular, HR 50s-70s. He was transferred to the ICU for closer monitoring. [facility] cardiology consulted and they did accept the patient. Given he has been on apixaban, no heparin GGT started. Additional ASA and clopidogrel was given to fully load him. Bed available and transfer pending now, see Ursula Mason's discharge summary. Time Spent with Patient Time spent in critical care(minutes): 60 Time Spent Included: Coordination of care, Chart review, Documenting critically ill care, Time at immediate bedside, Discussing critically ill care with other medical staff and Discussing Hx and/or treatment with family
[2024-06-23 13:03] LABS: Troponin I 628 ng/L (< or =60)
--- NOTE | 2024-06-23 14:13 | W.PM.DS.N ---
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 (4) Weakness: Status: Acute (5) Atrial fibrillation: Status: Resolved (6) ASCVD (arteriosclerotic cardiovascular disease): Status: Chronic (7) History of stroke: Status: Chronic (8) Hyperlipidemia: Status: Chronic Discharge Plan Disposition Patient Disposition: Transfer-Acute Inpatient Care Condition: Serious Discharge Details Reason For Visit: Elevated Troponin, New EKG Changes, Chest Pain Admit Date/Time: 06/20/24 17:16 Admit Provider: Tristin Plummer Attending Provider: Tristin Plummer Primary Care Provider: Syeda Singh Hospital Course Hospital Course: This 74 years old male patient with a past medical history of coronary artery disease status post CABG in 2002, stenting in 2013 and to [facility] on 04/23/2024 at [facility] due to non-STEMI, HFrEF with an LV EF of 32% at the time, CVA with short-term memory loss, and atrial fibrillation on apixaban presented to the ED at [facility] on 06/20/2024 with complaints of decreased level of energy and dizziness, nausea, vomiting and a previous episode of diarrhea 3 days prior to presentation resolving with 1 dose of Imodium; no reported use of prior antibiotics recently. The spouse reported that the patient had an episode of confusion around 5 AM on the day of presentation as well as noticeable cold sweats. On arrival to the ED no further dizziness was reported. The patient denied abdominal pain, chest pain, fever, cough or shortness of breath beyond baseline. The patient reported having baseline shortness of breath when walking a certain distance. The initial EKG in the ED showed normal sinus rhythm with a rate of [address] segment elevation in aVF and slightly more pronounced segment elevation in lead III; no ST segment depression at the time. Blood work in the ED was significant for initial troponin of 133, MCV at 99, lymphopenia, sodium of 134. Subsequent troponin was 113. Cardiology consultation with [facility] with recommendation to keep the patient overnight and to proceed with stress test and echocardiogram in the morning initially. Later in the emergency room the patient developed left-sided chest pain. Subsequent EKG showed slight ST segment elevation in V1 and V2 as well as ST segment depression in V4 V5 and V6. The patient received nitroglycerin sublingual x 2 with resolution of his chest pain. Aspirin 324 and Plavix were also administered to the patient in the emergency room the patient was already on Apixaban. Upon further consultation with [facility] cardiology team, STEMI criteria were not deemed as met. Repeated troponin showed a level at 82, with plan to trend levels. The hospitalist was consulted and the plan remained to admit the patient overnight for stress test and echocardiogram as per discussion with [facility] [facility] cardiology. In the emergency room the patient developed another episode of nausea with position change and emesis status post dinner. During evaluation the patient denied dizziness, change in vision, chest pain, abdominal pain; oral temperature status with vomiting was 100.7, UA and blood culture added to the workup in the ED were pending. The patient reported a sick contact but upper respiratory viral panel results was negative. During the inpatient stay, the patient developed a fever overnight with Tmax at 38.6 with worsening lymphopenia, thrombocytopenia, and transaminitis as well as complaints of headaches. Treatment with doxycycline for anaplasmosis was initiated. Upon examination scab resembling an insect bite was noticed to the patient left buttock; family confirmed that patient has been outdoors in the jose wearing shorts. Tick panel and blood-borne pathogen laboratory work were ordered and pending. He was last febrile 06/21 and his headache and lymphopenia were improving on doxycycline, which should be continued. Echocardiogram was completed with the following conclusion: Normal left ventricular wall thickness and chamber size. Left ventricular end-diastolic dimension is 5.7 cm Ejection fraction is 45 to 50% Inferior posterior wall motion abnormalities are suggested Normal biatrial size Compared to an echocardiogram from March at [facility], LV systolic function has improved A cardiology consult was ordered and pending. MPI testing was completed with the following conclusion: Technically suboptimal study LV is dilated, EF is calculated at 27%. The basal posterolateral wall appears infarcted Myocardial perfusion does not demonstrate any definite ischemia but is suboptimal [facility] cardiology service was consulted and the provider discussed the case with AMADO or Emery on 06/22/2024 with recommendation to treat fever and associated symptoms and doubts as the ACS presentation. As the patient was developing cough, so ceftriaxone was added to cover possible community acquired pneumonia, though x-ray of the chest was completed without any acute findings. the patient did not need any oxygen supplementation. Blood cultures remained negative. On 06/23/2024 around 5 AM, the patient converted to atrial fibrillation with heart rate 64; repeat troponin was 791. [facility] was contacted for cardiology consult. Around 9:30 AM, the patient developed left-sided chest pain radiating to his left neck. Nitro 0.4 sublingual was administered and developed hypotension with BP around 70/50 with diaphoresis; EKG remained in atrial fibrillation with moderate ventricular response heart rate 76 without signs of ischemia?no ST elevation seen no ST segment elevation or depression observed. The patient received 100cc of NS, but this was stopped. The blood pressure returned to 119/64 after about 20 minutes. Chest pain remained ongoing at 3/10. The patient was transferred to ICU. Discussion ensued with [facility] for transfer for possible manufacturing laborer with cardiology AMADO Albrecht. Upon consultation with Dr. Crane social sciences chair the patient was accepted to the ICU CV[facility].. Recommendation for plavix load 600 mg, ASA 324, MSO4 for chest pain implemented; no heparin drip as patient on apixaban, no IVF recommended. Morphine recommended for further chest pain with consideration for vapressors if hypotension, though this was not needed. Subsequent troponins at 656 at 09:35 AM, then 628 at 12:30 PM; Home Meds and New Rx's Prescriptions: No Action loratadine [Allergy Relief (loratadine)] 10 mg tablet 10 mg PO DAILY magnesium chloride [Mag 64] 64 mg tablet,delayed release (DR/EC) 128 mg PO DAILY Qty: 180 4RF aspirin 81 mg tablet,delayed release (DR/EC) 81 mg PO DAILY atorvastatin 80 mg tablet 80 mg PO DAILY triamterene-hydrochlorothiazid 37.5-25 mg tablet 0.5 tab PO DAILY Qty: 45 3RF clopidogrel [Plavix] 75 mg tablet 75 mg PO DAILY Qty: 90 3RF nitroglycerin 0.4 mg tablet, sublingual 0.4 mg sublingual Q5-15M PRN (Reason: chest pain) Qty: 25 3RF Rx Instructions: 1 tablet every 5 minutes x 3 doses if needed for chest pain. Seek emergency services if not improving after first dose apixaban 5 mg tablet 5 mg PO BID Qty: 180 3RF [id number] C-Mn 1 EACH tablet 1 ea PO BID cinnamon bark (bulk) 1 GM powder 1 tsp PO DAILY Rx Instructions: MIXES WITH 1 TBSPN HONEY multivitamin [Daily Vitamin] 1 EACH tablet 1 tab PO DAILY metoprolol succinate 50 mg tablet extended release 24 hr 50 mg PO DAILY Qty: 90 3RF pantoprazole 40 mg tablet,delayed release (DR/EC) 40 mg PO DAILY Rx Instructions: per [facility] discharge celecoxib [Celebrex] 200 mg capsule 200 mg PO DAILY PRN (Reason: pain) Qty: 90 3RF honey flavor (bulk) 120 ML liquid 1 tsp PO QAM Discharge Instructions Activity:: Activity as Tolerated Equipment/Supplies:: No Equipment Needed Diet:: Low Sodium Discharge Orders Discharge Orders: Discharge Order (Routine); Ordered 06/23/24 Ordered By: Woo Downey Discharge Data Discharge Date/Time-TO BE ENTERED AT DEPARTURE: 06/23/24 13:20 DS: Summary Time Spent with Patient providing and/or coordinating discharge services: Greater than 30 minutes Status at Discharge Functional status at discharge: bed bound Overall status at discharge: patient is not back to baseline Mental Status: mental status grossly normal Speech and Movement: speech and movement normal Mood: congruent mood Affect: normal affect Quality:SDOH Health Related Social Needs: No Data to Display Referrals and interventions: pt reports memory impairment Exam Narrative Exam Narrative: The patient in bed, increased palor, clammy appearing during chest pain episode Neuro:alert and oriented X 3, non-focal Resp: Clear lungs bilaterally, normal effort Cardio: Irregularly irregular, HR 54-71, no murmur, capillary refill<3 sec., bilateral radial and pedal pulses equal and bounding. GI: Abdomen is not distended, soft and non tender, bowel sounds are present Integumentary:previous scab like insect bite to left glut not examined today Psych: congruent mood and normal affect. Psych Mental Status: mental status grossly normal Speech and Movement: speech and movement normal Mood: congruent mood Affect: normal affect DS: Data Vitals/I&O Vitals and I&O: Vital Signs Temperature 36.9 C 06/23/24 10:25 Temperature Source Temporal Artery Scan 06/23/24 10:25 Pulse 57 L 06/23/24 12:05 Pulse Rhythm Irregular 06/23/24 07:44 Pulse 85 06/23/24 12:20 Respiratory Rate 18 06/23/24 12:20 Respiratory Effort Normal, Non-Labored 06/23/24 10:25 Respiratory Depth Normal 06/23/24 10:25 Respiratory Pattern Tachypnea 06/23/24 10:25 Blood Pressure 114/57 L 06/23/24 12:05 Blood Pressure Mean 73 06/23/24 12:05 Blood Pressure Position Supine 06/23/24 10:25 Pulse Oximetry 97 06/23/24 11:30 Oxygen Delivery Method Room Air 06/23/24 10:25 Oxygen Flow Rate 0 06/23/24 10:25 Pain Level 0 06/23/24 13:54 Comment Patient remains in afib with PVC's 06/23/24 06:38 Intake & Output 06/22/24 06/23/24 06/23/24 23:59 11:59 23:59 Intake Total 150 / 350 Output Total 180 / 180 Balance 150 / 350 -180 / -180 Weight 68.4 kg Intake: IV 150 / 350 Output: Urine 180 / 180 Other: Urine Color Yellow Yellow Urine Appearance Clear Urine Odor None Comment patient up to bathroom and voiding without difficulty Voiding Methods Toilet Toilet Data Completed and Pending Labs on day of discharge: Labs from last 24 hours 06/23/24 06/23/24 06/23/24 15:30 12:30 09:55 WBC RBC Hgb Hct MCV MCH MCHC RDW Plt Count MPV Immature Gran % Neutrophils % Lymphocytes % Atypical Lymphs % Monocytes % Eosinophils % Basophils % Nucleated RBC % Absolute Neutrophils Absolute Lymphocytes Absolute Monocytes Absolute Eosinophils Absolute Basophils RBC Morphology Sodium Potassium Chloride Carbon Dioxide Anion Gap BUN Creatinine Est GFR (CKD-EPI 2020) Glucose Calcium Magnesium Troponin I Pending 628 H* 656 H* Hepatitis A IgM Ab Hep Bs Antigen Hep B Core Total Ab Hepatitis C Antibody 06/23/24 06/21/24 05:55 15:44 WBC 5.66 RBC 4.35 L Hgb 14.3 Hct 42.5 MCV 98 H MCH 32.9 MCHC 33.6 RDW 12.3 Plt Count 86 L MPV 11.4 H Immature Gran % See Differential Neutrophils % 31.0 Lymphocytes % 49.0 Atypical Lymphs % 7 Monocytes % 12.0 Eosinophils % 1.0 Basophils % 0.0 Nucleated RBC % 0.0 Absolute Neutrophils 1.75 Absolute Lymphocytes 3.17 Absolute Monocytes 0.68 Absolute Eosinophils 0.06 Absolute Basophils 0.00 RBC Morphology Normal Sodium 136 Potassium 3.7 Chloride 100 Carbon Dioxide 27.3 Anion Gap 8.7 BUN 24 H Creatinine 1.0 Est GFR (CKD-EPI 2020) 78.00 Glucose 99 Calcium 9.0 Magnesium 1.9 Troponin I 791 H* Hepatitis A IgM Ab Negative Hep Bs Antigen Negative Hep B Core Total Ab Negative Hepatitis C Antibody Negative Preliminary micro results at discharge 06/20/24 19:16 Blood Culture - Preliminary Blood NO GROWTH 48 HOURS 06/20/24 19:00 Blood Culture - Preliminary Blood NO GROWTH 48 HOURS PFSH All Active Problems (Updated 06/22/24 @ 17:08 by Opal Samuel NP) Discharge planning issues (Acute) Elevated troponin (Acute) Nausea & vomiting (Acute) Fever (Acute) Weakness (Acute) Myocardial injury (Acute) Cognitive impairment (Chronic) 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 NSTEMI 03/2024 s/p SYED to LAD. Sensorineural hearing loss, bilateral (Chronic) Bilateral hearing aids History of stroke (Chronic) 1997 and 2022 Diverticulosis of colon (Chronic) Prediabetes (Chronic) Psoriasis (Chronic) Hyperlipidemia (Chronic) Essential hypertension (Chronic) Medical History Tubular adenoma of colon 2008/2012/2015 CVA (cerebral vascular accident) (~10/2022) And 1997 Myocardial infarction (~1987) Herpes zoster Smoker Transient ischemic attack Surgical History S/P coronary artery stent placement (04/24/24) SYED to LCX 2013, SYED to LAD 2023 Status post appendectomy Status post three vessel coronary artery bypass (~2002) Status post tonsillectomy Status post vasectomy Family History Mother , age 67 Breast cancer Lung cancer Brain cancer Father , age 69 Diabetes Alcohol abuse Heart disease Stroke Paternal Grandfather Hypertensive disorder, systemic arterial Heart disease Paternal Grandmother Hypertensive disorder, systemic arterial Maternal Grandmother Diabetes Social History Smoking/Tobacco Use Status: Former Tobacco Use tobacco type: cigarettes Tobacco: How many years used: 5 Second Hand Exposure: Yes Smoking risk assessment performed?: Yes Alcohol Intake: current Alcohol Intake frequency: a few times a week Alcohol type: beer and hard liquor Drug use: Never Substance use type: does not use Adopted: No Caregiver/Support person: No Foster care: No Household members: spouse Housing: house Number of Children: 2 number of grandchildren: 4 Communication Needs: None Education Level: high school Do you need help understanding health information?: Rarely current occupation: Retired Pets and animals: No Sexually active: Yes Do you think of yourself as: straight/heterosexual Current gender identity: male What is your relationship status?: How often do you talk on the phone with friends or family?: three or more times per week How often do you get together with friends or relatives?: three or more times per week How often do you attend yazidism or evangelical services?: decline to answer Do you belong to any clubs or organized social groups?: decline to answer Panel score (0-1 are the most socially isolated patients): 2 What type of physical activity do you participate in: walking Duration: 15-30 minutes/day Frequency: daily Adrianna/Yazdanism: Lutheran Special adrianna needs: No Agree to transfusion: Yes Seatbelt use: always Helmet use: Yes Helmet use: always Drive intox or ride w/intox truck driver's offsider: No Working smoke detector in home: Yes Carbon monox detector in home: Yes Firearms in home: Yes Firearms unloaded and locked: No Do you feel safe at home: Yes Do you feel safe in your relationship?: Yes Victim of physical abuse: No Victim of emotional abuse: No Victim of sexual abuse: No Would you like helpful sources: No Time Spent with Patient Time Spent with Patient: 45-69 minutes Time was spent: preparing to see the patient(eg.review tests), obtaining and/or reviewing separately otained hiistory, ordering medications,tests, procedures, referring, communicating with other health anesthesiologist and critical care, indepentently interpreting results, counseling the patient and care coordination
[2024-06-25 11:37] LABS: Lyme Ab w Rflx to Lyme Confirm Positive (Negative)
[2024-06-25 16:00] LABS: Anaplasma phagocytophilum Positive (Negative); B. miyamotoi PCR Negative (Negative); Babesia divergens/MO-1 Negative (Negative); Babesia duncani Negative (Negative); Babesia microti Negative (Negative); Ehrlichia chaffeensis Negative (Negative); Ehrlichia ewingii/canis Negative (Negative); Ehrlichia muris eauclairensis Negative (Negative)
[2024-06-26 08:27] LABS: Lyme IgG Ab Positive (Negative); Lyme IgM Ab Negative (Negative)
== END 2024-06-23 13:20 | disposition short-term general hospital (02) | DRG 867 ==
LOC: ER 06-21 00:21 → MS 06-21 00:23 → ICU 06-23 10:17
PROVIDERS: Emergency Medicine; Family Medicine; Nurse Practitioner Acute Care; Nurse Practitioner Family; Admitting Provider Family Medicine; Emergency Provider Student in an Organized Health Care Education/Training Program; PCP Nurse Practitioner Family; Visit Provider Family Medicine
DX: A79.82 Anaplasmosis [A. phagocytophilum] (principal); I21.4 Non-ST elevation (NSTEMI) myocardial infarction; I50.20 Unspecified systolic (congestive) heart failure; R50.9 Fever, unspecified; R53.1 Weakness; I48.91 Unspecified atrial fibrillation; I25.10 Atherosclerotic heart disease of native coronary artery without angina pectoris; Z86.73 Personal history of transient ischemic attack (TIA), and cerebral infarction without residual deficits; E78.5 Hyperlipidemia, unspecified; R11.2 Nausea with vomiting, unspecified; D72.810 Lymphocytopenia; Z79.01 Long term (current) use of anticoagulants; Z95.5 Presence of coronary angioplasty implant and graft; R41.89 Other symptoms and signs involving cognitive functions and awareness; K57.30 Diverticulosis of large intestine without perforation or abscess without bleeding; H90.3 Sensorineural hearing loss, bilateral; I11.0 Hypertensive heart disease with heart failure; L40.9 Psoriasis, unspecified; R73.03 Prediabetes; I25.2 Old myocardial infarction; Z95.1 Presence of aortocoronary bypass graft; D69.6 Thrombocytopenia, unspecified; R41.3 Other amnesia; I95.9 Hypotension, unspecified
CPT/HCPCS: 00123; 36415; 78452; 80048; 80053; 80076; 86617; 86704; 86709; 86803; 87040; 87340; 87426; 87637; 87798; 93005; 93016; 93018; 93306; 93308; 96361; 96374; 97116; 97162; 97530; 99285; 71045; 71046; 81003; 81015; 83735; 84484; 85025; 86618; 93010; 93017; 99223; 99233; 99239; 99291; J0696; J2405

== ENCOUNTER 2024-07-23 14:43 | Outpatient (RCR) | payer MEDICARE, SELFPAY ==
--- NOTE | 2024-07-20 13:15 | RT.EKG_ITS ---
APPROVED REPORT Exam: Resting ECG Reason for Exam: T wave inversion Patient Location: O HR:65 bpm ECG Measurements Heart Rate 65 AXIS TX 180 P -15 QRSd 100 QRS 27 QT 408 T -15 QTc 425 Conclusion Sinus rhythm...normal P axis, V-rate 50- 99 Poor R wave progression Borderline T abnormalities, inferior leads...T flat/neg, II III aVF
--- NOTE | 2024-07-20 14:22 | NUR.NOTE ---
Nursing Note: Pt. presented for CR session this morning. Pt. and state he has continued to take nitro at least 1x a day, usually first thing in the morning. EKG taken which showed SR with T wave inversion in leads III and AVF. states PCP is aware and they have weekly calls with their office on Mondays. Also notes that she has strict instructions on when to seek emergent evaluation. Reinforced with that they are able to reach out to patient's PCP with any concerns, not just on scheduled calls and she stated understanding. Pt. tolerated exercise session well and denied any chest pain, SOB or any other symptoms. Pt. left ambulatory in no apparent distress. 3 lead Telemetry: SR, occasional PVC's
--- NOTE | 2024-07-23 13:30 | RT.EKG_ITS ---
APPROVED REPORT Exam: Resting ECG Reason for Exam: Chest pain Patient Location: O HR:59 bpm ECG Measurements Heart Rate 59 AXIS CO 200 P 55 QRSd 101 QRS 27 QT 448 T 39 QTc 444 Conclusion Sinus rhythm...normal P axis, V-rate 50- 99 Probable left atrial enlargement...P >50mS, <-0.10mV V1 Anteroseptal infarct, old...Q >40mS, V1-V2
== END 2024-07-23 23:59 | disposition home or self-care (01) ==
LOC: CR 14:43
PROVIDERS: PCP Nurse Practitioner Family; Visit Provider Internal Medicine Cardiovascular Disease
DX: I25.810 Atherosclerosis of coronary artery bypass graft(s) without angina pectoris (principal); Z51.89 Encounter for other specified aftercare
CPT/HCPCS: S9472

== ENCOUNTER 2024-08-06 03:34 | Outpatient (CLI) | payer MEDICARE, SELFPAY ==
[2024-08-06 10:21] LABS: Absolute Basophil Count 0.04 10^3/uL (0.0-0.2); Absolute Eosinophil Count 0.26 10^3/uL (0.0-0.7); Absolute Lymphocyte Count 1.95 10^3/uL (1.2-3.4); Absolute Monocyte Count 0.48 10^3/uL (0.1-0.8); Absolute Neutrophil Count 2.62 10^3/uL (1.2-6.7); Basophils % 0.7 %; Eosinophils % 4.9 %; HCT 43.6 % (40.0-50.0); HGB 14.5 g/dL (13.5-17.5); Lymphocytes % 36.4 %; MCHC 33.3 % (32.0-36.0); MCV 99 fL (80-95); MPV 9.1 fL (8.0-11.0); Platelet Count 238 10^3/uL (130-400); RBC 4.39 10^6/uL (4.36-5.78); RDW 13.1 % (11.8-14.1); RDW-SD 48.1 fL; WBC 5.35 10^3/uL (4.4-10.8)
[2024-08-06 10:45] LABS: ALT 31 U/L (16-63); AST 18 U/L (15-37); Albumin 3.5 g/dL (3.4-5.0); Alkaline Phosphatase 63 U/L (46-116); Anion Gap 8.5 mmol/L (3-11); BUN 27 mg/dL (7-18); CO2 26.5 mmol/L (21.0-32.0); CREATININE 0.9 mg/dL (0.70-1.30); Calcium 9.2 mg/dL (8.5-10.1); Chloride 106 mmol/L (98-107); Estimated GFR 88.51 (mL/min/1.73m2); Glucose 110 mg/dL (74-106); Potassium 4.6 mmol/L (3.5-5.1); Sodium 141 mmol/L (136-145)
== END 2024-08-06 03:35 | disposition home or self-care (01) ==
LOC: LBO 03:34
PROVIDERS: PCP Nurse Practitioner Family; Visit Provider Nurse Practitioner Family
DX: A69.20 Lyme disease, unspecified (principal); A77.49 Other ehrlichiosis; I50.20 Unspecified systolic (congestive) heart failure; R07.9 Chest pain, unspecified
CPT/HCPCS: 36415; 80053; 85025

== ENCOUNTER 2024-08-10 13:16 | Outpatient (RCR) | payer MEDICARE, SELFPAY ==
--- NOTE | 2024-08-01 13:15 | RT.EKG_ITS ---
APPROVED REPORT Exam: Resting ECG Reason for Exam: ETT Patient Location: O HR:67 bpm ECG Measurements Heart Rate 67 AXIS NE 199 P 4 QRSd 95 QRS 13 QT 321 T 46 QTc 339 Conclusion Sinus rhythm...normal P axis, V-rate 50- 99 Probable left atrial enlargement...P >50mS, <-0.10mV V1 Anteroseptal infarct, old...Q >40mS, V1-V2 Borderline ST elevation, inferior leads...ST >0.06mV, II III aVF
--- NOTE | 2024-08-01 14:15 | NUR.NOTE ---
Nursing Note:Patient c/o 8/10 chest tightness 6 minutes into treadmill walk at approx 1310 in cardiac rehab. Treadmill stopped and patient instructed to have a seat at nurses station in which he then took one SL nitro tablet at 1315. Upon 3 minute assessment patient stated all chest pain and tightness had resolved. BP at 1320 this time noted to be 87/63. Patient denied any dizziness, SOB, chest pain or any other symptoms at this time and was pleasantly conversing with CR staff. VS at 1325 noted to be 114/68, patient continued to deny all symptoms. Dr. Plummer viewed EKG taken at time of chest discomfort as well as previous EKGs and patient ok to be taken off monitor and end CR session. Discussed s/s to seek care urgently with patient and including instruction for nitro administration. Patient and stating understanding of these instructions. Patient to be seen by [facility] [place] [place] cardiology on 08/09/24. Patient left ambulatory with in no apparent distress.
== END 2024-08-23 23:59 | disposition home or self-care (01) ==
LOC: CR 13:16
PROVIDERS: PCP Nurse Practitioner Family; Visit Provider Internal Medicine Cardiovascular Disease
DX: I21.4 Non-ST elevation (NSTEMI) myocardial infarction (principal); Z51.89 Encounter for other specified aftercare
CPT/HCPCS: S9472

== ENCOUNTER 2024-08-11 09:09 | Emergency (ER) | payer MEDICARE, SELFPAY ==
[2024-08-11] VITALS (53 sets, daily range): BP systolic 108–167; BP diastolic 59–88; PULSE 51–74; RESP 10–31; TEMP 36.4; O2SAT 94–100
--- NOTE | 2024-08-11 09:00 | RT.EKG_ITS ---
APPROVED REPORT Exam: Resting ECG Reason for Exam: Chest Pain Patient Location: E HR:62 bpm ECG Measurements Heart Rate 62 AXIS NJ 209 P -21 QRSd 102 QRS 15 QT 421 T 6 QTc 401 Conclusion Sinus bradycardia with PVCs Borderline ST elevation leads III, aVF, present on EKG from 08/01/2024 New T-wave inversion V3-V6 when compared to priors
--- NOTE | 2024-08-11 09:15 | DI.RAD_ITS ---
Exam(s) XR PORTABLE CHEST AP EXAM: XR PORTABLE CHEST AP CLINICAL HISTORY: chest pain 0800 today TECHNIQUE: 2D digital imaging was performed of the chest. One image was obtained. An AP view was ob tained. COMPARISON: CR XR CHEST 2V PA LATERAL from 06/22/2024 FINDINGS: MEDIASTINUM: Normal. HEART: The heart is mildly enlarged. PULMONARY VASCULATURE: Normal. LUNGS: Clear. PLEURAL SPACE: No pleural effusion or pneumothorax. BONE:Within normal limits for the patient's age. There are sternal wires in place. OTHER FINDINGS:Normal. IMPRESSION: No acute pulmonary findings. DATA REPOSITORY: RADIATION DOSE DELIVERED:
--- NOTE | 2024-08-11 09:25 | W.ED.GENAD ---
Discharge Plan Disposition Patient Disposition: Transfer-Acute Inpatient Care Specific Acute Inpt Facility: [facility] Condition: Stable Discharge Details Clinical Impression: Non-ST elevation PA (NSTEMI) Primary Care Provider: Syeda Singh ED Provider: Surinder Haddad Home Meds and New Rx's Prescriptions: No Action loratadine [Allergy Relief (loratadine)] 10 mg tablet 10 mg PO DAILY magnesium chloride [Mag 64] 64 mg tablet,delayed release (DR/EC) 128 mg PO DAILY Qty: 180 4RF aspirin 81 mg tablet,delayed release (DR/EC) 81 mg PO DAILY atorvastatin 80 mg tablet 80 mg PO DAILY clopidogrel [Plavix] 75 mg tablet 75 mg PO DAILY Qty: 90 3RF nitroglycerin 0.4 mg tablet, sublingual 0.4 mg sublingual Q5-15M PRN (Reason: chest pain) Qty: 25 3RF Rx Instructions: 1 tablet every 5 minutes x 3 doses if needed for chest pain. Seek emergency services if not improving after first dose apixaban 5 mg tablet 5 mg PO BID Qty: 180 3RF melatonin 3 mg capsule 6 mg PO HS PRN lisinopril 10 mg tablet 10 mg PO DAILY Qty: 90 3RF spironolactone 25 mg tablet 12.5 mg PO DAILY Qty: 45 3RF [id number] C-Mn 1 EACH tablet 1 ea PO BID cinnamon bark (bulk) 1 GM powder 1 tsp PO DAILY Rx Instructions: MIXES WITH 1 TBSPN HONEY multivitamin [Daily Vitamin] 1 EACH tablet 1 tab PO DAILY metoprolol succinate 50 mg tablet extended release 24 hr 50 mg PO DAILY Qty: 90 3RF celecoxib [Celebrex] 200 mg capsule 200 mg PO DAILY PRN (Reason: pain) Qty: 90 3RF pantoprazole 40 mg tablet,delayed release (DR/EC) 40 mg PO DAILY Qty: 90 3RF Rx Instructions: per [facility] discharge honey flavor (bulk) 120 ML liquid 1 tsp PO QAM HPI General Date/Time Provider Initiated Documentation: 08/11/24 09:23. HPI Narrative: 74 year-old male presents to ED today by POV/ambulating with his with a chief complaint of severe exertional chest pain this morning after doing yardwork- lasting about 30 minutes, and resolved by time of arrival with onset around 0830 this morning. Quality described as heavy chest pain, severe, with radiation to neck/L arm, no radiation to syncope, sweating, continued chest pain, fever, cough, hemoptysis, endorses shortness of breath. Severity is described as 10/10 at onset, 0/10 currently in ED. Palliating factors include two nitro with relief. Provoking factors include exertion. 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 Patient has been having to use nitro every day this week with ADLs. Patient is anticoagulated on Eliquis, took it around 0815 this morning. Related Data Home Medications ?Medication ?Instructions ?Recorded ?Confirmed [id number]-[id number] C-Mn 750 1 ea PO BID 04/04/13 08/11/24 mg-600 mg-55 mg-5 mg tablet cinnamon bark (bulk) 1 tsp PO DAILY 07/31/13 08/11/24 multivitamin (Daily Vitamin tablet) 1 tab PO DAILY 07/30/14 08/11/24 honey flavor (bulk) 1 tsp PO QAM 07/13/15 08/11/24 loratadine 10 mg tablet (Allergy 10 mg PO DAILY 10/09/19 08/11/24 Relief (loratadine)) magnesium chloride 64 mg 128 mg (2 x 64 mg) PO DAILY #180 10/13/20 08/11/24 (magnesium chloride) tabs tablet,delayed release (Mag 64) aspirin 81 mg tablet,delayed 81 mg PO DAILY 01/31/23 07/02/24 release metoprolol succinate 50 mg 50 mg PO DAILY #90 tabs 11/25/23 08/11/24 tablet,extended release 24 hr atorvastatin 80 mg tablet 80 mg PO DAILY 02/13/24 08/11/24 apixaban 5 mg tablet 5 mg PO BID #180 tabs 05/09/24 08/11/24 clopidogrel 75 mg tablet (Plavix) 75 mg PO DAILY #90 tabs 05/09/24 08/11/24 nitroglycerin 0.4 mg sublingual 0.4 mg sublingual Q5-15M PRN chest 05/09/24 08/11/24 tablet pain #25 tabs celecoxib 200 mg capsule (Celebrex) 200 mg PO DAILY PRN pain #90 caps 05/21/24 08/11/24 lisinopril 10 mg tablet 10 mg PO DAILY #90 tabs 07/02/24 08/11/24 melatonin 3 mg capsule 6 mg PO HS PRN 07/02/24 08/11/24 spironolactone 25 mg tablet 12.5 mg (1/2 x 25 mg) PO DAILY #45 07/02/24 08/11/24 tabs pantoprazole 40 mg tablet,delayed 40 mg PO DAILY #90 tabs 07/31/24 08/11/24 release Previous Rx's ?Medication ?Instructions ?Recorded magnesium chloride 64 mg 128 mg (2 x 64 mg) PO DAILY #180 10/13/20 (magnesium chloride) tabs tablet,delayed release (Mag 64) metoprolol succinate 50 mg 50 mg PO DAILY #90 tabs 11/25/23 tablet,extended release 24 hr apixaban 5 mg tablet 5 mg PO BID #180 tabs 05/09/24 clopidogrel 75 mg tablet (Plavix) 75 mg PO DAILY #90 tabs 05/09/24 nitroglycerin 0.4 mg sublingual 0.4 mg sublingual Q5-15M PRN chest 05/09/24 tablet pain #25 tabs celecoxib 200 mg capsule (Celebrex) 200 mg PO DAILY PRN pain #90 caps 05/21/24 lisinopril 10 mg tablet 10 mg PO DAILY #90 tabs 07/02/24 spironolactone 25 mg tablet 12.5 mg (1/2 x 25 mg) PO DAILY #45 07/02/24 tabs pantoprazole 40 mg tablet,delayed 40 mg PO DAILY #90 tabs 07/31/24 release Allergies Allergy/AdvReac Type Severity Reaction Status Date / Time Tetanus Vaccines and Toxoid Allergy Unknown LARGE Verified 07/02/24 11:07 (Tetanus Vaccines \T\ Toxoid) LOCAL REACTION oxycodone AdvReac Intermediate HALLUCINATI Verified 08/11/24 09:21 ONS ezetimibe AdvReac INTOLERANT Verified 08/11/24 09:21 CAT HAIR Allergy Mild Wheezing Uncoded 08/11/24 09:21 DUST Allergy Unknown Wheezing Uncoded 08/11/24 09:21 POLLEN EXTRACTS Allergy Unknown Wheezing Uncoded 08/11/24 09:21 General Stated Complaint: Chest Pain HUONG: 3 Review of Systems All systems reviewed & are unremarkable except as noted in HPI and below Exam Narrative Exam Narrative: GENERAL APPEARANCE: Well-nourished, non-toxic, awake and alert, atraumatic, no acute distress. SKIN: Warm, pink, dry, intact, without rashes/lesions/ulcerations. HEAD: Normocephalic, atraumatic, normal hair distribution for gender/age. EYES: Normal conjunctiva, no exudates on lids/lashes. ENT: Nares patent, no circumoral cyanosis, no facial swelling NECK: Supple, trachea midline, painless cervical ROM. LUNGS/CHEST: Lungs CTA bilaterally, non-labored respirations, normal A/P diameter, symmetrical expansion, no chest wall deformity HEART (CV/PV): Regular rate and rhythm without murmur, no peripheral edema, no JVD. ABDOMEN: Soft, non-distended, no guarding. MSK: Normal ROM, no swelling/deformity to bilateral UEs or LEs, moving all extremities without weakness, no cyanosis, spine midline without tenderness, normal curvature. NEURO: Mental Status AAOx4 - alert to person, place, time, events No facial droop, no forehead involvement. Motor: No focal weakness - strength 5/5 in bilateral UEs and LEs, proximal and distal, symmetric. Sensory: sensation intact to light touch globally. Gait normal: patient ambulated without ataxia into ED room. PSYCH: euthymic, cooperative, pleasant, appropriate speech Course Vital Signs Vital signs: Vital Signs Temperature 36.4 C L 08/11/24 09:14 Pulse 55 L 08/11/24 09:14 Respiratory Rate 18 08/11/24 09:14 Blood Pressure 167/71 H 08/11/24 09:14 Pulse Oximetry 99 08/11/24 09:14 Temperature 36.4 C L 08/11/24 09:14 Pulse 55 L 08/11/24 09:14 Respiratory Rate 18 08/11/24 09:14 Blood Pressure 167/71 H 08/11/24 09:14 Pulse Oximetry 99 08/11/24 09:14 Oxygen Delivery Method Room Air 08/11/24 09:14 Oxygen Flow Rate 0 08/11/24 09:14 Medical Decision Making This dictation utilizes [id number]-[id number] dictation software and may contain unedited grammatical errors. 74 year-old male presents to ED today by POV/ambulating with his with a chief complaint of severe exertional chest pain this morning after doing yardwork- lasting about 30 minutes, and resolved by time of arrival with onset around 0830 this morning. Quality described as heavy chest pain, severe, with radiation to neck/L arm, no radiation to syncope, sweating, continued chest pain, fever, cough, hemoptysis, endorses shortness of breath. Severity is described as 10/10 at onset, 0/10 currently in ED. Palliating factors include two nitro with relief. Provoking factors include exertion. 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 Patient has been having to use nitro every day this week with ADLs. Patient is anticoagulated on Eliquis, took it around 0815 this morning. Patients' medical history: History of CVA, myocardial infarction, status post appendectomy, heart failure with reduced ejection fraction, anaplasmosis, hypertension, prediabetes. Family and social history: Non-smoker, stays active with chores, eats normal diet, no recent travel or sick contacts. Pertinent exam findings / vital signs include benign cardiopulmonary exam, lungs CTA, benign abdomen, neuro intact. Differential / pathologies of concern include ACS, NSTEMI, CHF, angina. Diagnostic studies of: -CBC, CMP, lipase, serial troponins, BNP, EKG, chest x-ray. -CBC is benign without leukocytosis or anemia -CMP is benign and requires no intervention -Patient is having significant difficulty with troponins as his samples have been hemolyzing, initial troponin 75, but 1.5 hours later was 90, then 1 hour after that returned to 72. -BNP elevated at 1021 without priors to compare -Lipase negative -Chest x-ray without acute pathology -EKG shows sinus bradycardia 62 bpm with some new T wave inversions in the lateral leads, some ST depressions here as well without reciprocal new elevations, there is a mild elevation in lead III, he has a PVC, normal intervals Interventions of: -324mg ASA. -Consulted Cardiology AMADO Mcginnis at [facility], recommends transfer to [facility] for suspicious chest pain with history, daily nitro use, elevated troponins, and EKG changes. Accepting for floor bed today, Dr. Leach accepting physician at 1339. ED Course/Assessment/Plan: 74-year-old male with significant cardiac history presents with 10 out of 10 chest pain this morning while doing exertional yard work, use completely resolved on arrival after taking 2 nitros at home, he had anaplasmosis this past summer causing an PA, followed by [facility]. He has been using nitro almost daily this week. I discussed this with cardiology AMADO Mcginnis, recommends transfer, did load with 324 of aspirin, recommend holding heparin drip at this time until 12 hours after patient took his Eliquis this morning at 0815. Patient was chest pain-free throughout the visit required no urgent interventions. Disposition of Non-ST Elevation PA (NSTEMI). Patient verbalized understanding of the plan and return to ED criteria and engaged in shared decision making. Medical Records Medical records reviewed: Yes I reviewed the patient's medical records. Imaging Data Radiologic Study: Attestation: I personally reviewed and interpreted this imaging study as follows: Imaging: CT Scan Radiologist's impression: Exam: XR Chest Exam date and time: 08/11/2024 9:55 AM Age: 74 years old Clinical indication: Other: Chest pain TECHNIQUE: Imaging protocol: Radiologic exam of the chest. Views: 1 view. COMPARISON: CR XR CHEST 2V PA LATERAL 06/22/2024 5:39 PM FINDINGS: Lungs: Unremarkable. No consolidation. Pleural spaces: Unremarkable. No pleural effusion. No pneumothorax. Heart/Mediastinum: Cardiomegaly Bones/joints: Median sternotomy IMPRESSION: No acute process Dictated and Authenticated by: Serene Mcdonnell MD. Lab Data Lab results reviewed: Yes I reviewed the patient's lab results. Labs: Laboratory Tests Range/Units 08/11/24 08/11/24 08/11/24 09:33 10:40 11:38 WBC (4.4-10.8) 10^3/uL 5.53 RBC (4.36-5.78) 10^6/uL 4.21 L Hgb (13.5-17.5) g/dL 13.7 Hct (40.0-50.0) % 41.8 MCV (80-95) fL 99 H MCH (27.0-33.0) pg 32.5 MCHC (32.0-36.0) % 32.8 RDW (11.8-14.1) % 13.1 Plt Count (130-400) 10^3/uL 217 MPV (8.0-11.0) fL 9.3 Immature Gran % % 0.2 Neutrophils % % 46.4 Lymphocytes % % 38.5 Monocytes % % 9.2 Eosinophils % % 5.2 Basophils % % 0.5 Nucleated RBC % (0.0-0.3) % 0.0 Absolute Neutrophils (1.2-6.7) 10^3/uL 2.56 Absolute Lymphocytes (1.2-3.4) 10^3/uL 2.13 Absolute Monocytes (0.1-0.8) 10^3/uL 0.51 Absolute Eosinophils (0.0-0.7) 10^3/uL 0.29 Absolute Basophils (0.0-0.2) 10^3/uL 0.03 Sodium Cancelled 142 Potassium Cancelled 4.9 Chloride Cancelled 106 Carbon Dioxide Cancelled 27.1 Anion Gap Cancelled 8.9 BUN Cancelled 24 H Creatinine Cancelled 0.9 Est GFR (CKD-EPI 2020) Cancelled 88.51 Glucose Cancelled 88 Calcium Cancelled 9.0 Magnesium Cancelled 2.2 Total Bilirubin Cancelled 0.76 AST Cancelled 23 ALT Cancelled 36 Alkaline Phosphatase Cancelled 62 Troponin I Cancelled 75 Cancelled NT-Pro-B Natriuret Pep Cancelled 1021 H Total Protein Cancelled 7.5 Albumin Cancelled 3.4 Lipase Cancelled 55 Range/Units 08/11/24 08/11/24 12:15 13:37 WBC (4.4-10.8) 10^3/uL RBC (4.36-5.78) 10^6/uL Hgb (13.5-17.5) g/dL Hct (40.0-50.0) % MCV (80-95) fL MCH (27.0-33.0) pg MCHC (32.0-36.0) % RDW (11.8-14.1) % Plt Count (130-400) 10^3/uL MPV (8.0-11.0) fL Immature Gran % % Neutrophils % % Lymphocytes % % Monocytes % % Eosinophils % % Basophils % % Nucleated RBC % (0.0-0.3) % Absolute Neutrophils (1.2-6.7) 10^3/uL Absolute Lymphocytes (1.2-3.4) 10^3/uL Absolute Monocytes (0.1-0.8) 10^3/uL Absolute Eosinophils (0.0-0.7) 10^3/uL Absolute Basophils (0.0-0.2) 10^3/uL Sodium Potassium Chloride Carbon Dioxide Anion Gap BUN Creatinine Est GFR (CKD-EPI 2020) Glucose Calcium Magnesium Total Bilirubin AST ALT Alkaline Phosphatase Troponin I 90 H* 72 NT-Pro-B Natriuret Pep Total Protein Albumin Lipase Quality:SDOH Health Related Social Needs: No Data to Display PFSH All Active Problems (Updated 08/11/24 @ 14:35 by AMADO Carrington) Non-ST elevation PA (NSTEMI) (Acute) Lyme disease (Acute) Anaplasmosis (Acute ~05/2024) Elevated troponin (Acute) Heart failure with reduced ejection fraction (Chronic) ASCVD (arteriosclerotic cardiovascular disease) (Chronic) PA 1987 s/p CABG x 3 in 2002 and SYED to left circumflex artery in 2013. NSTEMI 03/2024 s/p SYED to LAD. 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 Essential hypertension (Chronic) Hyperlipidemia (Chronic) Psoriasis (Chronic) Prediabetes (Chronic) Sensorineural hearing loss, bilateral (Chronic) Bilateral hearing aids Diverticulosis of colon (Chronic) Medical History Tubular adenoma of colon CVA (cerebral vascular accident) (~10/2022) And 1997 Myocardial infarction (~1987) Herpes zoster Smoker Transient ischemic attack Surgical History S/P coronary artery stent placement (04/24/24) SYED to LCX 2013, SYED to LAD 2023 Status post appendectomy Status post three vessel coronary artery bypass (~2002) Status post tonsillectomy Status post vasectomy Family History Mother , age 67 Breast cancer Lung cancer Brain cancer Father , age 69 Diabetes Alcohol abuse Heart disease Stroke Paternal Grandfather Hypertensive disorder, systemic arterial Heart disease Paternal Grandmother Hypertensive disorder, systemic arterial Maternal Grandmother Diabetes Social History (Reviewed 06/20/24 @ 18:26 by HARI Vargas Smoking/Tobacco Use Status: Former Tobacco Use tobacco type: cigarettes Tobacco: How many years used: 5 Second Hand Exposure: Yes Smoking risk assessment performed?: Yes Alcohol Intake: current Alcohol Intake frequency: a few times a week Alcohol type: beer and hard liquor Drug use: Never Substance use type: does not use Adopted: No Caregiver/Support person: No Foster care: No Household members: spouse Housing: house Number of Children: 2 number of grandchildren: 4 Communication Needs: None Education Level: high school Do you need help understanding health information?: Rarely current occupation: Retired Pets and animals: No Sexually active: Yes Do you think of yourself as: straight/heterosexual Current gender identity: male What is your relationship status?: How often do you talk on the phone with friends or family?: three or more times per week How often do you get together with friends or relatives?: three or more times per week How often do you attend yarsani or yazidi services?: decline to answer Do you belong to any clubs or organized social groups?: decline to answer Panel score (0-1 are the most socially isolated patients): 2 What type of physical activity do you participate in: walking Duration: 15-30 minutes/day Frequency: daily Adrianna/Confucianist: Buddhism Special adrianna needs: No Agree to transfusion: Yes Seatbelt use: always Helmet use: Yes Helmet use: always Drive intox or ride w/intox fuel truck driver: No Working smoke detector in home: Yes Carbon monox detector in home: Yes Firearms in home: Yes Firearms unloaded and locked: No Do you feel safe at home: Yes Do you feel safe in your relationship?: Yes Victim of physical abuse: No Victim of emotional abuse: No Victim of sexual abuse: No Would you like helpful sources: No
[2024-08-11 09:41] LABS: Abs Immature Grans 0.01 10^3/uL (0.0-0.06); Absolute Basophil Count 0.03 10^3/uL (0.0-0.2); Absolute Eosinophil Count 0.29 10^3/uL (0.0-0.7); Absolute Lymphocyte Count 2.13 10^3/uL (1.2-3.4); Absolute Monocyte Count 0.51 10^3/uL (0.1-0.8); Absolute Neutrophil Count 2.56 10^3/uL (1.2-6.7); Basophils % 0.5 %; Eosinophils % 5.2 %; HCT 41.8 % (40.0-50.0); HGB 13.7 g/dL (13.5-17.5); Immature Grans % 0.2 %; Lymphocytes % 38.5 %; MCH 32.5 pg (27.0-33.0); MCHC 32.8 % (32.0-36.0); MCV 99 fL (80-95); MPV 9.3 fL (8.0-11.0); Monocytes % 9.2 %; Neutrophils % 46.4 %; Platelet Count 217 10^3/uL (130-400); RBC 4.21 10^6/uL (4.36-5.78); RDW 13.1 % (11.8-14.1); RDW-SD 48.2 fL; WBC 5.53 10^3/uL (4.4-10.8)
--- NOTE | 2024-08-11 10:37 | DI.VRAD_ITS ---
PROCEDURE INFORMATION: Exam: XR Chest Exam date and time: 08/11/2024 9:55 AM Age: 74 years old Clinical indication: Other: Chest pain TECHNIQUE: Imaging protocol: Radiologic exam of the chest. Views: 1 view. COMPARISON: CR XR CHEST 2V PA LATERAL 06/22/2024 5:39 PM FINDINGS: Lungs: Unremarkable. No consolidation. Pleural spaces: Unremarkable. No pleural effusion. No pneumothorax. Heart/Mediastinum: Cardiomegaly Bones/joints: Median sternotomy IMPRESSION: No acute process Dictated and Authenticated by: Serene Mcdonnell MD. Ordering:MARINA Cadena MD
[2024-08-11 11:14] LABS: ALT 36 U/L (16-63); AST 23 U/L (15-37); Albumin 3.4 g/dL (3.4-5.0); Alkaline Phosphatase 62 U/L (46-116); Anion Gap 8.9 mmol/L (3-11); BUN 24 mg/dL (7-18); Bilirubin, Total 0.76 mg/dL (0.2-1.0); CO2 27.1 mmol/L (21.0-32.0); CREATININE 0.9 mg/dL (0.70-1.30); Chloride 106 mmol/L (98-107); Estimated GFR 88.51 (mL/min/1.73m2); Glucose 88 mg/dL (74-106); Lipase 55 U/L (16-77); Magnesium 2.2 mg/dL (1.8-2.4); NT-proBNP 1021 pg/mL (<300); Potassium 4.9 mmol/L (3.5-5.1); Sodium 142 mmol/L (136-145); Total Protein 7.5 g/dL (6.4-8.2); Troponin I 75 ng/L (<or=76)
--- NOTE | 2024-08-11 12:27 | NUR.NOTE ---
Nursing Note: blood drawn and hemolyzed
[2024-08-11 12:56] LABS: Troponin I 90 ng/L (<or=76)
[2024-08-11] MEDS: Aspirin 81 MG CHEW 324 MG CH (13:57)
[2024-08-11 14:12] LABS: Troponin I 72 ng/L (<or=76)
[2024-08-11 17:23] LABS: Troponin I 79 ng/L (<or=76)
== END 2024-08-11 16:54 | disposition short-term general hospital (02) ==
PROVIDERS: Emergency Provider Physician Assistant; PCP Nurse Practitioner Family
DX: R07.9 Chest pain, unspecified (principal); I21.4 Non-ST elevation (NSTEMI) myocardial infarction; Z86.79 Personal history of other diseases of the circulatory system
CPT/HCPCS: 36415; 80053; 83690; 93005; 99285; 71045; 83735; 83880; 84484; 85025; 93010

== ENCOUNTER 2024-08-23 12:47 | Outpatient (CLI) | payer MEDICARE, SELFPAY ==
[2024-08-23 12:53] LABS: HCT 43.7 % (40.0-50.0); HGB 14.4 g/dL (13.5-17.5); MCH 32.7 pg (27.0-33.0); MCV 99 fL (80-95); MPV 9.2 fL (8.0-11.0); Platelet Count 278 10^3/uL (130-400); RDW 13.2 % (11.8-14.1); RDW-SD 48.1 fL; WBC 6.13 10^3/uL (4.4-10.8)
[2024-08-23 13:08] LABS: ALT 30 U/L (16-63); AST 23 U/L (15-37); Albumin 3.6 g/dL (3.4-5.0); Alkaline Phosphatase 76 U/L (46-116); Anion Gap 8.1 mmol/L (3-11); BUN 19 mg/dL (7-18); Bilirubin, Total 0.64 mg/dL (0.2-1.0); CO2 28.9 mmol/L (21.0-32.0); CREATININE 0.9 mg/dL (0.70-1.30); Chloride 105 mmol/L (98-107); Estimated GFR 88.51 (mL/min/1.73m2); Glucose 93 mg/dL (74-106); Magnesium 2.2 mg/dL (1.8-2.4); NT-proBNP 341 pg/mL (<300); PHOSPHORUS 3.9 mg/dL (2.6-4.7); Potassium 4.6 mmol/L (3.5-5.1); Sodium 142 mmol/L (136-145); Total Protein 8.4 g/dL (6.4-8.2)
[2024-08-23 13:46] LABS: Calcium 9.6 mg/dL (8.5-10.1)
== END 2024-08-23 12:48 | disposition home or self-care (01) ==
LOC: LBO 12:53
PROVIDERS: PCP Nurse Practitioner Family; Visit Provider Emergency Medicine
DX: I25.10 Atherosclerotic heart disease of native coronary artery without angina pectoris (principal); I21.4 Non-ST elevation (NSTEMI) myocardial infarction; I50.9 Heart failure, unspecified; I10 Essential (primary) hypertension
CPT/HCPCS: 36415; 80053; 85027; 83735; 83880; 84100

== ENCOUNTER 2024-09-05 13:27 | Outpatient (RCR) | payer MEDICARE, SELFPAY | END 2024-09-22 23:59 | disposition home or self-care (01) | LOC: CR 13:27 | PROVIDERS: PCP Nurse Practitioner Family; Visit Provider Internal Medicine Cardiovascular Disease | DX: I21.4 Non-ST elevation (NSTEMI) myocardial infarction (principal); Z51.89 Encounter for other specified aftercare | CPT/HCPCS: S9472 ==

== ENCOUNTER 2024-10-22 13:18 | Outpatient (RCR) | payer MEDICARE, SELFPAY ==
--- NOTE | 2024-10-05 13:15 | RT.EKG_ITS ---
APPROVED REPORT Exam: Resting ECG Reason for Exam: 08/02 chest pain Patient Location: O HR:64 bpm ECG Measurements Heart Rate 64 AXIS VA 203 P 47 QRSd 95 QRS 72 QT 419 T 21 QTc 433 Conclusion Sinus rhythm...normal P axis, V-rate 50- 99 Normal Electrocardiogram
== END 2024-10-23 23:59 | disposition home or self-care (01) ==
LOC: CR 13:18
PROVIDERS: PCP Nurse Practitioner Family; Visit Provider Internal Medicine Cardiovascular Disease
DX: I21.4 Non-ST elevation (NSTEMI) myocardial infarction (principal); Z51.89 Encounter for other specified aftercare
CPT/HCPCS: S9472

== ENCOUNTER 2024-11-02 13:23 | Outpatient (RCR) | payer MEDICARE, SELFPAY | END 2024-11-23 23:59 | disposition home or self-care (01) | LOC: CR 13:23 | PROVIDERS: PCP Nurse Practitioner Family; Visit Provider Internal Medicine Cardiovascular Disease | DX: I21.4 Non-ST elevation (NSTEMI) myocardial infarction (principal); Z51.89 Encounter for other specified aftercare | CPT/HCPCS: S9472 ==

== ENCOUNTER 2025-03-08 10:22 | Observation (INO) | payer MEDICARE, SELFPAY ==
[2025-03-08] VITALS (46 sets, daily range): BP systolic 110–164; BP diastolic 49–110; PULSE 48–68; RESP 6–45; TEMP 36.3–36.8; O2SAT 92–100
--- NOTE | 2025-03-08 10:15 | RT.EKG_ITS ---
APPROVED REPORT Exam: Resting ECG Reason for Exam: Syncope, chest pain Patient Location: E HR:49 bpm ECG Measurements Heart Rate 49 AXIS WV 236 P 45 QRSd 98 QRS 71 QT 441 T 39 QTc 397 Conclusion Sinus bradycardia, rate 49 1st degree HB, new from prior No STEMI
[2025-03-08 10:49] LABS: Absolute Basophil Count 0.03 10^3/uL (0.0-0.2); Absolute Eosinophil Count 0.11 10^3/uL (0.0-0.7); Absolute Monocyte Count 0.43 10^3/uL (0.1-0.8); Absolute Neutrophil Count 2.64 10^3/uL (1.2-6.7); Basophils % 0.6 %; Eosinophils % 2.1 %; HCT 41.8 % (40.0-50.0); HGB 13.5 g/dL (13.5-17.5); Lymphocytes % 38.4 %; MCH 32.1 pg (27.0-33.0); MCHC 32.3 % (32.0-36.0); MCV 100 fL (80-95); MPV 9.2 fL (8.0-11.0); Monocytes % 8.3 %; Neutrophils % 50.6 %; Platelet Count 246 10^3/uL (130-400); RDW 12.4 % (11.8-14.1); RDW-SD 45.1 fL; WBC 5.21 10^3/uL (4.4-10.8)
[2025-03-08 11:07] LABS: ALT 32 U/L (16-63); AST 26 U/L (15-37); Albumin 3.5 g/dL (3.4-5.0); Alkaline Phosphatase 60 U/L (46-116); Anion Gap 8.3 mmol/L (3-11); BUN 24 mg/dL (7-18); Bilirubin, Total 0.6 mg/dL (0.2-1.0); CO2 25.7 mmol/L (21.0-32.0); CREATININE 0.8 mg/dL (0.70-1.30); Calcium 8.7 mg/dL (8.5-10.1); Chloride 105 mmol/L (98-107); Estimated GFR 91.72 (mL/min/1.73m2); Glucose 124 mg/dL (74-106); Magnesium 2.1 mg/dL (1.8-2.4); Potassium 4.4 mmol/L (3.5-5.1); Sodium 139 mmol/L (136-145); Total Protein 7.5 g/dL (6.4-8.2); Troponin I 13 ng/L (<or=76)
--- NOTE | 2025-03-08 11:49 | W.ED.GENAD ---
Discharge Plan Disposition Patient Disposition: Admit to [facility] Condition: Stable Discharge Details Chief Complaint: Dizzy/Sync Clinical Impression: Syncope, Essential hypertension, Hyperlipidemia, ASCVD (arteriosclerotic cardiovascular disease), Atrial fibrillation, Heart failure with reduced ejection fraction, Ischemic stroke Admit Date/Time: 03/08/25 15:00 Admit Provider: Maikol Perez Attending Provider: Maikol Perez Primary Care Provider: Syeda Singh ED Provider: Carmela Perdue Discharge Data Discharge Date/Time-TO BE ENTERED AT DEPARTURE: 03/08/25 15:32 HPI General Mode of arrival: EMS. Date/Time Provider Initiated Documentation: 03/08/25 10:42. Limitations to Documentation: no limitations. Information obtained by: patient, family and old records reviewed. HPI Narrative: This is a 74-year-old male patient with a past medical history significant for coronary artery disease status post triple CABG, and history of heart failure, atrial fibrillation on Eliquis, and history of stroke without significant residual deficits other than short-term memory changes, and hypertension/hyperlipidemia, presenting for evaluation after syncopal episode. The patient was sitting at his table this morning about to eat breakfast, and had a syncopal episode that was not preceded by any dizziness, position changes. He denies chest pain, palpitation, or nausea, but did appear pale and did not seem to be making sense per the patient's family member. He did not sustain trauma during this event. EMS was summoned, noted him to be slightly bradycardic and to have a borderline low blood pressure. They gave him a 250 cc bolus of fluid given his history of heart failure and transported him to the emergency department. He remained with improved symptoms during transport and on arrival was not complaining of any symptoms at all. He has never had a fainting episode like this before, has been otherwise eating and drinking typically for him. During his evaluation he did endorse a sudden and severe sharp frontal headache, that resolved within several seconds to a minute. It was not associated with any weakness, numbness, speech changes, or vision changes. Related Data Home Medications ?Medication ?Instructions ?Recorded ?Confirmed ofugzndpyzs-qovcknyel-onk C-Mn 750 1 ea PO BID 04/04/13 03/08/25 mg-600 mg-55 mg-5 mg tablet multivitamin (Daily Vitamin tablet) 1 tab PO DAILY 07/30/14 03/08/25 honey flavor (bulk) 1 tsp PO QAM 07/13/15 03/08/25 loratadine 10 mg tablet (Allergy 10 mg PO DAILY 10/09/19 03/08/25 Relief (loratadine)) magnesium chloride 64 mg 128 mg (2 x 64 mg) PO DAILY #180 10/13/20 03/08/25 (magnesium chloride) tabs tablet,delayed release (Mag 64) apixaban 5 mg tablet 5 mg PO BID #180 tabs 05/09/24 03/08/25 clopidogrel 75 mg tablet (Plavix) 75 mg PO DAILY #90 tabs 05/09/24 03/08/25 nitroglycerin 0.4 mg sublingual 0.4 mg sublingual Q5-15M PRN chest 05/09/24 03/08/25 tablet pain #25 tabs melatonin 3 mg capsule 6 mg PO HS PRN 07/02/24 03/08/25 spironolactone 25 mg tablet 12.5 mg (1/2 x 25 mg) PO DAILY #45 07/02/24 03/08/25 tabs pantoprazole 40 mg tablet,delayed 40 mg PO DAILY #90 tabs 07/31/24 03/08/25 release rosuvastatin 40 mg tablet 40 mg PO DAILY #90 tabs 10/04/24 03/08/25 lisinopril 10 mg tablet 10 mg PO DAILY #90 tabs 11/21/24 03/08/25 metoprolol succinate 50 mg 50 mg PO DAILY #90 tabs 11/21/24 03/08/25 tablet,extended release 24 hr Previous Rx's ?Medication ?Instructions ?Recorded magnesium chloride 64 mg 128 mg (2 x 64 mg) PO DAILY #180 10/13/20 (magnesium chloride) tabs tablet,delayed release (Mag 64) apixaban 5 mg tablet 5 mg PO BID #180 tabs 05/09/24 clopidogrel 75 mg tablet (Plavix) 75 mg PO DAILY #90 tabs 05/09/24 nitroglycerin 0.4 mg sublingual 0.4 mg sublingual Q5-15M PRN chest 05/09/24 tablet pain #25 tabs spironolactone 25 mg tablet 12.5 mg (1/2 x 25 mg) PO DAILY #45 07/02/24 tabs pantoprazole 40 mg tablet,delayed 40 mg PO DAILY #90 tabs 07/31/24 release rosuvastatin 40 mg tablet 40 mg PO DAILY #90 tabs 10/04/24 lisinopril 10 mg tablet 10 mg PO DAILY #90 tabs 11/21/24 metoprolol succinate 50 mg 50 mg PO DAILY #90 tabs 11/21/24 tablet,extended release 24 hr Allergies Allergy/AdvReac Type Severity Reaction Status Date / Time Tetanus Vaccines and Toxoid Allergy Unknown LARGE Verified 03/08/25 10:30 (Tetanus Vaccines \T\ Toxoid) LOCAL REACTION losartan AdvReac Intermediate Unknown Verified 03/08/25 10:30 oxycodone AdvReac Intermediate HALLUCINATI Verified 03/08/25 10:30 ONS ezetimibe AdvReac INTOLERANT Verified 03/08/25 10:30 General Stated Complaint: Dizzy/Sync HUONG: 3 Exam Narrative Exam Narrative: Gen: awake and alert, in no apparent distress. Appears well nourished. HEENT: PERRL, EOMs full and without nystagmus. External ears and nose normal, mucous membranes moist. Neck: Supple, full range of motion, no observable masses Lungs: No increased work of breathing, lung sounds clear and equal bilaterally without wheezes, rhonchi, or rales. CV: Heart with regular rate and rhythm, no murmurs auscultated. Strong and symmetrical radial pulses. Abdomen: Soft, nondistended, non-tender to palpation. No rigidity, rebound tenderness, or guarding. MSK: No joint swelling, no redness. Full ROM without limitation, no external traumatic findings. Skin: No rashes or lesions to visualized skin. Normal color, warm, and dry. Neuro: Cranial nerves II-XII intact and symmetrical bilaterally. 5/5 strength in all muscle groups x4 extremities. No sensory deficits. Ambulates with steady gait. The patient has some difficulty with short-term memory but is otherwise alert and oriented Psych: Appropriate for situation. Course Vital Signs Vital signs: Vital Signs Temperature 36.5 C 03/08/25 10: Pulse 49 L 03/08/25 10:26 Respiratory Rate 16 03/08/25 10:26 Blood Pressure 128/54 L 03/08/25 10:26 Pulse Oximetry 98 03/08/25 10: Temperature 36.5 C 03/08/25 10:26 Pulse 53 L 03/08/25 11:20 Pulse 53 L 03/08/25 11:20 Respiratory Rate 11 L 03/08/25 11:20 Respiratory Effort Normal 03/08/25 10:34 Respiratory Depth Normal 03/08/25 10:34 Respiratory Pattern Normal 03/08/25 10:34 Blood Pressure 126/58 L 03/08/25 11:16 Blood Pressure Mean 81 03/08/25 11:16 Blood Pressure Position Supine 03/08/25 10:26 Pulse Oximetry 99 03/08/25 11:20 Oxygen Delivery Method Room Air 03/08/25 10:26 Oxygen Flow Rate 0 03/08/25 10:26 Pain Level 0 03/08/25 10:26 Lab/Test Results Lab/Test Results: Laboratory Tests Range/Units 03/08/25 10:35 WBC (4.4-10.8) 10^3/uL 5.21 RBC (4.36-5.78) 10^6/uL 4.20 L Hgb (13.5-17.5) g/dL 13.5 Hct (40.0-50.0) % 41.8 MCV (80-95) fL 100 H MCH (27.0-33.0) pg 32.1 MCHC (32.0-36.0) % 32.3 RDW (11.8-14.1) % 12.4 Plt Count (130-400) 10^3/uL 246 MPV (8.0-11.0) fL 9.2 Immature Gran % % 0.0 Neutrophils % % 50.6 Lymphocytes % % 38.4 Monocytes % % 8.3 Eosinophils % % 2.1 Basophils % % 0.6 Nucleated RBC % (0.0-0.3) % 0.0 Absolute Neutrophils (1.2-6.7) 10^3/uL 2.64 Absolute Lymphocytes (1.2-3.4) 10^3/uL 2.00 Absolute Monocytes (0.1-0.8) 10^3/uL 0.43 Absolute Eosinophils (0.0-0.7) 10^3/uL 0.11 Absolute Basophils (0.0-0.2) 10^3/uL 0.03 Sodium (136-145) mmol/L 139 Potassium (3.5-5.1) mmol/L 4.4 Chloride (98-107) mmol/L 105 Carbon Dioxide (21.0-32.0) mmol/L 25.7 Anion Gap (3-11) mmol/L 8.3 BUN (7-18) mg/dL 24 H Creatinine (0.70-1.30) mg/dL 0.8 Est GFR (CKD-EPI 2020) (mL/min/1.73m2) 91.72 Glucose (74-106) mg/dL 124 H Calcium (8.5-10.1) mg/dL 8.7 Magnesium (1.8-2.4) mg/dL 2.1 Total Bilirubin (0.2-1.0) mg/dL 0.6 AST (15-37) U/L 26 ALT (16-63) U/L 32 Alkaline Phosphatase (46-116) U/L 60 Troponin I (<or=76) ng/L 13 Total Protein (6.4-8.2) g/dL 7.5 Albumin (3.4-5.0) g/dL 3.5 Medical Decision Making This is a 74-year-old male patient presenting for evaluation of a syncopal episode. My differential includes but is not limited to cardiac syncope including arrhythmia, ACS, certainly considered orthostasis and vasovagal syndrome, dehydration, metabolic and electrolyte derangement, kidney injury. I considered stroke, intracranial hemorrhage, considered seizure though no seizure-like activity was reported to me. Reassuringly, the patient is at this time back to his neurological baseline, and did not sustain traumatic injury during this event. We will obtain laboratory studies to include CBC, CMP, magnesium, troponin, and will obtain an EKG. I will also obtain a CTA of the brain and neck to evaluate out for abnormalities. - EKG reviewed by myself, showing a sinus bradycardia with a first-degree heart block, no evidence of ischemia. I independently interpreted the laboratory studies, which show no significant leukocytosis, anemia, or thrombocytopenia. The chemistry panel is without evidence of electrolyte abnormality, kidney dysfunction, or liver injury. Troponin is normal and without interval change on 1 hour recheck. I held on further fluid administration given the patient's normalized blood pressure, and his history of heart failure, though his BUN to creatinine ratio is very slightly above 20:1. CT obtained shows a nonhemorrhagic infarct in the right occipital parietal region, acuity unclear. Given this, the recommendation was to obtain MRI, which was done this MRI shows that the right parietal occipital lesion correlates with encephalomalacia and is likely not acute, however, we do note a small acute or subacute infarct in the left frontal lobe. The patient is certainly already optimized from medication standpoint for his history of stroke, on Plavix and a statin, and is already anticoagulated for his atrial fibrillation. However, given his high risk syncope which is potentially cardiac in nature, and this new ischemic stroke finding, I do recommend admission to the hospital for observation on telemetry, and optimization of stroke therapies including repeat cardiac echo if recommended by teleneurology. I did place a consult order for teleneurology, but given the fact that this patient is medically optimized, without neurodeficit, and is not a tPA candidate or candidate for thrombectomy, I feel that it is reasonable for this patient to undergo this neurological evaluation in the inpatient environment. I discussed the case with the hospitalist, who is graciously accepted this patient for admission to their service. Patient remained hemodynamically appropriate while under my care and was transferred to the floor without incident. Carmela Perdue MD Medical Records Medical records reviewed: Yes I reviewed the patient's medical records. Lab Data Lab results reviewed: Yes I reviewed the patient's lab results. Quality:SDOH Health Related Social Needs: No Data to Display PFSH All Active Problems (Updated 03/08/25 @ 16:05 by Carmela Perdue MD) Ischemic stroke (Acute) Syncope (Chronic) ASCVD (arteriosclerotic cardiovascular disease) (Chronic) CO 1987 s/p CABG x 3 in 2002 and SYED to left circumflex artery in 2013. NSTEMI 03/2024 s/p SYED to LAD. 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 Essential hypertension (Chronic) Hyperlipidemia (Chronic) Psoriasis (Chronic) Prediabetes (Chronic) Sensorineural hearing loss, bilateral (Chronic) Bilateral hearing aids Meniere disease (Chronic) Diverticulosis of colon (Chronic) Medical History (Updated 03/08/25 @ 16:05 by Carmela Perdue MD) Non-ST elevation CO (NSTEMI) (~03/2024) Basal cell carcinoma Tubular adenoma of colon /2015 CVA (cerebral vascular accident) (~10/2022) And 1997 Myocardial infarction (~1987) Herpes zoster Smoker Transient ischemic attack Surgical History S/P coronary artery stent placement (04/24/24) SYED to LCX 2013, SYED to LAD 2023 Status post appendectomy Status post three vessel coronary artery bypass (~2002) Status post tonsillectomy Status post vasectomy Family History Mother , age 67 Breast cancer Lung cancer Brain cancer Father , age 69 Diabetes Alcohol abuse Heart disease Stroke Paternal Grandfather Hypertensive disorder, systemic arterial Heart disease Paternal Grandmother Hypertensive disorder, systemic arterial Maternal Grandmother Diabetes Social History Smoking/Tobacco Use Status: Former Tobacco Use tobacco type: cigarettes Tobacco: How many years used: 5 Second Hand Exposure: Yes Smoking risk assessment performed?: Yes Alcohol Intake: current Alcohol Intake frequency: a few times a week Alcohol type: beer and hard liquor Drug use: Never Substance use type: does not use Adopted: No Caregiver/Support person: No Foster care: No Household members: spouse Housing: house Number of Children: 2 number of grandchildren: 4 Communication Needs: None Education Level: high school Do you need help understanding health information?: Rarely current occupation: Retired Pets and animals: No Sexually active: Yes Do you think of yourself as: straight/heterosexual Current gender identity: male What is your relationship status?: How often do you talk on the phone with friends or family?: three or more times per week How often do you get together with friends or relatives?: three or more times per week How often do you attend denominational or buddhism services?: decline to answer Do you belong to any clubs or organized social groups?: decline to answer Panel score (0-1 are the most socially isolated patients): 2 What type of physical activity do you participate in: walking Duration: 15-30 minutes/day Frequency: daily Adrianna/Mormon: Restoration Special adrianna needs: No Agree to transfusion: Yes Seatbelt use: always Helmet use: Yes Helmet use: always Drive intox or ride w/intox delivery driver/supervisor: No Working smoke detector in home: Yes Carbon monox detector in home: Yes Firearms in home: Yes Firearms unloaded and locked: No Do you feel safe at home: Yes Do you feel safe in your relationship?: Yes Victim of physical abuse: No Victim of emotional abuse: No Victim of sexual abuse: No Would you like helpful sources: No
[2025-03-08 12:00] LABS: Troponin I 17 ng/L (<or=76)
[2025-03-08] MEDS: Normal Saline - Diluent 50 ML VIAL IJ (12:14)
[2025-03-08] MEDS: Omnipaque 350 MG/ML 100 ML BTL 70 ML IJ (12:17)
--- NOTE | 2025-03-08 12:32 | DI.CT_ITS ---
Exam(s) CT BRAIN NECK CTA EXAM: CT BRAIN NECK CTA CLINICAL HISTORY: syncope and confusion, sudden headache. TECHNIQUE: Imaging Protocol: Axial CT angiography was performed with multi-slice acquisition and mu lti-planar and/or 3D reconstructions. CONTRAST MATERIAL: Intravenous: Omnipaque 350 Contrast volume:structured data in ml COMPARISON: No exams were available for comparison FINDINGS: CTA Neck W: Aortic arch anatomy: The aortic arch anatomy is conventional and there is no significant stenosis at the origin of the great vessels off of the aortic arch. No intimal flap evident. Anterior circulation: Both common carotid arteries ascend with normal luminal diameters. At the level the carotid bulbs and proximal internal carotid arteries there is calcified plaque noted bilaterally, slightly more prominent on the left side. Extends into the proximal internal carotid a rteries. However, the amount of stenosis is only estimated at 10 percent on the right side and 20 pe rcent on the left side. The internal carotid arteries above this level in the upper neck are straigh t line non tortuous and patent and they are also demonstrated be patent in the skull base-carotid can als. Posterior circulation: Both vertebral arteries originate in conventional fashion off of the subclavian arteries and there is no obvious stenosis at the origin of the vertebral arteries. Both vertebral arteries exhibit normal luminal diameters within the foramen transversarium. No evidence of vertebral artery thrombosis nor dissection. There is no vertebral artery calcificatio n evident at the skull base. Both vertebral arteries contribute to the formation of the basilar artery at the skull base. CTA Brain W: Anterior circulation: Both internal carotid arteries are patent in the skull base-carotid canals as well as within the cave rnous sinuses. There is mural calcification within but both intra cavernous ICAs but no evident FIGO grade stenosis. The supraclinoid aspects of the ICAs are patent. Both A1 segments are patent as are the anterior cer ebral arteries and there is no evidence of aneurysm at the level of the anterior communicating artery . Both middle cerebral arteries are patent with no evidence of significant stenosis nor intraluminal th rombus. There also no aneurysms of these vessels. Posterior circulation: The basilar artery ascends in the midline. Distally it gives off patent bilateral superior cerebella r arteries. Above this level the basilar artery terminates as patent posterior cerebral artery. The left posteri or cerebral artery is predominantly fed by a posterior communicating artery on the left side of the c [id number]. There is no evidence of aneurysm at the tip of the basilar artery nor elsewhere in the uhwtgf-gf-Ebbv is. CT BRAIN: No evidence of intracranial hemorrhage. There is a prominent area of abnormal hypodensity in the rig ht occipital parietal region consistent with infarct which may not be acute. There is no hemorrhage at this level. There are no ring enhancing lesions in the brain nor abnormal meningeal enhancement. There is some bilateral periventricular hypodensity consistent with chronic small vessel disease. IMPRESSION: 1. There is some partially calcified plaque at the carotid bifurcations and proximal ICAs on both phylicia es the neck but estimated at less than 20 percent stenosis bilaterally. 2. Patent vertebral arteries. No evidence of stenosis nor thrombosis nor dissection of these vessels . 3. Patent intracranial arteries. 4. Nonhemorrhagic infarct in the right occipital parietal region which is possibly not acute but with out prior imaging studies is difficult to determine accurately if there is superimposed acute or suba cute component. Recommend follow-up MRI with diffusion imaging. Called by myself to ER 03/08/2025 at 12:45 pm RADIATION DOSE DELIVERED: 2,218.03mGy.cm Total DLP DATA REPOSITORY: All CT scans at this facility are submitted to the National Radiology Data Registry (NRDR) Dose Index Registry (DIR) with the [employer] (ACR). RADIATION OPTIMIZATION: All CT scans at this facility use at least one of these dose optimization te chniques: automated exposure control; mA and/or kV adjustment per patient size (includes targeted exa ms where dose is matched to clinical indication); or iterative reconstruction.
--- NOTE | 2025-03-08 12:45 | DI.MRI_ITS ---
Exam(s) MR BRAIN WO EXAM: MR BRAIN WO CLINICAL HISTORY: Syncope, eval new stroke vs old TECHNIQUE: Multiplanar multisequence MRI of the brain was performed. COMPARISON: CT CT BRAIN NECK CTA from 03/08/2025 FINDINGS: VENTRICLES AND EXTRA AXIAL SPACES: Normal in size and morphology for the patient's age. MIDLINE SHIFT: None. CEREBRAL PARENCHYMA: Acute area restricted diffusion in the left frontal lobe consistent with an acut e/subacute infarct. There is an area of encephalomalacia involving the right parietal super lobe cor responding to the finding seen on the CT scan of the brain from earlier in the day. No space-occupyi ng lesion identified. There are areas of hyperintense signal seen in the white matter on the FLAIR an d T2 weighted images most consistent with chronic microvascular ischemic disease. HEMORRHAGE: There are few foci of hypointensity on the gradient images. Differential considerations include cerebral amyloid, vascular malformations, old microhemorrhages or trauma. BRAINSTEM/CEREBELLUM: Normal. CALVARIUM: Normal. VISUALIZED PARANASAL SINUSES/MASTOIDS:Clear. [place]: Normal flow void. PITUITARY GLAND: Unremarkable. OTHER FINDINGS: None. IMPRESSION: 1. Small acute/subacute infarct involving the left frontal lobe. 2. Encephalomalacia involving the right parietal occipital lobe corresponding to the finding seen on the CT scan from earlier in the day. 3. Age-appropriate cerebral atrophy and chronic microvascular ischemic disease. DATA REPOSITORY:
--- NOTE | 2025-03-08 15:29 | W.PC.ACHO ---
Registration Status: Primary Language: Preferred Language: ED Information & Data Chief Complaint Dizzy/Sync 03/08/25 11:49 Triage Note pt at lunch, started feleing 03/08/25 10:26 hot and dizzy, judie reported be passed out. they called 911. significant cardiac hx. stoke assessment negative, no cp, no sob. pt states he has no symptoms at this time. axox4. sinus bradycardia on monitor. Medical / Surgical History (Last Updated 11/21/24 @ 15:23 by Syeda Singh NP) Non-ST elevation [place] (NSTEMI) (~03/2024) Basal cell carcinoma Tubular adenoma of colon CVA (cerebral vascular accident) (~10/2022) Myocardial infarction (~1987) Herpes zoster Smoker Transient ischemic attack (Last Reviewed 06/20/24 @ 18:26 by Ursula Mason APRN) S/P coronary artery stent placement (04/24/24) Status post appendectomy Status post three vessel coronary artery bypass (~2002) Status post tonsillectomy Status post vasectomy Most Recent Vital Signs Temperature 36.5 C 03/08/25 10:26 Pulse 53 L 03/08/25 14:31 Pulse 53 L 03/08/25 14:31 Respiratory Rate 21 03/08/25 14:31 Respiratory Effort Normal 03/08/25 10:34 Respiratory Depth Normal 03/08/25 10:34 Respiratory Pattern Normal 03/08/25 10:34 Blood Pressure 149/62 H 03/08/25 14:30 Blood Pressure Mean 91 03/08/25 14:30 Blood Pressure Position Supine 03/08/25 10:26 Pulse Oximetry 97 03/08/25 14:31 Oxygen Delivery Method Room Air 03/08/25 10:26 Oxygen Flow Rate 0 03/08/25 10:26 Pain Level 0 03/08/25 10:26 Allergies Tetanus Vaccines and Toxoid (Tetanus Vaccines \T\ Toxoid) Allergy (Unknown, Verified 03/08/25 10:30) LARGE LOCAL REACTION losartan Adverse Reaction (Intermediate, Verified 03/08/25 10:30) Unknown oxycodone Adverse Reaction (Intermediate, Verified 03/08/25 10:30) HALLUCINATIONS ezetimibe Adverse Reaction (Verified 03/08/25 10:30) INTOLERANT Active Medications Generic Name Dose Route Start Last Admin Trade Name Freq PRN Reason Stop Dose Admin Iohexol 70 ml 03/08/25 12:15 03/08/25 12:17 Omnipaque 350 Mg/Ml 100 Ml Btl IJ 04/07/25 23:59 70 ml DIRECTED ELVIS Administration Sodium Chloride 50 ml 03/08/25 12:15 03/08/25 12:14 Normal Saline - Diluent 50 Ml Vial IJ 50 ml .FOR DI USE ELVIS Administration IV IV Catheter Type [Left Saline Lock Antecubital] IV Catheter Gauge [Left 18 Antecubital] Diagnostics 03/08/25 03/08/25 03/08/25 Range/Units 13:42 11:40 10:35 WBC 5.21 (4.4-10.8) 10^3/uL RBC 4.20 L (4.36-5.78) 10^6/uL Hgb 13.5 (13.5-17.5) g/dL Hct 41.8 (40.0-50.0) % MCV 100 H (80-95) fL MCH 32.1 (27.0-33.0) pg MCHC 32.3 (32.0-36.0) % RDW 12.4 (11.8-14.1) % Plt Count 246 (130-400) 10^3/uL MPV 9.2 (8.0-11.0) fL Immature Gran % 0.0 % Neutrophils % 50.6 % Lymphocytes % 38.4 % Monocytes % 8.3 % Eosinophils % 2.1 % Basophils % 0.6 % Nucleated RBC % 0.0 (0.0-0.3) % Absolute Neutrophils 2.64 (1.2-6.7) 10^3/uL Absolute Lymphocytes 2.00 (1.2-3.4) 10^3/uL Absolute Monocytes 0.43 (0.1-0.8) 10^3/uL Absolute Eosinophils 0.11 (0.0-0.7) 10^3/uL Absolute Basophils 0.03 (0.0-0.2) 10^3/uL Sodium 139 (136-145) mmol/L Potassium 4.4 (3.5-5.1) mmol/L Chloride 105 (98-107) mmol/L Carbon Dioxide 25.7 (21.0-32.0) mmol/L Anion Gap 8.3 (3-11) mmol/L BUN 24 H (7-18) mg/dL Creatinine 0.8 (0.70-1.30) mg/dL Est GFR (CKD-EPI 2020) 91.72 (mL/min/1.73m2) Glucose 124 H (74-106) mg/dL Calcium 8.7 (8.5-10.1) mg/dL Magnesium 2.1 (1.8-2.4) mg/dL Total Bilirubin 0.6 (0.2-1.0) mg/dL AST 26 (15-37) U/L ALT 32 (16-63) U/L Alkaline Phosphatase 60 (46-116) U/L Troponin I Pending 17 13 (<or=76) ng/L Total Protein 7.5 (6.4-8.2) g/dL Albumin 3.5 (3.4-5.0) g/dL Intake and Output - 24 Hour Total 03/08/25 10:18 thru 03/08/25 10:26 Weight 75.2 kg Falls Risk Assessment History of Falls No History 03/08/25 10:34 Contributing Factors No Factors 03/08/25 10:34 Ambulatory Aids Independent 03/08/25 10:34 Tubes/Lines None 03/08/25 10:34 Gait Evaluation No gait disturbance 03/08/25 10:34 Cognition No cognitive impairment 03/08/25 10:34 Fall Total Score 0 03/08/25 10:34 Level of Risk Standard/Low Risk 03/08/25 10:34 v v v v v v v v v Sending and/or Receiving Nurses: Please use comment section below to note any information pertinent to the patient hand-off not included above. Information / Comments: Report received from:bear
[2025-03-08 16:46] LABS: Troponin I 16 ng/L (<or=76)
--- NOTE | 2025-03-08 18:29 | HPE_ITS ---
Date of service: 03/08/25 Time of Service: 17:00 Assessment and Plan Assessment and plan (1) Syncope: Status: Chronic Assessment and plan: Patient passed out at home. No trauma. CT imaging revealed a non-hemorrhagic infarct in the right occipital-parietal region, with an MRI showing evidence of encephalomalacia and a small acute/subacute infarct in the left frontal lobe. This is likely an old lesion, with the current infarct being acute or subacute. The patient has no acute neurological deficits and no evidence of ischemia on EKG. The patient is medically optimized for stroke prevention (on Plavix and rosuvastatin), but the acute ischemic finding in the left frontal lobe warrants inpatient monitoring and further optimization of stroke therapy. Brain MRI: Incidental finding of small acute v subacute infarct involving the left frontal lobe; Encephalomalacia involving the right parietal occipital lobe corresponding to the finding seen on the CT scan from earlier in the day. Labs - neg trop x 3, lytes and cbc unremarkable Monitor for bleeding risks. Blood pressure: Continue lisinopril and rosuvastatin for hypertension and hyperlipidemia management, ensuring the patient remains hemodynamically stable. (2) Bradycardia: Status: Acute Assessment and plan: The patient has sinus bradycardia with a first-degree heart block on EKG. This may be contributing to the syncopal episode, particularly in the setting of heart failure and possible medication effects (e.g., beta-blockers). The patient?s bradycardia was noted to be asymptomatic, and the patient was hemodynamically stable after the fluid bolus. Further evaluation by teleneurology pending and cardiology may be necessary for management. (3) ASCVD (arteriosclerotic cardiovascular disease): Status: Chronic Assessment and plan: Stent history Continue Eliquis and Plavix, Statin and aspirin (4) History of stroke: Assessment and plan: Memory is poor ,no residual focal deficits (5) Hyperlipidemia: Status: Chronic Assessment and plan: Continue home statin dose (6) Discharge planning issues: Status: Deleted Assessment and plan: Home in the am if remains stable Already on all meds for stroke - [facility] recommends out pt echo and patient is ok to discharge w event monitor. discussed with Dr. Perez (7) Heart failure with reduced ejection fraction: Status: Chronic Assessment and plan: EF 36% echo 08/12/2024 Monitor fluid status carefully, given the patient?s history of heart failure and prior fluid bolus. Avoid aggressive fluid resuscitation unless indicated by clinical findings. Reassess volume status daily with input/output monitoring and serial weight checks. History of Present Illness History of Present Illness Chief Complaint: Passed out Narrative: Chief Complaint: * Syncopal episode. Details of Presenting Illness: * The patient is a 74-year-old male with a significant history of coronary artery disease, heart failure, atrial fibrillation, stroke, and hypertension. He presents for evaluation following a syncopal episode that occurred this morning while sitting at the table about to eat breakfast. * Syncopal event details: The episode was not preceded by dizziness, position changes, or other warning signs. He denies any associated chest pain, palpitations, or nausea. However, he appeared pale and was reported to be disoriented by his family. * EMS involvement: Upon EMS arrival, the patient was found to be slightly bradycardic with a borderline low blood pressure. A 250cc fluid bolus was administered due to his history of heart failure, after which he was transported to the emergency department. The patient?s symptoms improved during transport, and he arrived in the ED without complaints. Additional Symptoms: * The patient endorsed a sudden and severe sharp frontal headache, which resolved within a few seconds to a minute. This headache was not associated with any weakness, numbness, speech changes, or vision changes. * He is alert and oriented, with some ongoing short-term memory issues likely related to previous strokes, but otherwise neurologically stable. Past Medical History (Relevant to Presenting Complaint): * Coronary Artery Disease: Status post triple CABG in 2002, stent placement to the left circumflex artery (LCX) in 2013, and SYED to LAD in 2023. * Heart Failure with Reduced Ejection Fraction: Chronic condition, requiring careful management of volume status. * Atrial Fibrillation: On Eliquis for anticoagulation. * Stroke: History of ischemic stroke in 2022 and 1997, with no significant residual deficits except for cognitive impairment (vascular). * Hypertension and Hyperlipidemia: Managed with appropriate medications. Social History: * Tobacco use: Former smoker (5 years). * Alcohol use: Drinks beer and hard liquor a few times a week. * Retired: The patient is , lives with his spouse, and is independent in activities of daily living. Family History: * Father: at age 69 from heart disease, stroke, and diabetes. * Mother: at age 67 from cancer (breast, lung, brain). Medications: * Eliquis 5mg BID * Clopidogrel 75mg daily * Spironolactone 12.5mg daily * Metoprolol 50mg daily * Rosuvastatin 40mg daily * Pantoprazole 40mg daily * Magnesium chloride, multivitamins, and loratadine for other conditions. Teleneuro was ordered. Patient was placed on the medical floor on observation status over night. Patient is in agreement with plan of care. Patient is a full code. Review of Systems All systems reviewed & are unremarkable except as noted in HPI and below PFSH All Active Problems (Updated 03/08/25 @ 18:54 by Opal Samuel NP) Bradycardia (Acute) Syncope (Chronic) Ischemic stroke (Acute) Syncope (Chronic) ASCVD (arteriosclerotic cardiovascular disease) (Chronic) [place] 1987 s/p CABG x 3 in 2002 and SYED to left circumflex artery in 2013. NSTEMI 03/2024 s/p SYED to LAD. 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 Essential hypertension (Chronic) Hyperlipidemia (Chronic) Psoriasis (Chronic) Prediabetes (Chronic) Sensorineural hearing loss, bilateral (Chronic) Bilateral hearing aids Meniere disease (Chronic) Diverticulosis of colon (Chronic) Medical History (Updated 03/08/25 @ 18:54 by Opal Samuel NP) Non-ST elevation [place] (NSTEMI) (~03/2024) Basal cell carcinoma Tubular adenoma of colon /2015 CVA (cerebral vascular accident) (~10/2022) And 1997 Myocardial infarction (~1987) Herpes zoster Smoker Transient ischemic attack Surgical History S/P coronary artery stent placement (04/24/24) SYED to LCX 2013, SYED to LAD 2023 Status post appendectomy Status post three vessel coronary artery bypass (~2002) Status post tonsillectomy Status post vasectomy Family History Mother , age 67 Breast cancer Lung cancer Brain cancer Father , age 69 Diabetes Alcohol abuse Heart disease Stroke Paternal Grandfather Hypertensive disorder, systemic arterial Heart disease Paternal Grandmother Hypertensive disorder, systemic arterial Maternal Grandmother Diabetes Social History Smoking/Tobacco Use Status: Former Tobacco Use tobacco type: cigarettes Tobacco: How many years used: 5 Second Hand Exposure: Yes Smoking risk assessment performed?: Yes Alcohol Intake: current Alcohol Intake frequency: a few times a week Alcohol type: beer and hard liquor Drug use: Never Substance use type: does not use Adopted: No Caregiver/Support person: No Foster care: No Household members: spouse Housing: house Number of Children: 2 number of grandchildren: 4 Communication Needs: None Education Level: high school Do you need help understanding health information?: Rarely current occupation: Retired Pets and animals: No Sexually active: Yes Do you think of yourself as: straight/heterosexual Current gender identity: male What is your relationship status?: How often do you talk on the phone with friends or family?: three or more times per week How often do you get together with friends or relatives?: three or more times per week How often do you attend uatsdin or buddhism services?: decline to answer Do you belong to any clubs or organized social groups?: decline to answer Panel score (0-1 are the most socially isolated patients): 2 What type of physical activity do you participate in: walking Duration: 15-30 minutes/day Frequency: daily Adrianna/Sikh: Rastafari Special adrianna needs: No Agree to transfusion: Yes Seatbelt use: always Helmet use: Yes Helmet use: always Drive intox or ride w/intox stock driver: No Working smoke detector in home: Yes Carbon monox detector in home: Yes Firearms in home: Yes Firearms unloaded and locked: No Do you feel safe at home: Yes Do you feel safe in your relationship?: Yes Victim of physical abuse: No Victim of emotional abuse: No Victim of sexual abuse: No Would you like helpful sources: No Meds Allergies and Home Medications Allergies Allergy/AdvReac Type Severity Reaction Status Date / Time Tetanus Vaccines and Toxoid Allergy Unknown LARGE Verified 03/08/25 10:30 (Tetanus Vaccines \T\ Toxoid) LOCAL REACTION losartan AdvReac Intermediate Unknown Verified 03/08/25 10:30 oxycodone AdvReac Intermediate HALLUCINATI Verified 03/08/25 10:30 ONS ezetimibe AdvReac INTOLERANT Verified 03/08/25 10:30 Home Medications ?Medication ?Instructions ?Recorded ?Confirmed ?Type [id number] C-Mn 750 1 ea PO BID 04/04/13 03/08/25 History mg-600 mg-55 mg-5 mg tablet multivitamin (Daily Vitamin tablet) 1 tab PO DAILY 07/30/14 03/08/25 History honey flavor (bulk) 1 tsp PO QAM 07/13/15 03/08/25 History loratadine 10 mg tablet (Allergy 10 mg PO DAILY 10/09/19 03/08/25 History Relief (loratadine)) magnesium chloride 64 mg 128 mg (2 x 64 mg) PO DAILY #180 10/13/20 03/08/25 Rx (magnesium chloride) tabs tablet,delayed release (Mag 64) apixaban 5 mg tablet 5 mg PO BID #180 tabs 05/09/24 03/08/25 Rx clopidogrel 75 mg tablet (Plavix) 75 mg PO DAILY #90 tabs 05/09/24 03/08/25 Rx nitroglycerin 0.4 mg sublingual 0.4 mg sublingual Q5-15M PRN chest 05/09/24 03/08/25 Rx tablet pain #25 tabs melatonin 3 mg capsule 6 mg PO HS PRN 07/02/24 03/08/25 History spironolactone 25 mg tablet 12.5 mg (1/2 x 25 mg) PO DAILY #45 07/02/24 03/08/25 Rx tabs pantoprazole 40 mg tablet,delayed 40 mg PO DAILY #90 tabs 07/31/24 03/08/25 Rx release rosuvastatin 40 mg tablet 40 mg PO DAILY #90 tabs 10/04/24 03/08/25 Rx lisinopril 10 mg tablet 10 mg PO DAILY #90 tabs 11/21/24 03/08/25 Rx metoprolol succinate 50 mg 50 mg PO DAILY #90 tabs 11/21/24 03/08/25 Rx tablet,extended release 24 hr Exam Const General: cooperative and no acute distress HENMT Mouth: moist mucous membranes Eyes Conjunctivae: normal conjunctivae Sclera: normal sclerae Neck Neck: trachea midline Resp Auscultation: clear to auscultation bilaterally, no rales, no rhonchi and no wheezes Cardio Rate: regular rate and not tachycardic Rhythm: regular rhythm Heart Sounds: no murmurs GI Palpation: soft, not firm, no guarding, no masses, not rigid and nontender Skin General skin exam: no rashes or lesions noted Neuro General: patient alert, patient awake, patient oriented x3 and tone normal Cranial Nerves: CN's II-XI intact bilaterally, sense of smell intact, PERRL, EOM intact bilaterally, no nystagmus, facial strength normal, tongue midline, hearing normal, able to rotate head bilaterally and able to elevate shoulders bilaterally Cognition: normal cognition Speech: speech normal Gait: normal gait Motor: muscle tone normal throughout Sensory Exam: no sensory deficits noted Coordination: [id number] test normal, [id number] test normal and Romberg test normal Extrem General: no calf tenderness and no edema Psych Appearance: grossly normal Mental Status: mental status grossly normal Results Labs 03/08/25 10:35 03/08/25 10:35 Labs: Laboratory Results - last 24 hr 03/08/25 03/08/25 03/08/25 10:35 11:40 16:15 WBC 5.21 RBC 4.20 L Hgb 13.5 Hct 41.8 MCV 100 H MCH 32.1 MCHC 32.3 RDW 12.4 Plt Count 246 MPV 9.2 Immature Gran % 0.0 Neutrophils % 50.6 Lymphocytes % 38.4 Monocytes % 8.3 Eosinophils % 2.1 Basophils % 0.6 Nucleated RBC % 0.0 Absolute Neutrophils 2.64 Absolute Lymphocytes 2.00 Absolute Monocytes 0.43 Absolute Eosinophils 0.11 Absolute Basophils 0.03 Sodium 139 Potassium 4.4 Chloride 105 Carbon Dioxide 25.7 Anion Gap 8.3 BUN 24 H Creatinine 0.8 Est GFR (CKD-EPI 2020) 91.72 Glucose 124 H Calcium 8.7 Magnesium 2.1 Total Bilirubin 0.6 AST 26 ALT 32 Alkaline Phosphatase 60 Troponin I 13 17 16 Total Protein 7.5 Albumin 3.5 Last Vital Signs Temp 36.3 C L 03/08/25 16:04 Pulse 68 03/08/25 16:04 Resp 16 03/08/25 16:04 BP 164/71 H 03/08/25 16:04 Pulse Ox 99 03/08/25 16:04 PAWSS Have you Been Recently Intoxicated or Drunk Within the Last 30 days?: No Have you Ever Experienced Previous Episodes of Alcohol Withdrawal?: No Have you ever Experienced Withdrawal Seizures?: No Have you ever Experienced Delirium Tremens(DT)s?: No Have you ever undergone Alcohol Rehabilitation Treatment (i.e, inpt ot outpatient treatment programs)?: No Have you ever Experienced Blackouts?: No Have you ever Combined Alcohol with other Downers within the last 90 days?: No Have you ever Combined Alcohol with any other Substance of Abuse during the last 90 days?: No Positive Blood Alcohol level on Presentation? [PCS.BAL]: No Evidence of Increased Autonomic Activity (i.e. HR>120, tremor, sweating, agitation, nausea)?: No Result: 0 Time Spent Time spent with Patient: 55-74 minutes Time was spent: preparing to see the patient(eg.review tests), obtaining and/or reviewing separately otained hiistory, ordering medications,tests, procedures, referring, communicating with other health hourly caregiver, indepentently interpreting results, counseling the patient and care coordination
[2025-03-08] MEDS: Normal Saline Flush 10 ML SYR IVP (19:55)
[2025-03-08] MEDS: Melatonin 3 MG TAB 6 MG PO (19:55)
[2025-03-08] MEDS: Glucosamine/Chondroitin CAP 1 CAP PO (19:56)
[2025-03-08] MEDS: Acetaminophen 325 MG TAB PO (19:56)
[2025-03-08] MEDS: Apixaban 5 MG TAB PO (19:56)
[2025-03-09] MEDS: Acetaminophen 325 MG TAB PO (02:13)
[2025-03-09 02:34] VITALS: BP 118/67; PULSE 54; RESP 12; TEMP 36.6; O2SAT 96
[2025-03-09 06:32] LABS: Abs Immature Grans 0.01 10^3/uL (0.0-0.06); Absolute Basophil Count 0.04 10^3/uL (0.0-0.2); Absolute Eosinophil Count 0.15 10^3/uL (0.0-0.7); Absolute Lymphocyte Count 2.51 10^3/uL (1.2-3.4); Absolute Monocyte Count 0.64 10^3/uL (0.1-0.8); Absolute Neutrophil Count 3.39 10^3/uL (1.2-6.7); Basophils % 0.6 %; Eosinophils % 2.2 %; HCT 42.2 % (40.0-50.0); HGB 14.5 g/dL (13.5-17.5); Immature Grans % 0.1 %; Lymphocytes % 37.2 %; MCH 33.7 pg (27.0-33.0); MCHC 34.4 % (32.0-36.0); MCV 98 fL (80-95); MPV 9.1 fL (8.0-11.0); Monocytes % 9.5 %; Neutrophils % 50.4 %; Platelet Count 230 10^3/uL (130-400); RDW 12.5 % (11.8-14.1); RDW-SD 45.1 fL; WBC 6.74 10^3/uL (4.4-10.8)
[2025-03-09 06:54] LABS: BUN 19 mg/dL (7-18); CREATININE 0.8 mg/dL (0.70-1.30); Calcium 9.2 mg/dL (8.5-10.1); Chloride 105 mmol/L (98-107); Estimated GFR 91.72 (mL/min/1.73m2); Glucose 106 mg/dL (74-106); Sodium 138 mmol/L (136-145)
[2025-03-09 07:07] VITALS: BP 124/71; PULSE 55; RESP 20; TEMP 36.4; O2SAT 96
[2025-03-09] MEDS: Magnesium Chloride 64 MG TABCR 128 MG PO (07:49)
[2025-03-09] MEDS: Rosuvastatin 20 MG TAB 40 MG PO (07:50)
[2025-03-09] MEDS: Glucosamine/Chondroitin CAP 1 CAP PO (07:50)
[2025-03-09] MEDS: Pantoprazole 40 MG TABCR PO (07:50)
[2025-03-09] MEDS: Normal Saline Flush 10 ML SYR IVP (07:50)
[2025-03-09] MEDS: Multivitamin TAB 1 TAB PO (07:50)
[2025-03-09] MEDS: Metoprolol CR 50 MG TABCR PO (07:50)
[2025-03-09] MEDS: Lisinopril 10 MG TAB PO (07:50)
[2025-03-09] MEDS: Loratidine 10 MG TAB PO (07:50)
[2025-03-09] MEDS: Spironolactone 25 MG TAB 12.5 MG PO (07:50)
[2025-03-09] MEDS: Apixaban 5 MG TAB PO (07:50)
[2025-03-09] MEDS: Clopidogrel 75 MG TAB PO (07:50)
--- NOTE | 2025-03-09 09:01 | INITIAL_ITS ---
Date of service: 03/09/25 Time of Service: 09:01 Care Management Initial Assmt Initial Assessment Reason for Hospitalization: Syncope Functional Status/Living Situation [place] Advance Directives Advance Directives: Do you have an Advance Directive: Y 09/11/13 15:55 AD On File at [facility]: Y 06/06/13 08:15 Date Asked 12/21/18 06/26/24 12:51 AD Date Reviewed 03/08/25 03/08/25 10:41 COLST On File at [facility] COLST Date Scanned Code Status Resuscitation Status Full Code Portal Pt does not currently have a portal and education provided: Yes Insurance Coverage/Financial Issues Insurance: Medicare Part A & B [facility] MCR Supplement Care Team Visit Care Team Role Provider Type Kayla Durham NP NURSE PRACTITIONER Syeda Singh NP Primary Care Provider NURSE PRACTITIONER Carmela Perdue MD Emergency Provider [facility] STAFF PHYSICIAN Maikol Perez MD Admit Provider [facility] STAFF PHYSICIAN Attending Provider Discharge Potential Discharge Needs: PCP F/U Appt Anticipated Barriers to Discharge: None Identified Patient/Family Education Needs: Review discharge instructions, discuss Ask Me Three Social Determinants of Health Screening Social Determinants of health last assessed in clinic: 03/09/25 Will the Patient Participate in the Screening?: Yes Do you worry about having a steady place to live?: no Problems where you live: no known problems In the past 12 months, have you had to go without electric, gas, oil or water in your home?: no 1. Within the past 12 months, we worried whether our food would run out before w e got money to buy more.: Never true 2. Within the past 12 months, the food we bought just didn't last and we didn't have money to get more.: Never true Has lack of transportation kept you from medical appointments or from doing things needed for daily living?: no Has anyone in your life made you feel unsafe or unsupported?: no How hard is it for you to pay for the very basics like food, housing, medical care, and heating? Would you say it is:: Not hard at all Do you want help finding or keeping work or a job?: I do not need or want help If for any reason you need help with day-to-day activities such as bathing, preparing meals, shopping, managing finances, etc., do you get the help you need?: I don?t need any help How often do you feel lonely or isolated from those around you?: Never Do you speak a language other than Croatian at home?: No PFSH All Active Problems (Updated 03/08/25 @ 18:54 by Opal Samuel NP) Bradycardia (Acute) Syncope (Chronic) Ischemic stroke (Acute) Syncope (Chronic) ASCVD (arteriosclerotic cardiovascular disease) (Chronic) [place] 1987 s/p CABG x 3 in 2002 and SYED to left circumflex artery in 2013. NSTEMI 03/2024 s/p SYED to LAD. 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 Essential hypertension (Chronic) Hyperlipidemia (Chronic) Psoriasis (Chronic) Prediabetes (Chronic) Sensorineural hearing loss, bilateral (Chronic) Bilateral hearing aids Meniere disease (Chronic) Diverticulosis of colon (Chronic) Medical History (Updated 03/08/25 @ 18:54 by Opal Samuel NP) Non-ST elevation [place] (NSTEMI) (~03/2024) Basal cell carcinoma Tubular adenoma of colon CVA (cerebral vascular accident) (~10/2022) And 1997 Myocardial infarction (~1987) Herpes zoster Smoker Transient ischemic attack Surgical History S/P coronary artery stent placement (04/24/24) SYED to LCX 2013, SYED to LAD 2023 Status post appendectomy Status post three vessel coronary artery bypass (~2002) Status post tonsillectomy Status post vasectomy Family History Mother , age 67 Breast cancer Lung cancer Brain cancer Father , age 69 Diabetes Alcohol abuse Heart disease Stroke Paternal Grandfather Hypertensive disorder, systemic arterial Heart disease Paternal Grandmother Hypertensive disorder, systemic arterial Maternal Grandmother Diabetes Social History Smoking/Tobacco Use Status: Former Tobacco Use tobacco type: cigarettes Tobacco: How many years used: 5 Second Hand Exposure: Yes Smoking risk assessment performed?: Yes Alcohol Intake: current Alcohol Intake frequency: a few times a week Alcohol type: beer and hard liquor Drug use: Never Substance use type: does not use Adopted: No Caregiver/Support person: No Foster care: No Household members: spouse Housing: house Number of Children: 2 number of grandchildren: 4 Communication Needs: None Education Level: high school Do you need help understanding health information?: Rarely current occupation: Retired Pets and animals: No Sexually active: Yes Do you think of yourself as: straight/heterosexual Current gender identity: male What is your relationship status?: How often do you talk on the phone with friends or family?: three or more times per week How often do you get together with friends or relatives?: three or more times per week How often do you attend mosque or baptism services?: decline to answer Do you belong to any clubs or organized social groups?: decline to answer Panel score (0-1 are the most socially isolated patients): 2 What type of physical activity do you participate in: walking Duration: 15-30 minutes/day Frequency: daily Adrianna/Catholic: Congregational Special adrianna needs: No Agree to transfusion: Yes Seatbelt use: always Helmet use: Yes Helmet use: always Drive intox or ride w/intox log truck driver: No Working smoke detector in home: Yes Carbon monox detector in home: Yes Firearms in home: Yes Firearms unloaded and locked: No Do you feel safe at home: Yes Do you feel safe in your relationship?: Yes Victim of physical abuse: No Victim of emotional abuse: No Victim of sexual abuse: No Would you like helpful sources: No Readmission Within the Past 30 Days Yes or No: No
[2025-03-09 10:58] VITALS: BP 122/63; PULSE 64; RESP 18; TEMP 36.8; O2SAT 98
--- NOTE | 2025-03-09 11:01 | DSE_ITS ---
Date of service: 03/09/25 Time of Service: 11:01 DS: Diagnosis Discharge Diagnosis (1) Syncope: Status: Chronic (2) Bradycardia: Status: Acute (3) ASCVD (arteriosclerotic cardiovascular disease): Status: Chronic (4) History of stroke: (5) Hyperlipidemia: Status: Chronic (6) Heart failure with reduced ejection fraction: Status: Chronic Discharge Plan Disposition Patient Disposition: Home Condition: Improving Discharge Details Reason For Visit: Syncope Admit Date/Time: 03/08/25 15:00 Admit Provider: Maikol Perez Attending Provider: Maikol Perez Primary Care Provider: [facility] Course Hospital Course: This 74-year-old male patient past medical history significant for dyslipidemia, stroke, heart failure with reduced EF, cardiovascular disease atherosclerotic, atrial fibrillation fully anticoagulated presents to the emergency department after a syncopal episode while at home eating breakfast. Upon EMS arrival he was found to be bradycardic and hypotensive. He received a 250 cc fluid bolus and was brought to the emergency department for evaluation. He did undergo a CT scan with an MRI that did show a small acute/subacute infarct in the left frontal lobe this was actually thought to be an old lesion. He had returned to his baseline. Labs negative troponins negative x 3. He was monitored overnight on the MedSurg unit with no dysrhythmia on telemetry. He remained at his baseline hemodynamically stable pulse in the 60s with a blood pressure in the 120s systolic. He was eating and drinking bowels and bladder functioning. Feels he is stable and ready for discharge to home he will be discharged to home on a cardiac event recorder and outpatient echocardiogram. There have been no changes to his medication he should continue Plavix 75 mg daily with rosuvastatin 40 mg daily for stroke prevention he is also on apixaban for chronic A-fib. He is being discharged to home with no new services will follow- up outpatient and return sooner for new or worsening symptoms Discussed with Dr. Perez [place] Meds and New Rx's Prescriptions: Continued loratadine [Allergy Relief (loratadine)] 10 mg tablet 10 mg PO DAILY magnesium chloride [Mag 64] 64 mg tablet,delayed release (DR/EC) 128 mg PO DAILY Qty: 180 4RF metoprolol succinate 50 mg tablet extended release 24 hr 50 mg PO DAILY Qty: 90 3RF lisinopril 10 mg tablet 10 mg PO DAILY Qty: 90 3RF Rx Instructions: 1 tablet daily clopidogrel [Plavix] 75 mg tablet 75 mg PO DAILY Qty: 90 3RF nitroglycerin 0.4 mg tablet, sublingual 0.4 mg sublingual Q5-15M PRN (Reason: chest pain) Qty: 25 3RF Rx Instructions: 1 tablet every 5 minutes x 3 doses if needed for chest pain. Seek emergency services if not improving after first dose apixaban 5 mg tablet 5 mg PO BID Qty: 180 3RF melatonin 3 mg capsule 6 mg PO HS PRN spironolactone 25 mg tablet 12.5 mg PO DAILY Qty: 45 3RF qqypeyyuefq-senylqwzu-yxk C-Mn 1 EACH tablet 1 ea PO BID multivitamin [Daily Vitamin] 1 EACH tablet 1 tab PO DAILY pantoprazole 40 mg tablet,delayed release (DR/EC) 40 mg PO DAILY Qty: 90 3RF Rx Instructions: per [facility] discharge rosuvastatin 40 mg tablet 40 mg PO DAILY Qty: 90 3RF honey flavor (bulk) 120 ML liquid 1 tsp PO QAM Discharge Instructions Instructions: Stroke, Syncope (fainting), Bradycardia Additional Instructions: resume usual medications as directed wear local superintendent as instructed. Stand Alone Forms: Nursing Discharge Form Referrals: Syeda Singh NP [Primary Care Provider] - (1-2 weeks post hospitalization for stroke Please call your primary dr to set up a follow up appointment ) Activity:: Activity as Tolerated Equipment/Supplies:: No Equipment Needed Diet:: As Tolerated Discharge Orders Discharge Orders: Discharge Order (Routine); Ordered 03/09/25 Ordered By: Kayla Durham Other Ambulatory Orders: Cardiac Event Recorder (Routine) Timeframe: [id number] Facility: [facility] - Location: Respiratory Therapy Ordered By: Kayla Durham US echocardiogram w bubbles (Routine) Timeframe: 10 Day Facility: [facility] - Location: DIAGNOSTIC IMAGING Ordered By: Opal Samuel Discharge Data Discharge Date/Time-TO BE ENTERED AT DEPARTURE: 03/09/25 11:30 DS: Summary Time Spent with Patient providing and/or coordinating discharge services: Greater than 30 minutes Status at Discharge Functional status at discharge: independent ambulation Overall status at discharge: patient is back to baseline Mental Status: mental status grossly normal Speech and Movement: speech and movement normal Mood: congruent mood Affect: normal affect Quality:SDOH Health Related Social Needs: No Data to Display Exam Narrative Exam Narrative: Elderly male with stated age no acute distress head is atraumatic eyes nonicteric noninjected neurologic he is awake alert oriented to person place he is a poor historian he is at his baseline cranial nerves II through XII are grossly intact cardiovascular regular rate and rhythm respirations even and unlabored abdomen is soft nontender moves all extremities no peripheral edema Psych Mental Status: mental status grossly normal Speech and Movement: speech and movement normal Mood: congruent mood Affect: normal affect DS: Data Vitals/I&O Vitals and I&O: Vital Signs Temperature 36.8 C 03/09/25 10:58 Temperature Source Tympanic 03/09/25 10:58 Pulse 964 H 03/09/25 10:58 Pulse Rhythm Regular 03/08/25 15:40 Pulse 54 L 03/08/25 15:20 Respiratory Rate 18 03/09/25 10:58 Respiratory Effort Normal 03/08/25 15:40 Respiratory Depth Normal 03/08/25 15:40 Respiratory Pattern Normal 03/08/25 15:40 Blood Pressure 122/63 03/09/25 10:58 Blood Pressure Mean 82 03/09/25 10:58 Blood Pressure Position Supine 03/08/25 10:26 Pulse Oximetry 98 03/09/25 10:58 Oxygen Delivery Method Room Air 03/09/25 10:58 Oxygen Flow Rate 0 03/09/25 10:58 Pain Level 5 03/09/25 02:34 Comment Pt reports rt sided headache behind the eye. Tylenol provided. 03/09/25 02:34 Intake & Output 03/08/25 03/08/25 03/09/25 11:59 23:59 11:59 Intake Total 250 / 250 Output Total 250 / 250 Balance -240 / -240 250 / 250 Weight 75.2 kg 70.307 kg 68.719 kg Intake: IV Oral 250 / 250 Output: Urine 250 / 250 Other: Urine Color Yellow Yellow Urine Appearance Clear Clear Urine Odor Normal Comment Pt states that he used the bathroom this morning Data Completed and Pending Labs on day of discharge: Labs from last 24 hours 03/09/25 06:20: WBC 6.74, RBC 4.30 L, Hgb 14.5, Hct 42.2, MCV 98 H, MCH 33.7 H, MCHC 34.4 D, RDW 12.5, Plt Count 230, MPV 9.1, Immature Gran % 0.1, Neutrophils % 50.4, Lymphocytes % 37.2, Monocytes % 9.5, Eosinophils % 2.2, Basophils % 0.6, Nucleated RBC % 0.0, Absolute Neutrophils 3.39, Absolute Lymphocytes 2.51, Absolute Monocytes 0.64, Absolute Eosinophils 0.15, Absolute Basophils 0.04, Sodium 138, Potassium 4.0, Chloride 105, Carbon Dioxide 27.0, Anion Gap 6.0, BUN 19 H, Creatinine 0.8, Est GFR (CKD-EPI 2020) 91.72, Glucose 106, Calcium 9.2, Magnesium 2.0 03/08/25 16:15: Troponin I 03/08/25 11:40: Troponin I 03/08/25 10:35: Sodium 139, Potassium 4.4, Chloride 105, Carbon Dioxide 25.7, Anion Gap 8.3, BUN 24 H, Creatinine 0.8, Est GFR (CKD-EPI 2020) 91.72, Glucose 124 H, Calcium 8.7, Magnesium 2.1, Total Bilirubin 0.6, AST 26, ALT 32, Alkaline Phosphatase 60, Troponin I 13, Total Protein 7.5, Albumin 3.5 PFSH All Active Problems (Updated 03/08/25 @ 18:54 by Opal Samuel NP) Bradycardia (Acute) Syncope (Chronic) Ischemic stroke (Acute) Syncope (Chronic) ASCVD (arteriosclerotic cardiovascular disease) (Chronic) [place] 1988 s/p CABG x 3 in 2002 and SYED to left circumflex artery in 2013. NSTEMI 03/2024 s/p SYED to LAD. 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 Essential hypertension (Chronic) Hyperlipidemia (Chronic) Psoriasis (Chronic) Prediabetes (Chronic) Sensorineural hearing loss, bilateral (Chronic) Bilateral hearing aids Meniere disease (Chronic) Diverticulosis of colon (Chronic) Medical History (Updated 03/08/25 @ 18:54 by Opal Samuel NP) Non-ST elevation [place] (NSTEMI) (~03/2024) Basal cell carcinoma Tubular adenoma of colon /2015 CVA (cerebral vascular accident) (~10/2022) And 1997 Myocardial infarction (~1987) Herpes zoster Smoker Transient ischemic attack Surgical History S/P coronary artery stent placement (04/24/24) SYED to LCX 2013, SYED to LAD 2023 Status post appendectomy Status post three vessel coronary artery bypass (~2002) Status post tonsillectomy Status post vasectomy Family History Mother , age 67 Breast cancer Lung cancer Brain cancer Father , age 69 Diabetes Alcohol abuse Heart disease Stroke Paternal Grandfather Hypertensive disorder, systemic arterial Heart disease Paternal Grandmother Hypertensive disorder, systemic arterial Maternal Grandmother Diabetes Social History Smoking/Tobacco Use Status: Former Tobacco Use tobacco type: cigarettes Tobacco: How many years used: 5 Second Hand Exposure: Yes Smoking risk assessment performed?: Yes Alcohol Intake: current Alcohol Intake frequency: a few times a week Alcohol type: beer and hard liquor Drug use: Never Substance use type: does not use Adopted: No Caregiver/Support person: No Foster care: No Household members: spouse Housing: house Number of Children: 2 number of grandchildren: 4 Communication Needs: None Education Level: high school Do you need help understanding health information?: Rarely current occupation: Retired Pets and animals: No Sexually active: Yes Do you think of yourself as: straight/heterosexual Current gender identity: male What is your relationship status?: How often do you talk on the phone with friends or family?: three or more times per week How often do you get together with friends or relatives?: three or more times per week How often do you attend mandaeism or gnosticist services?: decline to answer Do you belong to any clubs or organized social groups?: decline to answer Panel score (0-1 are the most socially isolated patients): 2 What type of physical activity do you participate in: walking Duration: 15-30 minutes/day Frequency: daily Adrianna/Alevism: Religious Special adrianna needs: No Agree to transfusion: Yes Seatbelt use: always Helmet use: Yes Helmet use: always Drive intox or ride w/intox 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 Working smoke detector in home: Yes Carbon monox detector in home: Yes Firearms in home: Yes Firearms unloaded and locked: No Do you feel safe at home: Yes Do you feel safe in your relationship?: Yes Victim of physical abuse: No Victim of emotional abuse: No Victim of sexual abuse: No Would you like helpful sources: No Time Spent with Patient Time Spent with Patient: 45-69 minutes Time was spent: preparing to see the patient(eg.review tests), obtaining and/or reviewing separately otained hiistory, ordering medications,tests, procedures, indepentently interpreting results, counseling the patient and care coordination
--- NOTE | 2025-03-09 11:35 | PDOC.CMDIS ---
Date of service: 03/09/25 Time of Service: 11:35 LACE Index Scoring Tool Questions: Length of Stay (in days): 1 Was the patient admitted via the E.D.?: Yes Comorbidities: Cerebrovascular Disease and Congestive Heart Failure E.D. Visits: 1 Answers: Total Score: 8 Risk of Readmission: Low Risk Care Management Discharge Plan Reason for Hospitalization: Syncope Discharge Plan: Pan will be discharged home today. he will follow up with his community provider, cardiology and have an outpatient echocardiogram. He will be transported via private vehicle by his Gabriella. Patient/Family Education Needs: Review of discharge instructions, activity, limitations and plan of care . Discuss Ask Me Three. SDOH Health Related Social Needs: No Data to Display
== END 2025-03-09 11:30 | disposition home or self-care (01) ==
LOC: ER 10:41 → MS 15:36
PROVIDERS: Nurse Practitioner Family; Admitting Provider Hospitalist; Emergency Provider Emergency Medicine; PCP Nurse Practitioner Family; Responsible Provider Nurse Practitioner Acute Care; Visit Provider Hospitalist
DX: R55 Syncope and collapse; R00.1 Bradycardia, unspecified; I25.10 Atherosclerotic heart disease of native coronary artery without angina pectoris; Z86.73 Personal history of transient ischemic attack (TIA), and cerebral infarction without residual deficits; I50.20 Unspecified systolic (congestive) heart failure; E78.5 Hyperlipidemia, unspecified; G93.89 Other specified disorders of brain; I44.0 Atrioventricular block, first degree; Z95.5 Presence of coronary angioplasty implant and graft; I11.0 Hypertensive heart disease with heart failure; Z79.01 Long term (current) use of anticoagulants; Z79.899 Other long term (current) drug therapy; I25.2 Old myocardial infarction; K57.30 Diverticulosis of large intestine without perforation or abscess without bleeding; H90.3 Sensorineural hearing loss, bilateral; I67.9 Cerebrovascular disease, unspecified; R73.03 Prediabetes; Z95.1 Presence of aortocoronary bypass graft
CPT/HCPCS: 00123; 36415; 70496; 70498; 80048; 80053; 93005; 93270; 99285; 70551; 83735; 84484; 85025; 93010; 99222; 99239; G0378; J3490

== ENCOUNTER 2025-03-22 00:23 | Outpatient (CLI) | payer MEDICARE, SELFPAY ==
--- NOTE | 2025-03-22 08:30 | DI.US_ITS ---
APPROVED REPORT EXAM: Comprehensive 2D, Doppler, and color-flow Echocardiogram Patient Location: Out-Patient Lumber Straightener: Benito Sherwood RDCS (AE) Indications: Syncope, ischemic stroke, ascvd, heart failure with reduced EF Other Information Study Quality: Fair Conclusion Normal left ventricular wall thickness and chamber size. Ejection fraction is 50 to 55%. Wall motio n is normal Normal right ventricular size and function Both atria are mildly enlarged. Atrial septum is thin and hypermobile Trileaflet aortic valve with trace regurgitation Mitral annular calcification. Mild mitral regurgitation Trace to mild tricuspid regurgitation. Estimated right ventricular systolic pressure is 31 mmHg Wall motion Left Ventricle The left ventricle is normal size. The overall left ventricular systolic function appears normal. The re is normal left ventricular wall thickness. No segmental wall motion abnormalities There is no vent ricular septal defect visualized. LVEF is 50-55%. Right Ventricle The right ventricle is normal size. The right ventricular systolic function is normal. Atria Left atrium is mildly dilated. Right atrium is mildly dilated. Atrial septum is thin and hypermobile Aortic Valve The aortic valve is normal in structure. Aortic valve is trileaflet. There is no aortic valvular sten osis. Trace aortic regurgitation. Mitral Valve Mild mitral annular calcification. No evidence of mitral valve stenosis. Mild mitral regurgitation. Tricuspid Valve The tricuspid valve is normal in structure. There is no tricuspid valve stenosis. Mild to moderate tr icuspid regurgitation. The RVSP is 31.1 mmHg. Pulmonic Valve The pulmonary valve is normal in structure. There is no pulmonic valvular stenosis. Moderate pulmonic regurgitation. Great Vessels The aortic root is normal in size. The ascending aorta is normal in size. Aortic arch is not well vis ualized. IVC is normal in size and collapses >50% with inspiration. Pericardium There is no pericardial effusion. 2D Dimensions IVSD d PLAX 1.18 cm M: 0.6-1.2 Ao Root d 3.62 cm M: 3.1 - 3.7 LVPW d PLAX 1.20 cm M: 0.6 - 1.2 Ao Asc Diam d 3.44 cm M: 2.6 - 3.4 LVID d PLAX 5.35 cm M: 4.2 - 5.8 LVDs 3.97 cm M: 2.5 - 4.0 LV EF Teichholz 50.3 % FS 25.81 % LV EDV (Teich) 138.5 mL LV ESV (Teich) 68.8 mL Stroke Vol Index (Teich) 39.16 M-Mode TAPSE 1.41 cm (M/F) >1.7 Auto EF LV EDV A4C 158.9 mL LV EDV A2C 121.2 mL LV EDV BP 137.7 mL LV ESV A4C 79.5 mL LV ESV A2C 61.0 mL LV ESV BP 70.3 mL LVEF(%) A4C 50.0 % LVEF(%) A2C 49.7 % LVEF(%) BP 48.9 % LV SV A4C 79.4 ml LV SV A2C 60.2 ml LV SV BP 67.4 ml LV CO A4C 4.5 L/min LV CO A2C 3.4 L/min LV CO BP 3.9 L/min HR A4C 56.16 BPM HR A2C 56.95 BPM LV EDV Index (BP) LA Volume LA Length A4C 5.3 cm LA Length A2C 5.4 cm LA Area A4C s 14.97 cm2 LA Area A2C s 15.79 cm2 LA Vol A4C A-L 35.99 mL LA Vol A2C A-L 39.04 mL LA Vol Biplane A-L 37.9 mL LA Vol/BSA A4C A-L LA Vol/BSA A2C A-L LA Vol/BSA BP A-L 21.3 mL/m2 LA Vol A4C MOD 34.9 mL LA Vol A2C MOD 36.4 mL LA Vol BP MOD 35.9 mL RA Volume RA Area A4C 14.5 cm2 RA ESV A4C (A-L) 33.6mL RA Vol/BSA A4C A-L RA Length A4C 5.3 cm RA ESV A4C (MOD) 32.5mL LV Diastology MV E' medial 0.058 (>0.07 m/s) MV E Vmax 0.53 (0.4-1.3 m/s) MV E/E' MED 9.04 (<14) MV A Vmax 0.65 (0.4-1.3 m/s) MV E' lateral 0.092 (>0.1 m/s) E/A Ratio 0.8 MV E/E' LAT 5.71 (<14) MV E' Average 0.075 m/s MV E/E'(average) 7.00 Aortic Valve AoV Vmax 1.06 m/s LVOT Vmax 0.83 m/s AoV Peak Grad 4.5 mmHg LVOT Peak Grad 2.8 mmHg AoV Area (Vmax) 4.25 cm2 LVOT VTI 0.174 m AoV VTI 0.237 m LVOT Mean Grad 1.5 mmHg AoV Mean Jamie. 0.73 m/s LVOT SV 94.32 mL AoV Mean Grad 2.5 mmHg LVOT Diam s 2.60 cm AoV Area (VTI) 3.98 cm2 AV Regurg Peak Gr. 4.51 mmHg Velocity Ratio 0.78 Mitral Valve MV DT 329 (160-240 msec) Pulmonary Valve PV Vmax 1.00 (0.5-1.5 m/s) RVOT Vmax 0.33 m/s PV Peak Grad 4.0 mmHg RVOT Peak Gr. 0.4 mmHg PV Mean Jamie 0.68 m/s RVOT VTI 0.093 m PV Mean Grad 2.1 mmHg RVOT Mean Gr. 0.2 mmHg Tricuspid Valve RA Pressure 3.00 mmHg TR Vmax 2.65 m/s TR Peak Grad 28.0 mmHg RVSP (TR) 31.1 mmHg
== END 2025-03-22 00:43 ==
LOC: DI 00:23
PROVIDERS: PCP Nurse Practitioner Family; Visit Provider Internal Medicine Cardiovascular Disease
DX: I63.9 Cerebral infarction, unspecified (principal); R55 Syncope and collapse; I25.10 Atherosclerotic heart disease of native coronary artery without angina pectoris; I50.20 Unspecified systolic (congestive) heart failure
CPT/HCPCS: 93306

== ENCOUNTER 2025-08-26 12:15 | Outpatient (CLI) | payer MEDICARE, SELFPAY ==
--- NOTE | 2025-08-26 11:30 | DI.RAD_ITS ---
Exam(s) XR HAND LT COMPLETE EXAM: XR HAND LT COMPLETE CLINICAL HISTORY: BILAT THUMB PAIN. TECHNIQUE: 2D digital imaging was performed of the left hand. Three views were obtained. AP, lateral and oblique views were obtained. COMPARISON: No exams were available for comparison FINDINGS: BONES: No acute fracture is present. No bony destructive lesion is seen. JOINTS: No dislocation present. There is osteoarthritis of the left hand. The findings are most marked at the interphalangeal joint of the thumb characterized by joint space narrowing and osteophytes. SOFT TISSUE: Normal. IMPRESSION: Osteoarthritis of the left hand. There are marked arthritic changes seen at the interphalangeal joint of the thumb. DATA REPOSITORY: RADIATION DOSE DELIVERED:
--- NOTE | 2025-08-26 11:30 | DI.RAD_ITS ---
Exam(s) XR HAND RT COMPLETE EXAM: XR HAND RT COMPLETE CLINICAL HISTORY: BILAT THUMB PAIN. TECHNIQUE: 2D digital imaging was performed of the right hand. Three images were obtained. AP, lateral and oblique views were obtained. COMPARISON: CR,XR XR FINGER RT RING POST REDUC from 03/03/2021 FINDINGS: BONES: No acute fracture is present. No bony destructive lesion is seen. JOINTS: No dislocation present. There is osteoarthritis present in the right hand. The findings are marked at the 1st CMC joint characterized by joint space narrowing and osteophytes. SOFT TISSUE: Normal. IMPRESSION: Osteoarthritis of the right hand which is significant at the 1st CMC joint. DATA REPOSITORY: RADIATION DOSE DELIVERED:
== END 2025-08-26 12:16 | disposition home or self-care (01) ==
LOC: DIORS 12:15
PROVIDERS: PCP Nurse Practitioner Family; Referring Provider Nurse Practitioner Family; Visit Provider Student in an Organized Health Care Education/Training Program
DX: M18.0 Bilateral primary osteoarthritis of first carpometacarpal joints (principal)
CPT/HCPCS: 99213; 20604; J1010; 73130